=== PATIENT | male | born 1955 | race Caucasian/White ===

== ENCOUNTER → 2017-09-09 | Outpatient (CLI) | payer OTHER ==
[~2017-09-09] MED LIST: ALBUAER2 INH; AZIT250T PO; CMD5 PO; DLN100 PO; ENOX100I SQ; HYDR1SUS2 PO
[2017-09-09 12:39] LABS: ALT/SGPT 27 U/L (12-78); AST/SGOT 16 U/L (15-37); BLOOD UREA NITROGEN 17 mg/dl (7-18); BUN/CREATININE RATIO 14.9 (10-20); CARBON DIOXIDE 26 mmol/L (21-32); CHLORIDE 100 mmol/L (98-107); CREATININE 1.15 mg/dl (0.60-1.40); GLUCOSE 113 mg/dl (70-99); POTASSIUM 4.7 mmol/L (3.5-5.1); SODIUM 133 mmol/L (136-145)
[2017-09-09 12:44] LABS: ALKALINE PHOSPHATASE 151 U/L (45-117); CHOLESTEROL 231 mg/dl (0-200); CHOLESTEROL/HDL RATIO 4.5; HDL CHOLESTEROL 51 mg/dl; LDL CHOLESTEROL CALCULATED 143 mg/dl; PROSTATE SPECIFIC ANTIGEN 0.861 ng/ml (0.000-4.000); TRIGLYCERIDES 183 mg/dl (0-150); VERY LOW DENSITY LIPOPROT CALC 37 mg/dl
[2017-09-09 14:16] LABS: ESTIMATED AVERAGE GLUCOSE 108 mg/dl; HA1C FLAG Normal (Normal)
== END | disposition home or self-care (01) ==
LOC: C.LABBFT 11:09
PROVIDERS: ATTEND Nurse Practitioner
DX: I10 Essential (primary) hypertension (principal); R73.01 Impaired fasting glucose; G40.909 Epilepsy, unspecified, not intractable, without status epilepticus; E78.00 Pure hypercholesterolemia, unspecified; Z12.5 Encounter for screening for malignant neoplasm of prostate

== ENCOUNTER 2022-04-08 09:51 | Observation (INO) ==
[2022-04-08] MEDS ORDERED: methylPREDNISolone 125 MG/2 ML VIAL IV STA (10:18)
[2022-04-08] MEDS ORDERED: ALBUT/IPRATROP 3MG/0.5MG NEB 3 ML VIAL NEB STA (10:18)
[2022-04-08 10:37] LABS: Appearance Urine Clear (Clear); Bilirubin Urine Negative (Negative); Blood Urine Negative (Negative); Color Urine Yellow; Glucose Urine UA Negative (Negative); Ketones Urine Negative (Negative); Leukocyte Esterase Urine Negative (Negative); Nitrite Urine Negative (Negative); Protein Urine Negative (Negative); Specific Gravity Urine 1.014 (1.000-1.030); Urobilinogen Urine Negative (Negative); pH Urine 6.5 (4.5-7.5)
--- NOTE | 2022-04-08 10:39 | XRay Report ---
XR chest 1V portable CLINICAL HISTORY: Dyspnea TECHNIQUE: Single frontal radiograph of the chest was obtained. Comparison: Comparison is made to chest radiograph 03/07/2022 FINDINGS: No lines and tubes are seen. The cardiomediastinal silhouette is normal. The lungs are clear. No evid ence of pleural effusion or pneumothorax. IMPRESSION: No acute chest disease. ACT 112: Negative or not required by law. Electronically signed by: Andrey Campuzano M.D. 04/08/2022 10:38 AM
[2022-04-08 10:56] LABS: Alanine Aminotransferase 23 U/L (7-52); Albumin Globulin Ratio 1.4 (0.9-2); Albumin Level 4.2 gm/dl (3.4-5.0); Alkaline Phosphatase 110 U/L (34-104); Anion Gap 8 (3-11); Aspartate Aminotransferase 38 U/L (13-39); BUN Creatinine Ratio 9.3 (10-20); Bilirubin,Total 0.5 mg/dl (0.2-1.0); Blood Urea Nitrogen 8 mg/dl (6-23); Calcium 9.3 mg/dl (8.5-10.1); Carbon Dioxide 26 mmol/L (21-32); Chloride 95 mmol/L (98-107); Est GFR (African American) 103.3 ml/min; Est GFR (Non-African American) 89.1 ml/min; Globulin 3.1 gm/dl (2.5-4.0); Glucose 126 mg/dl (70-99(Fasting)); Potassium 3.7 mmol/L (3.5-5.1); Sodium 129 mmol/L (136-145); Total Protein 7.3 gm/dl (6.0-8.3)
[2022-04-08 11:02] LABS: Troponin I High Sensitivity 11.9 pg/ml (0-20)
[2022-04-08 11:11] LABS: D Dimer 640 ug/L FEU (0-500)
[2022-04-08 11:16] LABS: Hematocrit (blood only) 42.8 % (42-52); Hemoglobin 14.4 g/dL (14.0-18.0); Mean Corpuscular Hemoglobin 28.6 pg (25-34); Mean Corpuscular Hgb Conc 33.6 g/dL (32-36); Mean Corpuscular Volume 84.9 fL (80-100); Mean Platelet Volume 8.9 fL (7.4-10.4); Platelet Count 282 K/uL (130-400); RDW Coefficient of Variation 13.8 % (11.5-14.5); RDW Standard Deviation 42.4 fL (36.4-46.3); Red Blood Count 5.04 M/uL (4.7-6.1); White Blood Count 25.37 K/uL (4.8-10.8)
[2022-04-08] MEDS ORDERED: cefTRIAXone SODIUM 2,000 MG/70 ML BAG IV STA (11:24)
[2022-04-08 11:31] LABS: Basophils # (auto) 0.03 K/uL (0-0.2); Basophils % (auto) 0.1 %; Eosinophils # (auto) 0.04 K/uL (0-0.5); Eosinophils % (auto) 0.2 %; Immature Granulocytes # (auto) 0.09 K/uL (0.00-0.02); Immature Granulocytes % (auto) 0.4 %; Lymphocytes # (auto) 1.12 K/uL (1.2-3.4); Lymphocytes % (auto) 4.4 %; Monocytes # (auto) 1.68 K/uL (0.11-0.59); Monocytes % (auto) 6.6 %; Neutrophils # (auto) 22.41 K/uL (1.4-6.5); Neutrophils % (auto) 88.3 %
[2022-04-08 11:43] LABS: Influenza A virus by PCR Negative (Neg); Influenza B virus by PCR Negative (Neg); RSV by PCR Negative (Neg); SARS CoV2 RNA(COVID-19) InHosp NEGATIVE (Negative)
--- NOTE | 2022-04-08 11:53 | Emergency Department Note ---
Impression & Plan SOB (shortness of breath), Cough productive of yellow sputum, Tachypnea, Leukocytosis, Hyponatremia ED Provider Note INFORMANT: Patient ED PROVIDER(S): Anton Reilly MD CHIEF COMPLAINT: Shortness of breath PLAN: Disposition: Admitted Condition: Good Outpatient prescription management: none Referral: None MEDICAL DECISION MAKING: Patient presented with shortness of breath. He had a productive cough. Patient was very tachypneic. He had borderline low oxygen saturations but did not fall below 90%. He did feel better with supplemental oxygen. Patient was given nebulizer treatment and Solu-Medrol. Blood work is obtained. Chest x-ray was unremarkable. The patient was found to have a marked increase in his white blood cell count as well as a positive D-dimer. Troponin and BNP were negative. ECG did not reveal any acute ischemic change. Nonspecific changes present. T he patient underwent CT imaging of his chest. He was found to have groundglass opacities. No PE noted. Patient did have blood and sputum cultures done. He received IV Rocephin and doxycycline. Patient was still tachypneic and feeling short of breath. He was given an hour-long breathing treatment. Patient's blood pressure was significantly elevated and he received IV hydralazine. [facility]. Patient was evaluated in the emergency department by Dr. Gomez for further management. Also patient was found to have mild hyponatremia on his blood work. The patient has a history of mild hyponatremia. Triage Nursing notes reviewed and agree them. Vital Signs: reviewed and remarkable for tachypnea Differential diagnosis: Reactive airway disease, pneumonia, pneumothorax, COPD, CHF, infections, cardiac ischemia, pulmonary embolism, musculoskeletal, gastrointestinal, as well as other pathologies. Diagnostics interpreted by me: ECG: Twelve-lead ECG reveals a normal sinus rhythm at [address] abnormality. No ST elevation. No PACs or PVCs. Normal axis. Cardiac Monitoring: Cardiac monitoring ordered by me: The patient was placed on continuous cardiac monitoring and observed. It revealed a normal sinus rhythm at 81 beats per minute without ectopy or evidence of dysrhythmia. Imaging studies: Chest x-ray and CT scan as noted above. HPI: The patient is a 66 year old male with history of COPD who presents to the Emergency Room with complaints of shortness of breath . This started last 2 weeks and is worsening over the last several days. The patient also notes the following associated symptoms, chest pain with coughing, cough with blood-tinged sputum, generalized weakness, mild leg swelling bilaterally. The patient has tried his inhalers multiple times for relieving factors. Current pain is rated as 8/10. Pt denies LOC, headache, fevers, chills, diaphoresis, visual changes, neck pain, nausea, vomiting, abdominal pain, back pain, melena, hematochezia, urinary symptoms, numbness, weakness, lymphadenopathy, rash, or other complaints. ROS: See above HPI for pertinent positives & negatives. A total of 10 systems reviewed and were otherwise negative. PAST MEDICAL HISTORY:See Below , COPD PAST SURGICAL HISTORY:See Below, FAMILY HISTORY:See Below SOCIAL HISTORY:See Below, smoker HOME MEDICATIONS:See Below ALLERGIES:See Below VITALS:See Below PHYSICAL EXAMINATION: GENERAL: Awake, alert, uncomfortable and dyspneic appearing, in mild distress HENT: Normocephalic, atraumatic. Oropharynx unremarkable. EYES: Normal conjunctiva. Sclera non-icteric. NECK: Inspection normal. Non-tender. Supple. No nuchal rigidity. FROM. No masses. RESPIRATORY: Scattered rhonchi. Productive cough present. No wheezes. No rales. Increased respiratory effort. Tachypnea. CARDIAC: Normal rate. Normal rhythm. No murmurs. No rubs. Extremities warm and well perfused. Pulses equal. No JVD. GI: Soft, non-distended. No tenderness to palpation. No rebound or guarding. No masses. RECTAL: Deferred. MUSCULOSKELETAL: Atraumatic. Chest examination reveals no tenderness. The back is symmetrical on inspection without obvious abnormality. There is no CVA tenderness to palpation. No joint edema. LOWER EXTREMITIES: Calves are equal size bilaterally and non-tender. 1+ edema. No discoloration. NEURO: Normal sensorium. No sensory or motor deficits noted. SKIN: No rash or jaundice noted. Anton Reilly MD Past Med/Surg History Medical History (Updated 04/08/22 @ 14:10 by Archie Gomez MD) Fracture, carpal bone Surgical History Thrombophlebitis Tonsillectomy planned Family History Other Adopted Family history unknown Social History (Updated 02/12/22 @ 11:39 by Sofi Eli LPN) Smoking Status: Current every day smoker Tobacco Type: Cigarettes Age Started Using Tobacco: 18; packs per day: 0.25; Years Smoked: 44; Cigarettes Per Day: 20; Second Hand Exposure: Yes; Hx Alcohol Use: Yes Alcohol type: beer Hx Substance Use: No Preferred Language: Czech Communication Ability: Effective Visual Impairment: No Limitations Hearing Ability: Normal [employer] Consultant Required: No marital status: Single Current Living Situation: Other Current Living Situation Comment: roommate current occupational status: retired Feels Safe at Home: Yes Childhood Exposure to Second-Hand Smoke: Yes Diet Comment: Doesn't eat after 8 PM caffeine: Yes during the past year weight has: remained stable Dental Care, Regularly: No Physical Activity Frequency: 1-2 Times per Week Physical Activity Frequency Comment: weight lifting 60minutes Seatbelt Use: always Sunscreen Use: No Assistive Devices: None and Glasses Allergies Allergies Allergy/AdvReac Type Severity Reaction Status Date / Time phenobarbital Allergy Severe MIGRAINE/SEVERE Verified 02/12/22 11:32 PAIN Home Meds Home Medications Medication Instructions Recorded Confirmed aspirin 81 mg tablet,delayed 81 mg PO HS #30 tab 07/13/19 04/08/22 release tiotropium bromide 2.5 5 mcg INHALATION DAILY 02/04/22 04/08/22 mcg/actuation mist for inhalation (Spiriva Respimat) naproxen sodium 220 mg tablet 220 mg PO Q12H PRN 04/08/22 04/08/22 (Aleve) Previous Rx's Medication Instructions Recorded folic acid 1 mg tablet 1 mg PO DAILY #90 tab 12/01/21 phenytoin sodium extended 100 mg 300 mg PO BID #180 cap 01/01/22 capsule albuterol sulfate 90 mcg/actuation 2 puff INHALATION Q4H PRN #18 g 02/05/22 aerosol inhaler (Ventolin HFA) sildenafil 50 mg tablet 50 mg PO DAILY PRN #20 tab 02/12/22 budesonide-formoterol HFA 160 2 puff INH BID #10.2 gm 02/26/22 mcg-4.5 mcg/actuation aerosol inhaler (Symbicort) Results & Data (ED) Vital Signs Vital Signs - 24 hr 04/08/22 09:54 04/08/22 10:42 04/08/22 10:46 Temperature 36.8 C Temperature Source Temporal Artery Scan Pulse Rate 87 85 Pulse Rate [Apical] 85 Pulse Rhythm Regular Pulse Rhythm [Apical] Regular Pulse Strength [Apical] Normal Respiratory Rate 18 30 H 28 H Respiratory Effort / Characteristics Short of Breath Short of Breath Respiratory Depth Normal Respiratory Pattern Regular Blood Pressure 169/89 H Blood Pressure [Right Arm] 158/95 H Blood Pressure Mean 115 Blood Pressure Mean [Right Arm] 116 Blood Pressure Position [Right Arm] Sitting Pulse Oximetry 93 99 98 Oxygen Delivery Method Room Air Nasal Cannula Nasal Cannula Oxygen Flow Rate 4 4 Sepsis Recent Fever Within 48 Hours No Sepsis New/Unexplained Change in Mental Status No Sepsis Action Taken by Nursing No Action Required 04/08/22 10:54 04/08/22 12:26 04/08/22 12:55 Temperature Temperature Source Pulse Rate Pulse Rate [Apical] 75 76 Pulse Rhythm Pulse Rhythm [Apical] Pulse Strength [Apical] Respiratory Rate 24 19 Respiratory Effort / Characteristics Short of Breath Short of Breath Respiratory Depth Respiratory Pattern Blood Pressure Blood Pressure [Right Arm] 178/124 H Blood Pressure Mean Blood Pressure Mean [Right Arm] 142 Blood Pressure Position [Right Arm] Pulse Oximetry 99 99 99 Oxygen Delivery Method Nasal Cannula Nasal Cannula Oxygen Flow Rate 4 2 Sepsis Recent Fever Within 48 Hours Sepsis New/Unexplained Change in Mental Status Sepsis Action Taken by Nursing 04/08/22 14:05 Temperature Temperature Source Pulse Rate Pulse Rate [Apical] 81 Pulse Rhythm Pulse Rhythm [Apical] Pulse Strength [Apical] Respiratory Rate 22 Respiratory Effort / Characteristics Respiratory Depth Respiratory Pattern Blood Pressure Blood Pressure [Right Arm] 172/99 H Blood Pressure Mean Blood Pressure Mean [Right Arm] 123 Blood Pressure Position [Right Arm] Pulse Oximetry 100 Oxygen Delivery Method Nebulizer Oxygen Flow Rate Sepsis Recent Fever Within 48 Hours Sepsis New/Unexplained Change in Mental Status Sepsis Action Taken by Nursing Laboratory Data Result diagrams: 04/08/22 10:19 04/08/22 10:19 Lab Results 04/08/22 04/08/22 04/08/22 Range/Units 10:19 10:19 10:19 WBC 25.37 H (4.8-10.8) K/uL RBC 5.04 (4.7-6.1) M/uL Hgb 14.4 (14.0-18.0) g/dL Hct 42.8 (42-52) % MCV 84.9 (80-100) fL MCH 28.6 (25-34) pg MCHC 33.6 (32-36) g/dL RDW Std Deviation 42.4 (36.4-46.3) fL RDW Coeff of Tammi 13.8 (11.5-14.5) % Plt Count 282 (130-400) K/uL MPV 8.9 (7.4-10.4) fL Immature Gran % (Auto) 0.4 % Neut % (Auto) 88.3 % Lymph % (Auto) 4.4 % [place] % (Auto) 6.6 % Eos % (Auto) 0.2 % Baso % (Auto) 0.1 % Neut # (Auto) 22.41 H (1.4-6.5) K/uL Lymph # (Auto) 1.12 L (1.2-3.4) K/uL [place] # (Auto) 1.68 H (0.11-0.59) K/uL Eos # (Auto) 0.04 (0-0.5) K/uL Baso # (Auto) 0.03 (0-0.2) K/uL Immature Gran # (Auto) 0.09 H (0.00-0.02) K/uL D-Dimer 640 H* (0-500) ug/L FEU Sodium (136-145) mmol/L Potassium (3.5-5.1) mmol/L Chloride (98-107) mmol/L Carbon Dioxide (21-32) mmol/L Anion Gap (3-11) BUN (6-23) mg/dl Creatinine (0.6-1.4) mg/dl Est Cr Clr Drug Dosing Est GFR ( Amer) ml/min Est GFR (Non-Af Amer) ml/min BUN/Creatinine Ratio (10-20) Glucose (70-99(Fasting)) mg/dl Calcium (8.5-10.1) mg/dl Total Bilirubin (0.2-1.0) mg/dl AST (13-39) U/L ALT (7-52) U/L Alkaline Phosphatase (34-104) U/L Troponin I High Sens (0-20) pg/ml B-Natriuretic Peptide 68 (0-100) pg/ml Total Protein (6.0-8.3) gm/dl Albumin (3.4-5.0) gm/dl Globulin (2.5-4.0) gm/dl Albumin/Globulin Ratio (0.9-2) Urine Color Urine Appearance (Clear) Urine pH (4.5-7.5) Ur Specific [place] (1.000-1.030) Urine Protein (Negative) Urine Glucose (UA) (Negative) Urine Ketones (Negative) Urine Blood (Negative) Urine Nitrite (Negative) Urine Bilirubin (Negative) Urine Urobilinogen (Negative) Ur Leukocyte Esterase (Negative) SARS-CoV-2 (PCR) (Negative) Influenza Type A (PCR) (Neg) Influenza Type B (PCR) (Neg) RSV (RT-PCR) (Neg) 04/08/22 04/08/22 04/08/22 Range/Units 10:19 10:19 10:37 WBC (4.8-10.8) K/uL RBC (4.7-6.1) M/uL Hgb (14.0-18.0) g/dL Hct (42-52) % MCV (80-100) fL MCH (25-34) pg MCHC (32-36) g/dL RDW Std Deviation (36.4-46.3) fL RDW Coeff of Tammi (11.5-14.5) % Plt Count (130-400) K/uL MPV (7.4-10.4) fL Immature Gran % (Auto) % Neut % (Auto) % Lymph % (Auto) % [place] % (Auto) % Eos % (Auto) % Baso % (Auto) % Neut # (Auto) (1.4-6.5) K/uL Lymph # (Auto) (1.2-3.4) K/uL [place] # (Auto) (0.11-0.59) K/uL Eos # (Auto) (0-0.5) K/uL Baso # (Auto) (0-0.2) K/uL Immature Gran # (Auto) (0.00-0.02) K/uL D-Dimer (0-500) ug/L FEU Sodium 129 L (136-145) mmol/L Potassium 3.7 (3.5-5.1) mmol/L Chloride 95 L (98-107) mmol/L Carbon Dioxide 26 (21-32) mmol/L Anion Gap 8 (3-11) BUN 8 (6-23) mg/dl Creatinine 0.86 (0.6-1.4) mg/dl Est Cr Clr Drug Dosing Not Reportable Est GFR ( Amer) 103.3 ml/min Est GFR (Non-Af Amer) 89.1 ml/min BUN/Creatinine Ratio 9.3 L (10-20) Glucose 126 H (70-99(Fasting)) mg/dl Calcium 9.3 (8.5-10.1) mg/dl Total Bilirubin 0.5 (0.2-1.0) mg/dl AST 38 (13-39) U/L ALT 23 (7-52) U/L Alkaline Phosphatase 110 H (34-104) U/L Troponin I High Sens 11.9 (0-20) pg/ml B-Natriuretic Peptide (0-100) pg/ml Total Protein 7.3 (6.0-8.3) gm/dl Albumin 4.2 (3.4-5.0) gm/dl Globulin 3.1 (2.5-4.0) gm/dl Albumin/Globulin Ratio 1.4 (0.9-2) Urine Color Yellow Urine Appearance Clear (Clear) Urine pH 6.5 (4.5-7.5) Ur Specific [place] 1.014 (1.000-1.030) Urine Protein Negative (Negative) Urine Glucose (UA) Negative (Negative) Urine Ketones Negative (Negative) Urine Blood Negative (Negative) Urine Nitrite Negative (Negative) Urine Bilirubin Negative (Negative) Urine Urobilinogen Negative (Negative) Ur Leukocyte Esterase Negative (Negative) SARS-CoV-2 (PCR) NEGATIVE (Negative) Influenza Type A (PCR) Negative (Neg) Influenza Type B (PCR) Negative (Neg) RSV (RT-PCR) Negative (Neg) Administered Medications Doxycycline Hyclate 100 mg/ (Dextrose) 110 mls @ 50 mls/hr IV NOW STA Stop: 04/08/22 15:24 Last Admin: 04/08/22 14:04 Dose: 50 mls/hr Documented by: [id number] Discontinued Medications Albuterol (Albut/Ipratrop 3mg/0.5mg Neb 3 Ml Vial) 3 ml NEB NOW STA; Protocol Stop: 04/08/22 10:19 Last Admin: 04/08/22 10:33 Dose: 3 ml Documented by: [id number] Albuterol (Albut/Ipratrop 3mg/0.5mg Neb 3 Ml Vial) 12 ml NEB ONE ONE; Protocol Stop: 04/08/22 13:14 Last Admin: 04/08/22 13:49 Dose: 12 ml Documented by: [id number] Guaifenesin (Guaifenesin 600 Mg Tabcr) 1,200 mg PO ONE STA Stop: 04/08/22 13:56 Last Admin: 04/08/22 14:04 Dose: 1,200 mg Documented by: [id number] Hydralazine HCl (Hydralazine Hcl 20 Mg/Ml Vial) 5 mg IV NOW ONE Stop: 04/08/22 13:44 Last Admin: 04/08/22 14:04 Dose: Not Given Documented by: [id number] Ceftriaxone Sodium (Rocephin) 2,000 mg in 70 mls @ 140 mls/hr IV NOW STA Stop: 04/08/22 11:53 Last Infusion: 04/08/22 12:24 Dose: 0 mls/hr Documented by: [id number] Admin: 04/08/22 11:37 Dose: 140 mls/hr Documented by: [id number] Ioversol (Optiray 320 125ml) 119 ml IV ONCE ONE Stop: 04/08/22 12:03 Last Admin: 04/08/22 12:03 Dose: 119 ml Documented by: [id number] Methylprednisolone (Methylprednisolone 125 Mg/2 Ml Vial) 125 mg IV NOW STA Stop: 04/08/22 10:19 Last Admin: 04/08/22 10:33 Dose: 125 mg Documented by: [id number] Imaging Data Radiologist's Impression: Chest X-Ray 04/08/22 10:19 XR chest 1V portable CLINICAL HISTORY: Dyspnea TECHNIQUE: Single frontal radiograph of the chest was obtained. Comparison: Comparison is made to chest radiograph 03/07/2022 FINDINGS: No lines and tubes are seen. The cardiomediastinal silhouette is normal. The lungs are clear. No evidence of pleural effusion or pneumothorax. IMPRESSION: No acute chest disease. ACT 112: Negative or not required by law. Electronically signed by: Andrey Campuzano M.D. 04/08/2022 10:38 AM Chest CTA 06/26/22 11:24 CT angio chest PE protocol CLINICAL HISTORY: SOB, +dimer TECHNIQUE: Multidetector row helical CT of the chest was performed with angiographic protocol. Coronal and sagittal reformations were obtained. Coronal and sagittal MIPS were obtained from the axial data set and were submitted for review. Automated dose lowering techniques and/or adjustment according to patient size were utilized for this exam. CT DOSE: 481.53 mGycm Comparison: None available at the time of this dictation. FINDINGS: Lungs and pleura: Diffuse centrilobular emphysema is seen most prominent in the upper lobes. Groundglass foci are seen bilaterally, most prominent in the right middle lobe. Nodular densities are seen in the lingula measuring 13 mm in the left lower lobe measuring approximately 8 mm. Heart and pericardium: Heart size is normal. No pericardial effusion. Vessels: Moderate atherosclerotic changes in the aorta and coronary arteries. Mediastinum and miriam: Multiple enlarged right hilar nodes are seen measuring up to 16 short axis. No left hilar adenopathy is seen. A partially calcified lymph node is the subcarinal station. Chest wall and lower neck: Unremarkable. Abdomen: A hiatal hernia is seen. Bones: Degenerative changes in the thoracic spine. IMPRESSION: 1. No evidence of pulmonary embolism. 2. Enlarged right hilar nodes are seen. Clinical correlation is recommended as these may be reactive or secondary to malignancy. 3. Multifocal groundglass nodules may represent infectious/inflammatory process. Nodular densities are seen measuring up to 13 mm. Short-term follow-up is recommended to ensure resolution. ACT 112: Negative or not required by law. Electronically signed by: Andrey Campuzano M.D. 04/08/2022 12:27 PM Discharge Plan Visit Data Chief Complaint: Shortness of Breath/Dyspnea Stated Complaint: COUGHING/WEAK/NO APPETITIE/WEAK/SOB ED Provider: Anton Reilly Discharge Problem: SOB (shortness of breath), Cough productive of yellow sputum, Tachypnea, Leukocytosis, Hyponatremia Forms Stand Alone Forms: My [facility] [employer] Prescriptions Prescriptions: No Action folic acid 1 mg tablet 1 mg PO DAILY Qty: 90 RF: 3 phenytoin sodium extended 100 mg capsule 300 mg PO BID Qty: 180 RF: 5 albuterol sulfate [Ventolin HFA] 90 mcg/actuation HFA aerosol inhaler 2 puff inhalation Q4H PRN (Reason: shortness of breath or wheezing) Qty: 18 RF: 5 budesonide-formoterol [Symbicort] 160-4.5 mcg/actuation HFA aerosol inhaler 2 puff INH BID Qty: 10.2 RF: 5 sildenafil 50 mg tablet 50 mg PO DAILY PRN (Reason: sexual activity) Qty: 20 RF: 12 aspirin 81 mg tablet,delayed release (DR/EC) 81 mg PO HS Qty: 30 RF: 0 Spiriva Respimat 2.5 mcg/actuation mist 5 mcg INHALATION DAILY RF: 0 naproxen sodium [Aleve] 220 mg Tablet 220 mg PO Q12H PRN (Reason: Pain) RF: 0 Referrals Referrals: Noemy Arroyo CRNP [Primary Care Provider] -
[2022-04-08] MEDS ORDERED: OPTIRAY 320 125ml IV ONE (12:02)
--- NOTE | 2022-04-08 12:28 | CT Scan Report ---
CT angio chest PE protocol CLINICAL HISTORY: SOB, +dimer TECHNIQUE: Multidetector row helical CT of the chest was performed with angiographic protocol. Flanagan l and sagittal reformations were obtained. Coronal and sagittal MIPS were obtained from the axial elif a set and were submitted for review. Automated dose lowering techniques and/or adjustment according to patient size were utilized for this exam. CT DOSE: 481.53 mGycm Comparison: None available at the time of this dictation. FINDINGS: Lungs and pleura: Diffuse centrilobular emphysema is seen most prominent in the upper lobes. Groundgl ass foci are seen bilaterally, most prominent in the right middle lobe. Nodular densities are seen in the lingula measuring 13 mm in the left lower lobe measuring approximately 8 mm. Heart and pericardium: Heart size is normal. No pericardial effusion. Vessels: Moderate atherosclerotic changes in the aorta and coronary arteries. Mediastinum and miriam: Multiple enlarged right hilar nodes are seen measuring up to 16 short axis. No left hilar adenopathy is seen. A partially calcified lymph node is the subcarinal station. Chest wall and lower neck: Unremarkable. Abdomen: A hiatal hernia is seen. Bones: Degenerative changes in the thoracic spine. IMPRESSION: 1. No evidence of pulmonary embolism. 2. Enlarged right hilar nodes are seen. Clinical correlation is recommended as these may be reactive or secondary to malignancy. 3. Multifocal groundglass nodules may represent infectious/inflammatory process. Nodular densities a re seen measuring up to 13 mm. Short-term follow-up is recommended to ensure resolution. ACT 112: Negative or not required by law. Electronically signed by: Andrey Campuzano M.D. 04/08/2022 12:27 PM
[2022-04-08] MEDS ORDERED: DOXYCYCLINE HYCLATE 100 MG in DEXTROSE 5% 100 ML IV STA (13:13)
[2022-04-08] MEDS ORDERED: ALBUT/IPRATROP 3MG/0.5MG NEB 3 ML VIAL NEB ONE (13:13)
[2022-04-08] MEDS ORDERED: hydrALAZINE HCL 20 MG/ML VIAL IV ONE (13:43)
[2022-04-08] MEDS ORDERED: guaiFENesin 600 MG TABCR PO STA (13:55)
--- NOTE | 2022-04-08 14:12 | History & Physical Report ---
Date of Service April 08, 2022 Assessment & Plan (1) COPD exacerbation: Plan: Duonebs QID + q2h PRN Solu-medrol 125mg IV given in ER continue 40mg IV BID Continue doxycycline 100mg PO BID, given no definitive consolidation and negative procalcitonin will discontinue ceftriaxone Continue his routine Symbicort and Spiriva or hospital formulary equivalent Incentive spirometer, flutter valve [facility] COPD referral (2) Abnormal CT scan, chest: Plan: Recommend short term 4-[address] with IV contrast (3) Hyponatremia: Plan: This appears to be long standing, suspect related to poor nutritional intake. Will continue to monitor with BMP in AM (4) Nicotine dependence: Plan: Declining nicotine replacement products at this time (5) Hypertension: Plan: Monitor. Suspect acutely up from respiratory distress, hydralazine ordered by ER physician discontinued and not given. (6) Seizure disorder: Plan: Continue phenytoin 300mg PO BID Plan: VTE Prophylaxis - Lovenox 40 mg SQ daily Diet - heart healthy Disposition - observation status based on expected one midnight stay to med/surg Admission and Anticipated Discharge Date Admission Date: April 08, 2022 History of Present Illness Chief Complaint: Shortness of breath Primary Care Provider: CL Rosario Nelson Collado is a 66 year old male smoker with COPD who presents to the ER with shortness of breath and increasing cough and nasal congestion over the last week. He has been utilizing his albuterol inhaler regularly but not called up his physician for a prednisone/azithromycin rescue pack. He denies any chest pain except while coughing. No fever, chills or sinus pain. No loss of taste or smell. He continues to smoke during this exacerbation approximately a pack/day. Int he ER he was significantly tachypneic and requiring 2LPM O2 at rest to maintain O2 sats > 88%. He was wheezing and therefore diagnosed with COPD exacerbation. He was treated with 125mg IV Solu-medrol and 3ml Duoneb with only mild decrease in his symptoms and continued tachypnea therefore was referred to medicine for admission and ongoing management of COPD exacerbation. He was given ceftriaxone and doxycyline to cover for bacterial pneumonia given significant neutrophilia (although notably has some neutrophilia at baseline). Patient currently receiving hour long duoneb. Allergies Allergy/AdvReac Type Severity Reaction Status Date / Time phenobarbital Allergy Severe MIGRAINE/SEVERE Verified 02/12/22 11:32 PAIN Home Medications Medication Instructions Recorded Confirmed Type aspirin 81 mg tablet,delayed 81 mg PO HS #30 tab 07/13/19 04/08/22 History release folic acid 1 mg tablet 1 mg PO DAILY #90 tab 12/01/21 04/08/22 Rx phenytoin sodium extended 100 mg 300 mg PO BID #180 cap 01/01/22 04/08/22 Rx capsule tiotropium bromide 2.5 5 mcg INHALATION DAILY 02/04/22 04/08/22 History mcg/actuation mist for inhalation (Spiriva Respimat) albuterol sulfate 90 mcg/actuation 2 puff INHALATION Q4H PRN #18 g 02/05/22 04/08/22 Rx aerosol inhaler (Ventolin HFA) sildenafil 50 mg tablet 50 mg PO DAILY PRN #20 tab 02/12/22 04/08/22 Rx budesonide-formoterol HFA 160 2 puff INH BID #10.2 gm 02/26/22 04/08/22 Rx mcg-4.5 mcg/actuation aerosol inhaler (Symbicort) naproxen sodium 220 mg tablet 220 mg PO Q12H PRN 04/08/22 04/08/22 History (Aleve) Past Med/Surg History Medical History (Updated 04/09/22 @ 06:52 by Archie Gomez MD) Fracture, carpal bone Surgical History Thrombophlebitis Tonsillectomy planned Family History Other Adopted Family history unknown Social History (Updated 02/12/22 @ 11:39 by Sofi Eli LPN) Smoking Status: Current every day smoker Tobacco Type: Cigarettes Age Started Using Tobacco: 18; packs per day: 0.25; Years Smoked: 44; Cigarettes Per Day: 25; Second Hand Exposure: No; Do You Dip or Chew Tobacco: No; Tobacco Cessation Education Requested by Patient: Yes Hx Alcohol Use: Yes Alcohol type: beer Hx Substance Use: No Preferred Language: Chinese Communication Ability: Effective Visual Impairment: No Limitations Hearing Ability: Normal Automobile Body Worker Required: No Beliefs That Will Affect Care: None marital status: Single Current Living Situation: Alone and Other current occupational status: retired Other Information That Helps Us Care for You: No Feels Safe at Home: Yes Safety Concerns: Feels Safe At This Time Childhood Exposure to Second-Hand Smoke: Yes Diet Comment: Doesn't eat after 8 PM caffeine: Yes during the past year weight has: remained stable Dental Care, Regularly: No Physical Activity Frequency: 1-2 Times per Week Physical Activity Frequency Comment: weight lifting 60minutes Seatbelt Use: always Sunscreen Use: No Assistive Devices: None and Glasses Review of Systems Review of Systems: All systems reviewed & are unremarkable except as noted in HPI & below Physical Exam Constitutional: well developed and + acute distress (respiratory); + not well nourished Eyes: + anicteric sclerae; normal pupil size ENMT: external ear and nose normal, oropharynx normal Neck: trachea midline, no thyromegaly Respiratory: + respiratory distress, + labored breathing, + retractions, + uses accessory muscles, + tachypneic and + prolonged expiratory phase; + not able to speak in complete sentence and no stridor Auscultation: + diminished lung sounds (throughout) and + wheezes (expiratory throughout); no crackles, no rales and no rhonchi Cardiovascular: RRR, no murmur, no edema Extremities: normal capillary refill; no calf tenderness and no pedal edema Gastrointestinal (Abdomen): normal bowel sounds, soft, nontender, no hepatosplenomegaly Musculoskeletal: no cyanosis or clubbing, extremities motor strength 5/5 Skin: no rashes, warm and dry Neurologic: moves all extremities and awake; no focal motor deficits and not confused Psychiatric: A+Ox3, euthymic affect Genitourinary: no CVA tenderness Results & Data Results & Data ([facility]) Vital Signs (Past 12 Hours) Vital Signs Temp Pulse Pulse Resp BP BP Pulse Ox 04/08/22 14:05 81 22 172/99 H 100 04/08/22 12:55 76 19 178/124 H 99 04/08/22 12:26 75 24 99 04/08/22 10:54 99 04/08/22 10:46 85 28 H 158/95 H 98 04/08/22 10:42 85 30 H 99 04/08/22 09:54 36.8 C 87 18 169/89 H 93 Laboratory Results Abnormal lab results 04/08/22 04/08/22 04/08/22 Range/Units 10:19 10:19 10:19 WBC 25.37 H (4.8-10.8) K/uL Neut # (Auto) 22.41 H (1.4-6.5) K/uL Lymph # (Auto) 1.12 L (1.2-3.4) K/uL [place] # (Auto) 1.68 H (0.11-0.59) K/uL Immature Gran # (Auto) 0.09 H (0.00-0.02) K/uL D-Dimer 640 H* (0-500) ug/L FEU Sodium 129 L (136-145) mmol/L Chloride 95 L (98-107) mmol/L BUN/Creatinine Ratio 9.3 L (10-20) Glucose 126 H (70-99(Fasting)) mg/dl Alkaline Phosphatase 110 H (34-104) U/L Diagnostic Findings XR chest 1V portable CLINICAL HISTORY: Dyspnea TECHNIQUE: Single frontal radiograph of the chest was obtained. Comparison: Comparison is made to chest radiograph 03/07/2022 FINDINGS: No lines and tubes are seen. The cardiomediastinal silhouette is normal. The lungs are clear. No evidence of pleural effusion or pneumothorax. IMPRESSION: No acute chest disease. CT angio chest PE protocol CLINICAL HISTORY: SOB, +dimer TECHNIQUE: Multidetector row helical CT of the chest was performed with angiographic protocol. Coronal and sagittal reformations were obtained. Coronal and sagittal MIPS were obtained from the axial data set and were submitted for review. Automated dose lowering techniques and/or adjustment according to patient size were utilized for this exam. CT DOSE: 481.53 mGycm Comparison: None available at the time of this dictation. FINDINGS: Lungs and pleura: Diffuse centrilobular emphysema is seen most prominent in the upper lobes. Groundglass foci are seen bilaterally, most prominent in the right middle lobe. Nodular densities are seen in the lingula measuring 13 mm in the left lower lobe measuring approximately 8 mm. Heart and pericardium: Heart size is normal. No pericardial effusion. Vessels: Moderate atherosclerotic changes in the aorta and coronary arteries. Mediastinum and miriam: Multiple enlarged right hilar nodes are seen measuring up to 16 short axis. No left hilar adenopathy is seen. A partially calcified lymph node is the subcarinal station. Chest wall and lower neck: Unremarkable. Abdomen: A hiatal hernia is seen. Bones: Degenerative changes in the thoracic spine. IMPRESSION: 1. No evidence of pulmonary embolism. 2. Enlarged right hilar nodes are seen. Clinical correlation is recommended as these may be reactive or secondary to malignancy. 3. Multifocal groundglass nodules may represent infectious/inflammatory process. Nodular densities are seen measuring up to 13 mm. Short-term follow-up is recommended to ensure resolution. Medications Administered ER Medications Given: Solu-medrol 125mg IV Duoneb 3ml NEB Ceftriaxone 2g IV Duoneb 12ml NEB ECG Indication: SOB/dyspnea Rate (beats per minute): 86 Rhythm: normal sinus Findings: no acute ischemic change Comparison ECG Date: from (February 04, 2022) Change: no significant change Code Status & VTE Plan Code Status Full VTE Prophylaxis Plan VTE Prophylaxis will be ordered: Yes PG Care Time/CCT Total # of Minutes Spent Total Time Spent with Patient: Total time spent is greater than 50% in coordination of care (as documented) at patient's floor/unit and/or counseling patient: Coding Level of Care Code INT OBSERVATION CARE 50M LVL 2 Diagnoses COPD exacerbation J44.1 Nicotine dependence F17.[address] scan, chest R93.89 Seizure disorder G40.909 Hyponatremia E87.1
[2022-04-08] MEDS ORDERED: POLYETHYLENE (MIRALAX) 17 GM PACK PO PRN (15:39)
[2022-04-08] MEDS ORDERED: ACETAMINOPHEN 325 MG TAB PO PRN (15:39)
[2022-04-08] MEDS ORDERED: ONDANSETRON INJ 2 MG/ML 2 ML VIAL IV PRN (15:39)
[2022-04-08] MEDS ORDERED: ALBUT/IPRATROP 3MG/0.5MG NEB 3 ML VIAL NEB PRN (16:32)
[2022-04-08] MEDS: guaiFENesin 600 MG TABCR PO SCH (20:18)
[2022-04-08] MEDS: DOXYCYCLINE HYCLATE 100 MG CAP PO SCH (20:18)
[2022-04-08] MEDS: methylPREDNISolone 40 MG in SYRINGE 0 ML IV SCH (20:19)
[2022-04-08] MEDS: PHENYTOIN SODIUM ER 100 MG CAP PO SCH (20:19)
[2022-04-08] MEDS: ALBUT/IPRATROP 3MG/0.5MG NEB 3 ML VIAL INH SCH (20:30)
[2022-04-08] MEDS ORDERED: ENOXAPARIN INJ 40 MG/0.4 ML SYR SQ SCH (21:00)
[2022-04-08] MEDS ORDERED: ASPIRIN 81 MG ECTAB PO SCH (21:00)
--- NOTE | 2022-04-08 21:22 | Electrocardiogram Report ---
Test Reason : Blood Pressure : / mmHG Vent. Rate : 086 BPM Atrial Rate : 086 BPM P-R Int : 150 ms QRS Dur : 086 ms QT Int : 360 ms P-R-T Axes : 067 062 108 degrees QTc Int : 430 ms Poor data quality, interpretation may be adversely affected Normal sinus rhythm Normal ECG When compared with ECG of 04-FEB-2022 18:43, No significant change was found Confirmed by Ganga Linder ([id number]) on 04/08/2022 9:21:26 PM Referred By: REFERRED SELF Confirmed By:Ganga Linder
[2022-04-09] MEDS: ALBUT/IPRATROP 3MG/0.5MG NEB 3 ML VIAL INH SCH ×2 (06:09→10:29)
[2022-04-09 07:20] LABS: Basophils # (auto) 0.02 K/uL (0-0.2); Basophils % (auto) 0.1 %; Eosinophils # (auto) 0.14 K/uL (0-0.5); Eosinophils % (auto) 0.9 %; Hematocrit (blood only) 38.6 % (42-52); Hemoglobin 13.2 g/dL (14.0-18.0); Immature Granulocytes # (auto) 0.04 K/uL (0.00-0.02); Immature Granulocytes % (auto) 0.2 %; Lymphocytes # (auto) 1.87 K/uL (1.2-3.4); Lymphocytes % (auto) 11.7 %; Mean Corpuscular Hemoglobin 29.3 pg (25-34); Mean Corpuscular Hgb Conc 34.2 g/dL (32-36); Mean Corpuscular Volume 85.8 fL (80-100); Monocytes # (auto) 1.17 K/uL (0.11-0.59); Monocytes % (auto) 7.3 %; Neutrophils # (auto) 12.78 K/uL (1.4-6.5); Neutrophils % (auto) 79.8 %; Platelet Count 243 K/uL (130-400); RDW Coefficient of Variation 13.7 % (11.5-14.5); RDW Standard Deviation 43.4 fL (36.4-46.3); White Blood Count 16.02 K/uL (4.8-10.8)
[2022-04-09 07:29] LABS: BUN Creatinine Ratio 20.9 (10-20); Calcium 8.9 mg/dl (8.5-10.1); Creatinine Clr Calc Pharmacy 92.9 ml/min; Est GFR (African American) 103.3 ml/min; Est GFR (Non-African American) 89.1 ml/min; Potassium 3.9 mmol/L (3.5-5.1)
[2022-04-09] MEDS ORDERED: FOLIC ACID 1 MG TAB PO SCH (09:00)
[2022-04-09] MEDS ORDERED: UMECLIDINIUM BROMIDE 62.5MCG/BLISTER 7 PUFFS/INHALER INH SCH (09:00)
[2022-04-09] MEDS ORDERED: FLUTICASONE/VILANTEROL 200/25MCG 14 PUFFS/INHALER INH SCH (09:00)
[2022-04-09] MEDS: PHENYTOIN SODIUM ER 100 MG CAP PO SCH (09:13)
[2022-04-09] MEDS: DOXYCYCLINE HYCLATE 100 MG CAP PO SCH (09:13)
[2022-04-09] MEDS: guaiFENesin 600 MG TABCR PO SCH (09:13)
[2022-04-09] MEDS: methylPREDNISolone 40 MG in SYRINGE 0 ML IV SCH (09:14)
[2022-04-09] MEDS ORDERED: ALBUTEROL HFA 8 GM INHALER INH PRN (12:31)
--- NOTE | 2022-04-09 12:46 | Discharge Summary ---
Date of Service April 09, 2022 Admission HPI Per Admitting Provider Nelson Collado is a 66 year old male smoker with COPD who presents to the ER with shortness of breath and increasing cough and nasal congestion over the last week. He has been utilizing his albuterol inhaler regularly but not called up his physician for a prednisone/azithromycin rescue pack. He denies any chest pain except while coughing. No fever, chills or sinus pain. No loss of taste or smell. He continues to smoke during this exacerbation approximately a pack/day. Int he ER he was significantly tachypneic and requiring 2LPM O2 at rest to maintain O2 sats > 88%. He was wheezing and therefore diagnosed with COPD exacerbation. He was treated with 125mg IV Solu-medrol and 3ml Duoneb with only mild decrease in his symptoms and continued tachypnea therefore was referred to medicine for admission and ongoing management of COPD exacerbation. He was given ceftriaxone and doxycyline to cover for bacterial pneumonia given significant neutrophilia (although notably has some neutrophilia at baseline). Patient cur rently receiving hour long duoneb. Principal Diagnosis 1. AECOPD 2. Abnormal CT lung Discharge Exam GENERAL: 66 yo Well-developed, well-nourished WM. NAD. LUNGS: Nonlabored. Poor air exchange. Some end expiratory wheezes noted anteriorly. Decreased throughout posteriorly. CARDIOVASCULAR: Regular rate and rhythm. ABDOMEN: Soft, non-tender and non-distended. BS normoactive x 4 quad. EXTREMITIES: No edema. Non-tender. Peripheral pulses +2/4. NEUROLOGIC: A&O x3. Nonfocal PSYCHIATRIC: Cooperative. Appropriate mood and affect. SKIN: Warm, dry, intact. No rashes or lesions. Discharge Data Allergies Allergy/AdvReac Type Severity Reaction Status Date / Time phenobarbital Allergy Severe MIGRAINE/SEVERE Verified 02/12/22 11:32 PAIN Ordered Studies Chest X-Ray 04/08/22 10:19 XR chest 1V portable CLINICAL HISTORY: Dyspnea TECHNIQUE: Single frontal radiograph of the chest was obtained. Comparison: Comparison is made to chest radiograph 03/07/2022 FINDINGS: No lines and tubes are seen. The cardiomediastinal silhouette is normal. The lungs are clear. No evidence of pleural effusion or pneumothorax. IMPRESSION: No acute chest disease. ACT 112: Negative or not required by law. Electronically signed by: Andrey Campuzano M.D. 04/08/2022 10:38 AM Chest CTA 04/08/22 11:24 CT angio chest PE protocol CLINICAL HISTORY: SOB, +dimer TECHNIQUE: Multidetector row helical CT of the chest was performed with angiographic protocol. Coronal and sagittal reformations were obtained. Coronal and sagittal MIPS were obtained from the axial data set and were submitted for review. Automated dose lowering techniques and/or adjustment according to patient size were utilized for this exam. CT DOSE: 481.53 mGycm Comparison: None available at the time of this dictation. FINDINGS: Lungs and pleura: Diffuse centrilobular emphysema is seen most prominent in the upper lobes. Groundglass foci are seen bilaterally, most prominent in the right middle lobe. Nodular densities are seen in the lingula measuring 13 mm in the left lower lobe measuring approximately 8 mm. Heart and pericardium: Heart size is normal. No pericardial effusion. Vessels: Moderate atherosclerotic changes in the aorta and coronary arteries. Mediastinum and miriam: Multiple enlarged right hilar nodes are seen measuring up to 16 short axis. No left hilar adenopathy is seen. A partially calcified lymph node is the subcarinal station. Chest wall and lower neck: Unremarkable. Abdomen: A hiatal hernia is seen. Bones: Degenerative changes in the thoracic spine. IMPRESSION: 1. No evidence of pulmonary embolism. 2. Enlarged right hilar nodes are seen. Clinical correlation is recommended as these may be reactive or secondary to malignancy. 3. Multifocal groundglass nodules may represent infectious/inflammatory process. Nodular densities are seen measuring up to 13 mm. Short-term follow-up is recommended to ensure resolution. ACT 112: Negative or not required by law. Electronically signed by: Andrey Campuzano M.D. 04/08/2022 12:27 PM Hospital Course (1) COPD exacerbation: Duonebs QID + q2h PRN Solu-medrol 125mg IV given in ER continue 40mg IV BID Continued on doxycycline 100mg PO BID, given no definitive consolidation and negative procalcitonin will discontinue ceftriaxone Continue his routine Symbicort and Spiriva or hospital formulary equivalent Incentive spirometer, flutter valve Pt on room air with acceptable saturations Anxious and requesting discharge but is asking for a new Ventolin inhaler since he used up all of his and is not eligible for refill for another 2 weeks Will plan to dc on tapering course of Prednisone and Doxycycline 100mg BID x 5 more days Called pharmacy inhouse and they will send up a Ventolin HFA inhaler, instructed pt to use only as needed for SOB/Wheezing Tobacco use cessation STRONGLY encouraged Believe he would benefit from a f/u with pulmonology, referral placed, needs updated PFTs in order to maximize medical therapy and reduce exacerbations (2) Abnormal CT scan, chest: Recommend short term 4-[address] with IV contrast (3) Hyponatremia: This appears to be long standing, suspect related to poor nutritional intake. Stable at 134 this AM (4) Nicotine dependence: Declining nicotine replacement products at this time Again, reiterated importance of tobacco cessation (5) Hypertension: Monitor. Suspect acutely up from respiratory distress, hydralazine ordered by ER physician discontinued and not given. (6) Seizure disorder: Continue phenytoin 300mg PO BID At this time, given his poor air exchange, would not say he is medically optimized, but this may very well represent his baseline. Pt is adamant that he is going to stop smoking and is requesting to be discharged. He understands that the risks can include worsening respiratory status/increased shortness of breath and if not treated promptly could lead to respiratory failure and even . Strongly encouraged him to stop smoking to prevent further lung damage. Referral placed to pulmonology for him to follow up. Would advise f/u CT chest in 4-6 weeks to ensure that the multifocal nodules have resolved. Provided a Ventolin inhaler per his request. He would probably also benefit from nebulizer machine. Would discuss this with his primary care provider. Complete taper of steroids and antibiotics as written. F/u with pcp within 1 week of discharge. Plan of care has been d/w Dr. Arevalo who has also seen and evaluated this patient. Total Time Total Time Spent Total Time Spent (In Minutes): <30 minutes Discharge Plan Discharge Items Patient Disposition: Home - Self-Care Reason For Visit: COPD EXACERBATION Discharge Diagnosis: Exacerbation of lung disease due to smoking Activity: Resume your previous activity Non-emergency contact: Primary Care Provider Call non-emergency contact if: you have any medication questions Follow-up/Referrals: Noemy Arroyo CRNP [Primary Care Provider] - Jackson Richardson MD [Physician] - (COPD-new patient, needs PFTs) Diet: Regular Addtl Attending Provider Instructions: You were hospitalized due to exacerbation of your lung disease which has been brought on by years of smoking. You were treated with antibiotics, breathing treatments, oxygen, and inhalers. Ultimately, you will need to STOP SMOKING in order to prevent any further damage to your lungs. For now, we will send you home with the following new prescriptions: 1. Doxycycline 100mg BID x 6 days- start this evening (take around 8pm, at least 1 hour before laying down to sleep). DO NOT take with milk or calcium products. 2. Prednisone 40mg daily x3 days, 30mg daily x3 days, 20mg daily x3 days, 10mg daily x3 days then stop. START this tomorrow morning (04/10), take with food. 3. Protonix 40mg. Take this once a day, first thing in the morning, 30 minutes before eating/drinking. Please be sure to use your Symbicort and Spiriva EVERY DAY. The Ventolin (Albuterol) inhaler is only to be used if you are having increased shortness of breath or wheezing. If the Albuterol does not improve these symptoms, it is important that you seek care promptly with your family healthcare provider or go to the emergency room. You would benefit from lung function tests. These can be ordered by your primary care provider or I would recommend a referral to a mold forms builder who can assist in optimizing your medical therapy. You would also benefit from a nebulizer machine which would allow you to be able to do breathing treatments at home as needed. You can discuss this with your primary care provider at your follow up appointment. Lastly, you will need a follow up CT scan of your chest in 4-6 weeks to follow up with multifocal groundglass nodules to ensure resolution. We advise follow up with your family healthcare provider within 1 week of discharge. If you have any questions/concerns after you are discharged, you can call the nonemergency number listed on your discharge paperwork. In the event of a medical emergency, call 911. Pending Studies at Discharge: No Stand-Alone Forms: [facility] Intra-Cellular Therapies, Smoking Cessation Medications and DC Order Prescriptions: New doxycycline hyclate 100 mg Capsule 100 mg PO BID Qty: 11 RF: 0 prednisone 10 mg tablet 10 mg PO DAILY Qty: 30 RF: 0 pantoprazole [Protonix] 40 mg tablet,delayed release (DR/EC) 40 mg PO DAILY Qty: 30 RF: 0 Continued folic acid 1 mg tablet 1 mg PO DAILY Qty: 90 RF: 3 phenytoin sodium extended 100 mg capsule 300 mg PO BID Qty: 180 RF: 5 budesonide-formoterol [Symbicort] 160-4.5 mcg/actuation HFA aerosol inhaler 2 puff INH BID Qty: 10.2 RF: 5 sildenafil 50 mg tablet 50 mg PO DAILY PRN (Reason: sexual activity) Qty: 20 RF: 12 aspirin 81 mg tablet,delayed release (DR/EC) 81 mg PO HS Qty: 30 RF: 0 Spiriva Respimat 2.5 mcg/actuation mist 5 mcg INHALATION DAILY RF: 0 naproxen sodium [Aleve] 220 mg Tablet 220 mg PO Q12H PRN (Reason: Pain) RF: 0 albuterol sulfate [Ventolin HFA] 90 mcg/actuation HFA aerosol inhaler 2 puff inhalation Q4H PRN (Reason: shortness of breath or wheezing) Qty: 18 RF: 5 Discharge Orders: Discharge Order (Routine); Ordered 04/09/22 Ordered By: Mela Buck/Other Patient Handouts: Quit Smoking Aids Help Kick Habit, COPD Using Inhalers, COPD: Chronic Coughing, COPD: Wheezing and Chest Tightness, What Is COPD, COPD Quit Smoking, Smoking Get Help to Quit, Staying Smoke-Free, Pursed- Lip Breathing, Treatment for COPD Admission Data Admit Date/Time: 04/08/22 14:07 Attending Provider: Bao Arevalo Admit Provider: Archie Gomez Primary Care Provider: Noemy Arroyo Other Interventions: Discharge Summary Assessment (RN) Last Done: 04/09/22 14:39 Supervising Physician Co-Signing Physician Notes Patient seen and examined, chart reviewed, case discussed with Lesai Miller PA-C and I agree with the assessment and plan as above except as otherwise noted Patient is a 66-year-old male who presented for an acute on chronic COPD exacerbation. Clinically improved, stable for discharge. Patient was seen prior to discharge and tobacco cessation counseling provided. Patient does express concern over the cost of albuterol, notes all his other inhalers are covered. Was attempting to see if inhaler could be provided prior to discharge, however patient did walk out of the hospital of his own accord prior to this leonel ng provided to him and final medication review/counseling. At bedside assessment patient did have scattered trace wheezes in his lower lung bean. Heart rate was regular. No extremity swelling. Coding Level of Care Code 19396 OBS Care - Discharge Diagnoses COPD exacerbation J44.[address] scan, chest R93.89 Hyponatremia E87.1 Nicotine dependence F17.200 Hypertension I10 Seizure disorder G40.909
== END 2022-04-09 14:40 | disposition home or self-care (01) ==
LOC: ED 09:51 → 3N 09:51 → SUATTDRO 14:07 → 3N 15:03

== ENCOUNTER 2023-02-25 20:15 | Inpatient (IN) ==
[2023-02-25] MEDS ORDERED: ALBUT/IPRATROP 3MG/0.5MG NEB 3 ML VIAL INH STA (20:27)
[2023-02-25] MEDS ORDERED: methylPREDNISolone 125 MG/2 ML VIAL IV STA (20:27)
[2023-02-25 20:34] LABS: Basophils # (auto) 0.05 K/uL (0-0.2); Basophils % (auto) 0.3 %; Hematocrit (blood only) 43.9 % (42.0-52.0); Hemoglobin 15.2 g/dl (14.0-18.0); Immature Granulocytes # (auto) 0.06 K/uL (0.01-0.20); Immature Granulocytes % (auto) 0.3 %; Lymphocytes # (auto) 1.11 K/uL (1.2-3.4); Lymphocytes % (auto) 6.1 %; Mean Corpuscular Hgb Conc 34.6 g/dL (32.0-36.0); Mean Corpuscular Volume 89.4 fL (80.0-100.0); Mean Platelet Volume 9.8 fL (9.4-12.4); Monocytes # (auto) 0.91 K/uL (0.11-0.59); Neutrophils # (auto) 16.09 K/uL (1.40-6.50); Neutrophils % (auto) 88.3 %; Platelet Count 204 K/uL (130-400); RDW Coefficient of Variation 13.2 % (11.5-14.5); RDW Standard Deviation 43.3 fL (36.4-46.3); Red Blood Count 4.91 M/uL (4.70-6.10); White Blood Count 18.22 K/ul (4.8-10.8)
--- NOTE | 2023-02-25 20:40 | Emergency Department Note ---
Impression & Plan Acute exacerbation of chronic obstructive pulmonary disease (COPD) ADMIT ED Provider Note HPI: The patient is a 67-year-old gentleman with history of longstanding smoking, COPD, presents emergency department with a chief complaint of worsening shortness of breath over the past week. On arrival here to the ED the patient was noted to be in respiratory distress with tachypnea into the 50s, I was called to the room as respiratory therapy was placed on BiPAP on the patient. He is noted to have oxygen saturations at 100% on my initial assessment on BiPAP. States he does feel that his work of breathing is improving. Patient notes he was here in the ED on 02/22, placed on a course of prednisone and ultimately discharged home with COPD exacerbation. Patient states his symptoms have been worsening since then. On arrival here to the ED patient is stable with oxygen saturations at 100% now on BiPAP, blood pressure stable, patient is not tachycardic, patient does have a presenting temperature of 38 C. ROS: - Per HPI *Outpatient medications and allergy history reviewed. *Pertinent external medical records reviewed. PE: General: Alert HEENT: Normocephalic, trachea midline Eyes: Extraocular eye movement is intact, no scleral erythema Pulmonary: diminished bilateral breath sounds with tachypnea, mild expiratory wheezing bilaterally Cardio: Regular rate and rhythm GI: Abdomen is soft to palpation : No suprapubic tenderness MSK: No evidence of trauma or malformation of the extremities, no edema Skin: No evidence of rash Neuro: Alert, no focal deficits Psychiatric: Cooperative manager monitoring: (As interpreted by myself): - An order was placed for continuous cardiac monitoring - Patient was noted to be in sinus rhythm with rate of 80 EKG: (As interpreted by myself): Rate: 91 Rhythm: Normal sinus rhythm Intervals: Within normal limits ST changes: No ST elevation Time: 2028 Interventions provided in ED: -DuoNeb breathing treatment, IV Solu-Medrol, IV ceftriaxone, IV azithromycin Differential Diagnosis: Acute COPD exacerbation with hypoxia, CHF exacerbation, viral upper respiratory infection, bacterial pneumonia, hyperca rbic respiratory failure, amongst other potential pathologies. Medical Decision Making: Patient presented to the emergency department in respiratory distress, has longstanding history of smoking and COPD. Does not normally wear home oxygen. Per EMS report patient was hypoxic in the field and placed on nonrebreather mask with improvement in oxygen saturations however he remained with tachypnea and increased work of breathing on arrival. He was switched to BiPAP shortly after he arrived with good improvement in his work of breathing and oxygen saturations remained in the high 90s. IV was established and lab work obtained, patient was maintained on quality assurance monitor body, lab work shows a leukocytosis of 18.2, slight neutrophilic shift as well, patient is noted to be on steroid therapy as an outpatient, blood cultures were ordered, VBG shows mild acidosis with pH of 7.34, PCO2 mildly elevated at 54, CMP does not show any critical findings, troponin is negative, EKG does not show any acute ischemic changes. Procalcitonin slightly elevated at 1.98. Per my interpretation chest x-ray shows questionable infiltrate in the right lower lobe. Given the patient's lab work findings and respiratory symptoms he was covered prophylactically with ceftriaxone and azithromycin. His blood pressure remained stable and therefore he was not ordered IV fluids. On my reassessment following DuoNeb breathing treatment and IV Solu-Medrol as well as course of BiPAP therapy patient states breathing feels much improved. He was weaned to 5 L nasal cannula oxygen and remained stable on my reassessme nt. Given the patient's presenting symptoms and oxygen requirement, case was discussed with the on-call hospitalist, Dr. Nelson, patient was placed for admission in stable condition. Consultants: -Hospitalist, Dr. Nelson Disposition discussion held by myself with: -Patient * CRITICAL CARE TIME: ( 48 ) minutes -Stabilization of hypoxia with oxygen saturations less than 90% on room air in the field requiring nonrebreather mask and eventually positive pressure ventilation for increased work of breathing and hypoxia, initiation of nebulizer breathing treatments and IV steroids, time spent at the bedside, interpretation of EKG and diagnostic studies including chest x-ray, discussion with other physicians and arrangement of admission Diagnosis: 1. Hypoxia, acute 2. COPD exacerbation, acute 3. Pneumonia, right lower lobe, acute 4. Leukocytosis, acute 5. Hypercarbic respiratory failure, acute 6. Elevated procalcitonin level, acute Disposition: Admission Elvis Craig DO Emergency Medicine Past Med/Surg History Medical History (Updated 02/25/23 @ 23:02 by Elvis Craig DO) Fracture, carpal bone Surgical History Thrombophlebitis Tonsillectomy planned Family History Other Adopted Family history unknown Social History Smoking Status: Current some day smoker Tobacco Type: Cigarettes Age Started Using Tobacco: 18; packs per day: 0.25; Cigarettes Per Day: .25-2ppd; Second Hand Exposure: No; Do You Dip or Chew Tobacco: No; Hx Alcohol Use: Yes Alcohol type: beer Hx Substance Use: No Preferred Language: Estonian Communication Ability: Effective Visual Impairment: No Limitations Hearing Ability: Normal Livestock Inspector Required: No Beliefs That Will Affect Care: None marital status: Single Current Living Situation: Alone and Other current occupational status: retired Feels Safe at Home: Yes Childhood Exposure to Second-Hand Smoke: Yes Diet: regular Diet Comment: Doesn't eat after 8 PM caffeine: Yes during the past year weight has: remained stable Dental Care, Regularly: No Physical Activity Frequency: 1-2 Times per Week Physical Activity Frequency Comment: weight lifting 60minutes Seatbelt Use: always Sunscreen Use: No Assistive Devices: None and Glasses Allergies Allergies Allergy/AdvReac Type Severity Reaction Status Date / Time phenobarbital AdvReac Severe MIGRAINE/SEVERE Verified 02/25/23 21:38 PAIN Home Meds Home Medications Medication Instructions Recorded Confirmed aspirin 81 mg tablet,delayed 81 mg PO HS #30 tabs 07/13/19 02/25/23 release naproxen sodium 220 mg tablet 220 mg PO Q12H PRN Pain 04/08/22 02/25/23 (Aleve) Previous Rx's Medication Instructions Recorded sildenafil 50 mg tablet 50 mg PO DAILY PRN sexual activity 02/12/22 #20 tabs budesonide-formoterol HFA 160 2 puff inhalation BID #10.2 grams 02/26/22 mcg-4.5 mcg/actuation aerosol inhaler (Symbicort) ipratropium 0.5 mg-albuterol 3 mg 3 ml inhalation QID PRN wheezing 04/23/22 (2.5 mg base)/3 mL nebulization #180 mL soln tiotropium bromide 2.5 5 mcg inhalation DAILY #4 grams 04/23/22 mcg/actuation mist for inhalation (Spiriva Respimat) fluticasone fur. 200 mcg-umeclid 1 inh inhalation DAILY #60 ea 07/18/22 62.5 mcg-vilant 25 mcg inhalat.powder (Trelegy Ellipta) albuterol sulfate 90 mcg/actuation 2 puff inhalation Q4H PRN 11/02/22 aerosol inhaler (Ventolin HFA) shortness of breath or wheezing #18 grams folic acid 1 mg tablet 1 mg PO DAILY #90 tabs 12/14/22 phenytoin sodium extended 100 mg 300 mg PO BID #180 caps 01/07/23 capsule prednisone 50 mg tablet 50 mg PO DAILY 5 days #5 tabs 02/23/23 Results & Data (ED) Vital Signs Vital Signs - 24 hr 02/25/23 20:37 02/25/23 20:39 02/25/23 20:36 Temperature 38 C H Temperature Source Oral Pulse Rate 90 91 H Pulse Rate [Finger] 92 H Pulse Rate from SpO2 Sensor Respiratory Rate 32 H 36 H 38 H Respiratory Effort / Characteristics Spontaneous Grunting Labored Short of Breath Spontaneous Grunting Labored Moaning Short of Breath Labored Respiratory Depth Deep Retractive Respiratory Pattern Tachypnea Tachypnea Blood Pressure 178/111 H Blood Pressure Mean 133 Blood Pressure Position Sitting Pulse Oximetry 100 100 96 Oxygen Delivery Method BiPAP Non-rebreather Oxygen Flow Rate 15 Fraction of Inspired Oxygen 40 40 Sepsis Recent Fever Within 48 Hours No Sepsis New/Unexplained Change in Mental Status No Sepsis Action Taken by Nursing No Action Required 02/25/23 20:36 02/25/23 20:36 02/25/23 20:36 Temperature Temperature Source Pulse Rate 91 H 89 Pulse Rate [Finger] Pulse Rate from SpO2 Sensor Respiratory Rate 38 H Respiratory Effort / Characteristics Labored Moaning Short of Breath Respiratory Depth Shallow Respiratory Pattern Tachypnea Blood Pressure Blood Pressure Mean Blood Pressure Position Pulse Oximetry 96 Oxygen Delivery Method Non-rebreather Non-rebreather Oxygen Flow Rate 15 15 Fraction of Inspired Oxygen Sepsis Recent Fever Within 48 Hours Sepsis New/Unexplained Change in Mental Status Sepsis Action Taken by Nursing 02/25/23 20:36 02/25/23 21:00 02/25/23 21:30 Temperature Temperature Source Pulse Rate 89 85 80 Pulse Rate [Finger] Pulse Rate from SpO2 Sensor 89 85 82 Respiratory Rate 28 H 24 20 Respiratory Effort / Characteristics Respiratory Depth Respiratory Pattern Blood Pressure 127/74 Blood Pressure Mean 91 Blood Pressure Position Pulse Oximetry 100 100 100 Oxygen Delivery Method BiPAP Oxygen Flow Rate Fraction of Inspired Oxygen Sepsis Recent Fever Within 48 Hours Sepsis New/Unexplained Change in Mental Status Sepsis Action Taken by Nursing 02/25/23 21:43 02/25/23 23:20 Temperature Temperature Source Pulse Rate 70 Pulse Rate [Finger] Pulse Rate from SpO2 Sensor Respiratory Rate 22 Respiratory Effort / Characteristics Respiratory Depth Respiratory Pattern Blood Pressure Blood Pressure Mean Blood Pressure Position Pulse Oximetry 100 Oxygen Delivery Method BiPAP Oxygen Flow Rate Fraction of Inspired Oxygen 40 40 Sepsis Recent Fever Within 48 Hours Sepsis New/Unexplained Change in Mental Status Sepsis Action Taken by Nursing Laboratory Data 02/25/23 20:15 02/25/23 20:15 Lab Results 02/25/23 02/25/23 02/25/23 Range/Units 20:15 20:15 20:15 WBC 18.22 H (4.8-10.8) K/ul RBC 4.91 (4.70-6.10) M/uL Hgb 15.2 (14.0-18.0) g/dl Hct 43.9 (42.0-52.0) % MCV 89.4 (80.0-100.0) fL MCH 31.0 (25.0-34.0) pg MCHC 34.6 (32.0-36.0) g/dL RDW Std Deviation 43.3 (36.4-46.3) fL RDW Coeff of Tammi 13.2 (11.5-14.5) % Plt Count 204 (130-400) K/uL MPV 9.8 (9.4-12.4) fL Immature Gran % (Auto) 0.3 % Neut % (Auto) 88.3 % Lymph % (Auto) 6.1 % Jones % (Auto) 5.0 % Eos % (Auto) 0.0 % Baso % (Auto) 0.3 % Neut # (Auto) 16.09 H (1.40-6.50) K/uL Lymph # (Auto) 1.11 L (1.2-3.4) K/uL Jones # (Auto) 0.91 H (0.11-0.59) K/uL Eos # (Auto) 0.00 (0-0.50) K/uL Baso # (Auto) 0.05 (0-0.2) K/uL Immature Gran # (Auto) 0.06 (0.01-0.20) K/uL PT Cancelled INR Cancelled APTT Cancelled PTT Ratio Cancelled VBG pH (7.36-7.41) VBG pCO2 (38-50) mmHg VBG pO2 mmHg VBG HCO3 mmol/L VBG O2 Saturation % VBG Base Excess mEq/L Sodium 132 L (136-145) mmol/L Potassium 3.8 (3.5-5.1) mmol/L Chloride 96 L (98-107) mmol/L Carbon Dioxide 26 (21-32) mmol/L Anion Gap 10 (3-11) BUN 20 (6-23) mg/dl Creatinine 1.02 (0.6-1.4) mg/dl Est Cr Clr Drug Dosing 74.9 ml/min Est GFR ( Amer) 86.5 ml/min Est GFR (Non-Af Amer) 74.6 ml/min BUN/Creatinine Ratio 19.6 (10-20) Glucose 211 H (70-99(Fasting)) mg/dl Calcium 8.6 (8.6-10.3) mg/dl Total Bilirubin 0.5 (0.2-1.0) mg/dl AST 31 (13-39) U/L ALT 30 (7-52) U/L Alkaline Phosphatase 109 H (34-104) U/L Troponin I High Sens 7.3 (0-20) pg/ml B-Natriuretic Peptide (0-100) pg/ml Total Protein 7.5 (6.0-8.3) gm/dl Albumin 4.3 (3.4-5.0) gm/dl Globulin 3.2 (2.5-4.0) gm/dl Albumin/Globulin Ratio 1.3 (0.9-2) Procalcitonin (0-0.5) ng/ml Adenovirus (PCR) (NotDetected) B. pertussis DNA (PCR) (NotDetected) B.parapertussis DNA PCR (NotDetected) C. pneumoniae DNA (PCR) (NotDetected) Coronavirus OC43 (PCR) (NotDetected) Coronavirus HKU1 (PCR) (NotDetected) Coronavirus 229E (PCR) (NotDetected) SARS-CoV-2 (PCR) (NotDetected) Coronavirus NL63 (PCR) (NotDetected) Human Metapneumovir PCR (NotDetected) Influenza Type A (PCR) (NotDetected) Influenza Type B (PCR) (NotDetected) M. pneumoniae (PCR) (NotDetected) Parainfluenza 1 (PCR) (NotDetected) Parainfluenza 2 (PCR) (NotDetected) Parainfluenza 3 (PCR) (NotDetected) Parainfluenza 4 (PCR) (NotDetected) RSV (PCR) (NotDetected) Entero/Rhino (PCR) (NotDetected) 02/25/23 02/25/23 02/25/23 Range/Units 20:15 20:15 21:06 WBC (4.8-10.8) K/ul RBC (4.70-6.10) M/uL Hgb (14.0-18.0) g/dl Hct (42.0-52.0) % MCV (80.0-100.0) fL MCH (25.0-34.0) pg MCHC (32.0-36.0) g/dL RDW Std Deviation (36.4-46.3) fL RDW Coeff of Tammi (11.5-14.5) % Plt Count (130-400) K/uL MPV (9.4-12.4) fL Immature Gran % (Auto) % Neut % (Auto) % Lymph % (Auto) % Jones % (Auto) % Eos % (Auto) % Baso % (Auto) % Neut # (Auto) (1.40-6.50) K/uL Lymph # (Auto) (1.2-3.4) K/uL Jones # (Auto) (0.11-0.59) K/uL Eos # (Auto) (0-0.50) K/uL Baso # (Auto) (0-0.2) K/uL Immature Gran # (Auto) (0.01-0.20) K/uL PT INR APTT PTT Ratio VBG pH 7.34 L (7.36-7.41) VBG pCO2 54 H (38-50) mmHg VBG pO2 36 mmHg VBG HCO3 29 mmol/L VBG O2 Saturation < 60.0 % VBG Base Excess 2.2 mEq/L Sodium (136-145) mmol/L Potassium (3.5-5.1) mmol/L Chloride (98-107) mmol/L Carbon Dioxide (21-32) mmol/L Anion Gap (3-11) BUN (6-23) mg/dl Creatinine (0.6-1.4) mg/dl Est Cr Clr Drug Dosing ml/min Est GFR ( Amer) ml/min Est GFR (Non-Af Amer) ml/min BUN/Creatinine Ratio (10-20) Glucose (70-99(Fasting)) mg/dl Calcium (8.6-10.3) mg/dl Total Bilirubin (0.2-1.0) mg/dl AST (13-39) U/L ALT (7-52) U/L Alkaline Phosphatase (34-104) U/L Troponin I High Sens (0-20) pg/ml B-Natriuretic Peptide 127 H (0-100) pg/ml Total Protein (6.0-8.3) gm/dl Albumin (3.4-5.0) gm/dl Globulin (2.5-4.0) gm/dl Albumin/Globulin Ratio (0.9-2) Procalcitonin 1.98 H (0-0.5) ng/ml Adenovirus (PCR) (NotDetected) B. pertussis DNA (PCR) (NotDetected) B.parapertussis DNA PCR (NotDetected) C. pneumoniae DNA (PCR) (NotDetected) Coronavirus OC43 (PCR) (NotDetected) Coronavirus HKU1 (PCR) (NotDetected) Coronavirus 229E (PCR) (NotDetected) SARS-CoV-2 (PCR) (NotDetected) Coronavirus NL63 (PCR) (NotDetected) Human Metapneumovir PCR (NotDetected) Influenza Type A (PCR) (NotDetected) Influenza Type B (PCR) (NotDetected) M. pneumoniae (PCR) (NotDetected) Parainfluenza 1 (PCR) (NotDetected) Parainfluenza 2 (PCR) (NotDetected) Parainfluenza 3 (PCR) (NotDetected) Parainfluenza 4 (PCR) (NotDetected) RSV (PCR) (NotDetected) Entero/Rhino (PCR) (NotDetected) 02/25/23 02/25/23 Range/Units 21:06 21:25 WBC (4.8-10.8) K/ul RBC (4.70-6.10) M/uL Hgb (14.0-18.0) g/dl Hct (42.0-52.0) % MCV (80.0-100.0) fL MCH (25.0-34.0) pg MCHC (32.0-36.0) g/dL RDW Std Deviation (36.4-46.3) fL RDW Coeff of Tammi (11.5-14.5) % Plt Count (130-400) K/uL MPV (9.4-12.4) fL Immature Gran % (Auto) % Neut % (Auto) % Lymph % (Auto) % Jones % (Auto) % Eos % (Auto) % Baso % (Auto) % Neut # (Auto) (1.40-6.50) K/uL Lymph # (Auto) (1.2-3.4) K/uL Jones # (Auto) (0.11-0.59) K/uL Eos # (Auto) (0-0.50) K/uL Baso # (Auto) (0-0.2) K/uL Immature Gran # (Auto) (0.01-0.20) K/uL PT 12.2 H INR 1.1 APTT 37.8 H PTT Ratio 1.3 VBG pH (7.36-7.41) VBG pCO2 (38-50) mmHg VBG pO2 mmHg VBG HCO3 mmol/L VBG O2 Saturation % VBG Base Excess mEq/L Sodium (136-145) mmol/L Potassium (3.5-5.1) mmol/L Chloride (98-107) mmol/L Carbon Dioxide (21-32) mmol/L Anion Gap (3-11) BUN (6-23) mg/dl Creatinine (0.6-1.4) mg/dl Est Cr Clr Drug Dosing ml/min Est GFR ( Amer) ml/min Est GFR (Non-Af Amer) ml/min BUN/Creatinine Ratio (10-20) Glucose (70-99(Fasting)) mg/dl Calcium (8.6-10.3) mg/dl Total Bilirubin (0.2-1.0) mg/dl AST (13-39) U/L ALT (7-52) U/L Alkaline Phosphatase (34-104) U/L Troponin I High Sens (0-20) pg/ml B-Natriuretic Peptide (0-100) pg/ml Total Protein (6.0-8.3) gm/dl Albumin (3.4-5.0) gm/dl Globulin (2.5-4.0) gm/dl Albumin/Globulin Ratio (0.9-2) Procalcitonin (0-0.5) ng/ml Adenovirus (PCR) Not Detected (NotDetected) B. pertussis DNA (PCR) Not Detected (NotDetected) B.parapertussis DNA PCR Not Detected (NotDetected) C. pneumoniae DNA (PCR) Not Detected (NotDetected) Coronavirus OC43 (PCR) Not Detected (NotDetected) Coronavirus HKU1 (PCR) Not Detected (NotDetected) Coronavirus 229E (PCR) Not Detected (NotDetected) SARS-CoV-2 (PCR) Not Detected (NotDetected) Coronavirus NL63 (PCR) Not Detected (NotDetected) Human Metapneumovir PCR DETECTED A* (NotDetected) Influenza Type A (PCR) Not Detected (NotDetected) Influenza Type B (PCR) Not Detected (NotDetected) M. pneumoniae (PCR) Not Detected (NotDetected) Parainfluenza 1 (PCR) Not Detected (NotDetected) Parainfluenza 2 (PCR) Not Detected (NotDetected) Parainfluenza 3 (PCR) Not Detected (NotDetected) Parainfluenza 4 (PCR) Not Detected (NotDetected) RSV (PCR) Not Detected (NotDetected) Entero/Rhino (PCR) Not Detected (NotDetected) Administered Medications Azithromycin 500 mg/ Dextrose 255 mls @ 125 mls/hr IV ONE ONE Stop: 02/26/23 00:50 Last Admin: 02/25/23 23:38 Dose: 125 mls/hr Documented By: BAOW Discontinued Medications Albuterol (Albut/Ipratrop 3mg/0.5mg Neb 3 Ml Vial) 3 ml INH NOW STA Stop: 02/25/23 20:28 Last Admin: 02/25/23 20:35 Dose: 3 ml Documented By: ANNE Albuterol (Albut/Ipratrop 3mg/0.5mg Neb 3 Ml Vial) 3 ml NEB NOW STA; Protocol Stop: 02/25/23 23:18 Last Admin: 02/25/23 23:21 Dose: 3 ml Documented By: ROBEL Ceftriaxone Sodium 1,000 mg/ (Dextrose) 50 mls @ 100 mls/hr IV NOW STA Stop: 02/25/23 23:17 Last Infusion: 02/25/23 23:37 Dose: 0 mls/hr Documented By: Admin: 02/25/23 23:07 Dose: 100 mls/hr Documented By: ROBEL Methylprednisolone (Methylprednisolone 125 Mg/2 Ml Vial) 125 mg IV NOW STA Stop: 02/25/23 20:28 Last Admin: 02/25/23 20:40 Dose: 125 mg Documented By: JESÚS Discharge Plan Visit Data Chief Complaint: Shortness of Breath/Dyspnea Stated Complaint: SHORTNESS OF BREATH ED Provider: Elvis Craig Discharge Problem: Acute exacerbation of chronic obstructive pulmonary disease (COPD) Discharge Instructions Interventions: ED Discharge Assessment Last Done: 02/25/23 23:58
[2023-02-25 20:55] LABS: Albumin Globulin Ratio 1.3 (0.9-2); Albumin Level 4.3 gm/dl (3.4-5.0); BUN Creatinine Ratio 19.6 (10-20); Bilirubin,Total 0.5 mg/dl (0.2-1.0); Calcium 8.6 mg/dl (8.6-10.3); Creatinine Clr Calc Pharmacy 74.9 ml/min; Est GFR (African American) 86.5 ml/min; Est GFR (Non-African American) 74.6 ml/min; Globulin 3.2 gm/dl (2.5-4.0); Potassium 3.8 mmol/L (3.5-5.1); Total Protein 7.5 gm/dl (6.0-8.3)
[2023-02-25 21:01] LABS: Troponin I High Sensitivity 7.3 pg/ml (0-20)
[2023-02-25 21:18] LABS: Base Excess VBG 2.2 mEq/L; HCO3 VBG 29 mmol/L; Oxygen Saturation VBG < 60.0 %; PCO2 VBG 54 mmHg (38-50); PO2 VBG 36 mmHg; pH VBG 7.34 (7.36-7.41)
[2023-02-25 22:02] LABS: INR 1.1 (0.9-1.1); Partial Thromboplastin Ratio 1.3; Partial Thromboplastin Time 37.8 Seconds (21.0-31.0); Prothrombin Time 12.2 Seconds (9.0-12.0)
[2023-02-25 22:42] LABS: Adenovirus PCR Not Detected (NotDetected); Bordetella parapertussis PCR Not Detected (NotDetected); Bordetella pertussis PCR Not Detected (NotDetected); Chlamydia pneumoniae PCR Not Detected (NotDetected); Coronavirus 229E PCR Not Detected (NotDetected); Coronavirus CoV-2 (COVID19)PCR Not Detected (NotDetected); Coronavirus HKU1 PCR Not Detected (NotDetected); Coronavirus NL63 PCR Not Detected (NotDetected); Coronavirus OC43PCR Not Detected (NotDetected); Influenza A PCR Not Detected (NotDetected); Influenza B PCR Not Detected (NotDetected); Mycoplasma pneumoniae PCR Not Detected (NotDetected); Parainfluenza Virus 1 PCR Not Detected (NotDetected); Parainfluenza Virus 2 PCR Not Detected (NotDetected); Parainfluenza Virus 3 PCR Not Detected (NotDetected); Parainfluenza Virus 4 PCR Not Detected (NotDetected); Respiratory Syncytial VirusPCR Not Detected (NotDetected); Rhinovirus/Enterovirus PCR Not Detected (NotDetected)
[2023-02-25 22:45] LABS: Human Metapneumovirus PCR DETECTED (NotDetected)
[2023-02-25] MEDS ORDERED: cefTRIAXone SODIUM 1,000 MG in DEXTROSE 5% AD-VAN 50 ML IV STA (22:48)
[2023-02-25] MEDS ORDERED: AZITHROMYCIN 500 MG in DEXTROSE 5% 250 ML IV ONE (22:48)
[2023-02-25] MEDS ORDERED: ALBUT/IPRATROP 3MG/0.5MG NEB 3 ML VIAL NEB STA (23:17)
--- NOTE | 2023-02-25 23:40 | History & Physical Report ---
Date of Service February 25, 2023 Assessment & Plan (1) Pneumonia: Plan: Acute hypoxic respiratory failure secondary to PNA and acute exacerbation of COPD. 67yo male with history of COPD/Empysema presenting with one week of progressive dyspnea and cough productive for thick, yellow sputum. Labs are significant for marked leukocytosis with WBC=18.22 with neutrophil predominance and lymphopenia (recent steroid use), elevated procalcitonin=1.98 . Mild elevation of FMW=772 Respiratory Biofire panel POSITIVE for human metapneumovirus CXR suggestive of worsening airspace opacity RLL. -Admit to PCU -Follow cultures sent from ER -Continue antibiotic coverage given elevation of procalcitonin - Ceftriaxone and Azithromycin -Tylenol PRN -Maintain droplet isolation for human metapneumovirus -Supplemental O2 as needed to maintain saturation of 88-92% -BiPAP as needed for respiratory support (2) Acute exacerbation of chronic obstructive pulmonary disease (COPD): Plan: Suspect acute exacerbation of COPD secondary to pneumonia. Per chart review, patient is somewhat non-compliant with his medications. He last saw Pulmonary in May 2022. -Continue Trelegy or formulary equivalent -Flutter valve and IS -Smoking cessation counseling - strongly encourage to quit tobacco -DuoNebs q 4 hours -Albuterol q 2 hours PRN -Solumedrol 40mg IV TID -Consider Pulmonary consultation if patient fails to improve (3) Seizure disorder: Plan: Well controlled. Patient reports his last seizure was many years ago. He reports compliance with his Phenytoin - took his evening dose already. -Continue Phenytoin -Continue folic acid F/E/N - Heplock. Check Mg and PO4 x 1 and replete as needed, Heart healthy diet as tolerated Ppx - Lovenox Code - Full per discussion with patient Dispo - Admit to PCU for continue management of acute hypoxic respiratory failrue History of Present Illness Chief Complaint: Cough, SOB Primary Care Provider: CL Rosario Nelson Collado is a 67yo male with COPD, current active tobacco use, HTN, HLP and Seizure disorder presenting with several days of progressive SOB. Patient reports progressive SOB x 1 week as well as cough productive for thick, yellow sputum. No hemoptysis. Also with generalized weakness and pain in his legs and knees, abdominal pain, wheezing and nausea. Patient was seen in the ER on 02/22/23 with complaints of mild URI symptoms. No respiratory distress at that time. No wheeze noted on exam. He was treated with IV solumedrol and DuoNeb and discharged home with a prescription for PO Prednisone 50mg po daily x 5 days. Patient reported to me that he did take his oral prednisone and he has been using his inhalers at home as well with very brief improvement in his symptoms. He does not use supplemental O2 at home. Patient called EMS due to worsening respiratory symptoms. Patient found to be tripod position by EMS with audible wheezing and accessory muscle use. Tachypneic with RR in the 40's and hypoxic to 87% on RA in the field. He was placed on 15L NRB and transported to [facility] ER. Upon arrival patient febrile Tm=38, HR=91, RR=38, labored with use of accessory muscles. SpO2 96% on 15L NRB. Patient was placed on BiPAP due to persistent tachypnea and increased work of breathing - 14/6 40% FiO2. Patient with no additional complaints at this time. He denies chest pain, palpitations, nausea, vomiting, abdominal pain, diarrhea. ER Course: Albuterol 3mL neb x 2 Solumedrol 125mg IV Ceftriaxone 1gm Azithromycin 500mg IV Allergies Allergy/AdvReac Type Severity Reaction Status Date / Time phenobarbital AdvReac Severe MIGRAINE/SEVERE Verified 02/25/23 21:38 PAIN Home Medications Medication Instructions Recorded Confirmed Type aspirin 81 mg tablet,delayed 81 mg PO HS #30 tabs 07/13/19 02/25/23 History release sildenafil 50 mg tablet 50 mg PO DAILY PRN sexual activity 02/12/22 02/25/23 Rx #20 tabs budesonide-formoterol HFA 160 2 puff inhalation BID #10.2 grams 02/26/22 02/25/23 Rx mcg-4.5 mcg/actuation aerosol inhaler (Symbicort) naproxen sodium 220 mg tablet 220 mg PO Q12H PRN Pain 04/08/22 02/25/23 History (Aleve) ipratropium 0.5 mg-albuterol 3 mg 3 ml inhalation QID PRN wheezing 04/23/22 02/25/23 Rx (2.5 mg base)/3 mL nebulization #180 mL soln tiotropium bromide 2.5 5 mcg inhalation DAILY #4 grams 04/23/22 02/25/23 Rx mcg/actuation mist for inhalation (Spiriva Respimat) fluticasone fur. 200 mcg-umeclid 1 inh inhalation DAILY #60 ea 07/18/22 02/25/23 Rx 62.5 mcg-vilant 25 mcg inhalat.powder (Trelegy Ellipta) albuterol sulfate 90 mcg/actuation 2 puff inhalation Q4H PRN 11/02/22 02/25/23 Rx aerosol inhaler (Ventolin HFA) shortness of breath or wheezing #18 grams folic acid 1 mg tablet 1 mg PO DAILY #90 tabs 12/14/22 02/25/23 Rx phenytoin sodium extended 100 mg 300 mg PO BID #180 caps 01/07/23 02/25/23 Rx capsule prednisone 50 mg tablet 50 mg PO DAILY 5 days #5 tabs 02/23/23 02/25/23 Rx Past Med/Surg History Medical History COPD with emphysema Depression Hypercholesterolemia Hypertension Seizure disorder Surgical History Thrombophlebitis Tonsillectomy planned Family History Other Adopted Family history unknown Social History Smoking Status: Light tobacco smoker Tobacco Type: Cigarettes Age Started Using Tobacco: 18; packs per day: 0.25; Cigarettes Per Day: .25-2ppd; Second Hand Exposure: No; Do You Dip or Chew Tobacco: No; Hx Alcohol Use: Yes Alcohol type: beer Hx Substance Use: No Preferred Language: Belarusian Communication Ability: Effective Visual Impairment: No Limitations Hearing Ability: Normal Restaurant Hostess Required: No Beliefs That Will Affect Care: None marital status: Single Current Living Situation: Alone current occupational status: retired Feels Safe at Home: Yes Childhood Exposure to Second-Hand Smoke: Yes Diet: regular Diet Comment: Doesn't eat after 8 PM caffeine: Yes during the past year weight has: remained stable Dental Care, Regularly: No Physical Activity Frequency: 1-2 Times per Week Physical Activity Frequency Comment: weight lifting 60minutes Seatbelt Use: always Sunscreen Use: No Assistive Devices: Denture - Upper and Glasses Review of Systems Review of Systems: All systems reviewed & are unremarkable except as noted in HPI & below Physical Exam Physical Exam: General: patient tachypneic, 5L NC in place, adequate saturations Skin: warm, dry, intact, no rashes or lesions, no cyanosis HEENT: NC/AT, PERRL, EOMI, anicteric sclera, conjunctiva without injection, external ear normal to inspection and nontender, nares patent, moist mucus membranes, dentition intact, no oropharyngeal lesions, neck supple, trachea midline, no LAD, no thyromegaly, no JVD Heart: +S1/S2, regular, no m/r/g Lungs: speaking in short sentences, pursed lip breathing, tachypneic, diminished breath sounds bilaterally, moist sounding cough, bag full of thick/yellow sputum in room Abd: +BS, soft, NT/ND, no masses/organomegaly/ascites Ext: warm, 2+ pulses in UE/LE bilaterally, no clubbing/cyanosis or trace bilateral LE edema Neuro: nonfocal, patient AA&O x 4, speech intact, no facial droop, moving all extremities on command with equal strength 5/5 Results & Data Results & Data Vital Signs (Past 12 Hours) Vital Signs Temp Pulse Pulse Resp BP Pulse Ox O2 Del Method 02/25/23 23:20 70 22 100 02/25/23 21:43 BiPAP 02/25/23 21:30 80 20 127/74 100 BiPAP 02/25/23 21:00 85 24 100 02/25/23 20:36 89 28 H 100 02/25/23 20:36 89 02/25/23 20:36 Non-rebreather 02/25/23 20:36 91 H 38 H 96 Non-rebreather 02/25/23 20:36 38 C H 91 H 38 H 178/111 H 96 Non-rebreather 02/25/23 20:39 92 H 36 H 100 BiPAP 02/25/23 20:37 90 32 H 100 O2 Flow Rate FiO2 02/25/23 23:20 40 02/25/23 21:43 40 02/25/23 21:30 02/25/23 21:00 02/25/23 20:36 02/25/23 20:36 02/25/23 20:36 15 02/25/23 20:36 15 02/25/23 20:36 15 02/25/23 20:39 40 02/25/23 20:37 40 Laboratory Results Laboratory Results WBC 18.22 K/ul (4.8-10.8) H 02/25/23 20:15 RBC 4.91 M/uL (4.70-6.10) 02/25/23 20:15 Hgb 15.2 g/dl (14.0-18.0) 02/25/23 20:15 Hct 43.9 % (42.0-52.0) 02/25/23 20:15 MCV 89.4 fL (80.0-100.0) 02/25/23 20:15 MCH 31.0 pg (25.0-34.0) 02/25/23 20:15 MCHC 34.6 g/dL (32.0-36.0) 02/25/23 20:15 RDW Std Deviation 43.3 fL (36.4-46.3) 02/25/23 20:15 RDW Coeff of Tammi 13.2 % (11.5-14.5) 02/25/23 20:15 Plt Count 204 K/uL (130-400) 02/25/23 20:15 MPV 9.8 fL (9.4-12.4) 02/25/23 20:15 Immature Gran % (Auto) 0.3 % 02/25/23 20:15 Neut % (Auto) 88.3 % 02/25/23 20:15 Lymph % (Auto) 6.1 % 02/25/23 20:15 Stephens % (Auto) 5.0 % 02/25/23 20:15 Eos % (Auto) 0.0 % 02/25/23 20:15 Baso % (Auto) 0.3 % 02/25/23 20:15 Neut # (Auto) 16.09 K/uL (1.40-6.50) H 02/25/23 20:15 Lymph # (Auto) 1.11 K/uL (1.2-3.4) L 02/25/23 20:15 Stephens # (Auto) 0.91 K/uL (0.11-0.59) H 02/25/23 20:15 Eos # (Auto) 0.00 K/uL (0-0.50) 02/25/23 20:15 Baso # (Auto) 0.05 K/uL (0-0.2) 02/25/23 20:15 Immature Gran # (Auto) 0.06 K/uL (0.01-0.20) 02/25/23 20:15 PT 12.2 Seconds (9.0-12.0) H 02/25/23 21:06 INR 1.1 (0.9-1.1) 02/25/23 21:06 APTT 37.8 Seconds (21.0-31.0) H 02/25/23 21:06 PTT Ratio 1.3 02/25/23 21:06 VBG pH 7.34 (7.36-7.41) L 02/25/23 21:06 VBG pCO2 54 mmHg (38-50) H 02/25/23 21:06 VBG pO2 36 mmHg 02/25/23 21:06 VBG HCO3 29 mmol/L 02/25/23 21:06 VBG O2 Saturation < 60.0 % 02/25/23 21:06 VBG Base Excess 2.2 mEq/L 02/25/23 21:06 Sodium 132 mmol/L (136-145) L 02/25/23 20:15 Potassium 3.8 mmol/L (3.5-5.1) 02/25/23 20:15 Chloride 96 mmol/L (98-107) L 02/25/23 20:15 Carbon Dioxide 26 mmol/L (21-32) 02/25/23 20:15 Anion Gap 10 (3-11) 02/25/23 20:15 BUN 20 mg/dl (6-23) 02/25/23 20:15 Creatinine 1.02 mg/dl (0.6-1.4) 02/25/23 20:15 Est Cr Clr Drug Dosing 74.9 ml/min 02/25/23 20:15 Est GFR ( Amer) 86.5 ml/min 02/25/23 20:15 Est GFR (Non-Af Amer) 74.6 ml/min 02/25/23 20:15 BUN/Creatinine Ratio 19.6 (10-20) 02/25/23 20:15 Glucose 211 mg/dl (70-99(Fasting)) H 02/25/23 20:15 Calcium 8.6 mg/dl (8.6-10.3) 02/25/23 20:15 Phosphorus 3.0 mg/dl (2.5-4.9) 02/25/23 20:15 Magnesium 1.9 mg/dl (1.7-2.4) 02/25/23 20:15 Total Bilirubin 0.5 mg/dl (0.2-1.0) 02/25/23 20:15 AST 31 U/L (13-39) 02/25/23 20:15 ALT 30 U/L (7-52) 02/25/23 20:15 Alkaline Phosphatase 109 U/L (34-104) H 02/25/23 20:15 Troponin I High Sens 7.3 pg/ml (0-20) 02/25/23 20:15 B-Natriuretic Peptide 127 pg/ml (0-100) H 02/25/23 20:15 Total Protein 7.5 gm/dl (6.0-8.3) 02/25/23 20:15 Albumin 4.3 gm/dl (3.4-5.0) 02/25/23 20:15 Globulin 3.2 gm/dl (2.5-4.0) 02/25/23 20:15 Albumin/Globulin Ratio 1.3 (0.9-2) 02/25/23 20:15 Procalcitonin 1.98 ng/ml (0-0.5) H 02/25/23 20:15 Adenovirus (PCR) Not Detected (NotDetected) 02/25/23 21:25 B. pertussis DNA (PCR) Not Detected (NotDetected) 02/25/23 21:25 B.parapertussis DNA PCR Not Detected (NotDetected) 02/25/23 21:25 C. pneumoniae DNA (PCR) Not Detected (NotDetected) 02/25/23 21:25 Coronavirus OC43 (PCR) Not Detected (NotDetected) 02/25/23 21:25 Coronavirus HKU1 (PCR) Not Detected (NotDetected) 02/25/23 21:25 Coronavirus 229E (PCR) Not Detected (NotDetected) 02/25/23 21:25 SARS-CoV-2 (PCR) Not Detected (NotDetected) 02/25/23 21:25 Coronavirus NL63 (PCR) Not Detected (NotDetected) 02/25/23 21:25 Human Metapneumovir PCR DETECTED (NotDetected) A* 02/25/23 21:25 Influenza Type A (PCR) Not Detected (NotDetected) 02/25/23 21:25 Influenza Type B (PCR) Not Detected (NotDetected) 02/25/23 21:25 M. pneumoniae (PCR) Not Detected (NotDetected) 02/25/23 21:25 Parainfluenza 1 (PCR) Not Detected (NotDetected) 02/25/23 21:25 Parainfluenza 2 (PCR) Not Detected (NotDetected) 02/25/23 21:25 Parainfluenza 3 (PCR) Not Detected (NotDetected) 02/25/23 21:25 Parainfluenza 4 (PCR) Not Detected (NotDetected) 02/25/23 21:25 RSV (PCR) Not Detected (NotDetected) 02/25/23 21:25 Entero/Rhino (PCR) Not Detected (NotDetected) 02/25/23 21:25 Diagnostic Findings CXR - per my interpretation - appears to have increase in bilateral airspace o pacity R > L when compared to prior CXR from 02/22/23. No PTX PG Care Time/CCT Total # of Minutes Spent Total Time Spent with Patient: Total time spent is greater than 50% in coordination of care (as documented) at patient's floor/unit and/or counseling patient: Coding Level of Care Code 91402 INT INP/OBS CARE 2/55MIN Diagnoses Pneumonia J18.9 Acute exacerbation of chronic obstructive pulmonary disease (COPD) J44.1 Seizure disorder G40.909
[2023-02-26] MEDS ORDERED: ALBUTEROL 0.083% NEBU SOLN 3 ML VIAL NEB PRN (00:39)
[2023-02-26] MEDS ORDERED: ACETAMINOPHEN 325 MG TAB PO PRN (00:39)
[2023-02-26 00:58] LABS: Magnesium 1.9 mg/dl (1.7-2.4)
[2023-02-26] MEDS: ALBUT/IPRATROP 3MG/0.5MG NEB 3 ML VIAL NEB SCH ×6 (02:14→22:22)
[2023-02-26 05:20] LABS: Hematocrit (blood only) 39.4 % (42.0-52.0); Hemoglobin 13.7 g/dl (14.0-18.0); Mean Corpuscular Hemoglobin 30.9 pg (25.0-34.0); Mean Corpuscular Hgb Conc 34.8 g/dL (32.0-36.0); Mean Corpuscular Volume 88.7 fL (80.0-100.0); Mean Platelet Volume 9.8 fL (9.4-12.4); Platelet Count 149 K/uL (130-400); RDW Coefficient of Variation 13.2 % (11.5-14.5); RDW Standard Deviation 42.8 fL (36.4-46.3); Red Blood Count 4.44 M/uL (4.70-6.10); White Blood Count 17.25 K/ul (4.8-10.8)
[2023-02-26 05:23] LABS: BUN Creatinine Ratio 21.8 (10-20); Calcium 8.7 mg/dl (8.6-10.3); Creatinine Clr Calc Pharmacy 82.4 ml/min; Est GFR (African American) 102.1 ml/min; Est GFR (Non-African American) 88.1 ml/min; Potassium 4.3 mmol/L (3.5-5.1)
--- NOTE | 2023-02-26 07:34 | Hospitalist Progress Note ---
Date of Service February 26, 2023 Assessment & Plan (1) Pneumonia: Plan: Acute hypoxic respiratory failure secondary to Human Metapneumovirus PNA and acute exacerbation of COPD. history of COPD/Empysema one week of progressive dyspnea and cough productive for thick, yellow sputum. -Continue antibiotic coverage given elevation of procalcitonin - Ceftriaxone and Azithromycin -Tylenol PRN -Maintain droplet isolation for human metapneumovirus -Supplemental O2 as needed to maintain saturation of 88-92% -BiPAP as needed for respiratory support (2) Acute exacerbation of chronic obstructive pulmonary disease (COPD): Plan: -Solumedrol 40mg IV TID -Continue Trelegy or formulary equivalent -DuoNebs q 4 hours -Albuterol q 2 hours PRN -Flutter valve and IS -Smoking cessation counseling - strongly encourage to quit tobacco (3) Seizure disorder: Plan: Well controlled. Patient reports his last seizure was many years ago. He reports compliance with his Phenytoin - took his evening dose already. -Continue Phenytoin -Continue folic acid Ppx - Lovenox Code - Full per discussion with patient Admission and Anticipated Discharge Date Admission Date: February 25, 2023 Subjective Patient is persistently short of breath requiring noninvasive positive pressure ventilation. He has end expiratory wheezes and some auto PEEP type breathing italo Physical Exam Physical Exam: While wearing BiPAP patient is reasonable air movement but off BiPAP he is got some end expiratory wheezes and accessory muscle use no focal air loss Results & Data Results & Data Vital Signs (Past 12 Hours) Vital Signs Temp Pulse Pulse Resp BP BP Pulse Ox 02/26/23 05:01 78 26 H 98 02/26/23 05:01 114/71 02/26/23 05:00 75 25 H 99 02/26/23 04:00 75 26 H 98 02/26/23 04:00 113/90 02/26/23 03:00 75 25 H 100 02/26/23 03:00 131/79 02/26/23 02:00 77 28 H 96 02/26/23 02:00 92/48 L 02/26/23 01:00 75 21 97 02/26/23 01:00 116/72 02/26/23 00:25 78 26 H 97 02/26/23 00:25 134/99 02/26/23 00:00 75 23 96 02/26/23 00:00 131/77 02/25/23 23:30 137/82 02/25/23 23:30 73 17 99 02/25/23 23:00 75 23 99 02/25/23 23:00 144/84 H 02/25/23 22:30 126/81 02/25/23 22:30 72 22 100 02/25/23 22:00 74 26 H 100 02/25/23 22:00 132/80 02/26/23 02:19 76 24 99 02/26/23 02:17 78 24 97 02/26/23 01:00 98.4 F 73 32 H 116/72 91 02/26/23 00:39 02/26/23 00:39 02/26/23 00:39 02/26/23 00:47 99.1 F 77 26 H 134/99 98 02/26/23 00:00 76 21 131/77 96 02/25/23 23:20 70 22 100 02/25/23 21:43 02/25/23 21:30 80 20 127/74 100 02/25/23 21:00 85 24 100 02/25/23 20:36 89 28 H 100 02/25/23 20:36 89 02/25/23 20:36 02/25/23 20:36 91 H 38 H 96 02/25/23 20:36 100.4 F H 91 H 38 H 178/111 H 96 02/25/23 20:39 92 H 36 H 100 02/25/23 20:37 90 32 H 100 Pulse Ox O2 Del Method O2 Del Method O2 Flow Rate FiO2 02/26/23 05:01 02/26/23 05:01 02/26/23 05:00 02/26/23 04:00 02/26/23 04:00 02/26/23 03:00 02/26/23 03:00 02/26/23 02:00 02/26/23 02:00 02/26/23 01:00 02/26/23 01:00 02/26/23 00:25 02/26/23 00:25 02/26/23 00:00 02/26/23 00:00 02/25/23 23:30 02/25/23 23:30 02/25/23 23:00 02/25/23 23:00 02/25/23 22:30 02/25/23 22:30 02/25/23 22:00 02/25/23 22:00 02/26/23 02:19 35 02/26/23 02:17 Nasal Cannula 5 02/26/23 01:00 Nasal Cannula 5 02/26/23 00:39 Nasal Cannula 5 02/26/23 00:39 91 Nasal Cannula 02/26/23 00:39 Nasal Cannula 5 02/26/23 00:47 Nasal Cannula 8 02/26/23 00:00 Nasal Cannula 5 02/25/23 23:20 40 02/25/23 21:43 BiPAP 40 02/25/23 21:30 BiPAP 02/25/23 21:00 02/25/23 20:36 02/25/23 20:36 02/25/23 20:36 Non-rebreather 15 02/25/23 20:36 Non-rebreather 15 02/25/23 20:36 Non-rebreather 15 02/25/23 20:39 BiPAP 40 02/25/23 20:37 40 Laboratory Results Reviewed CBC Reviewed PRP Personally discussed this case with pulmonary makeup sales consultant PG Care Time/CCT Total # of Minutes Spent Total Time Spent with Patient: Total time spent is greater than 50% in coordination of care (as documented) at patient's floor/unit and/or counseling patient: Coding Level of Care Code 24431 SUB INP/OBS CARE 3/50MIN Diagnoses Pneumonia J18.9 Acute exacerbation of chronic obstructive pulmonary disease (COPD) J44.1 Seizure disorder G40.909
[2023-02-26] MEDS: ENOXAPARIN INJ 40 MG/0.4 ML SYR SQ SCH (07:54)
[2023-02-26] MEDS: FOLIC ACID 1 MG TAB PO SCH (07:54)
[2023-02-26] MEDS: PHENYTOIN SODIUM ER 100 MG CAP PO SCH ×2 (07:55→21:07)
--- NOTE | 2023-02-26 08:41 | XRay Report ---
XR chest 1V portable CLINICAL HISTORY: Dyspnea TECHNIQUE: Single frontal radiograph of the chest was obtained. Comparison: Comparison is made to chest radiograph 02/23/2023 FINDINGS: No lines and tubes are seen. Calcified aortic knob is seen. Bilateral lower lung predominant airspace opacities are seen. No evidence of pleural effusion or pneumothorax. IMPRESSION: Bilateral lower lung predominant airspace opacities which may represent atelectasis, pneumonia, and/o r aspiration. ACT 112: Negative or not required by law. Electronically signed by: Andrey Campuzano M.D. 02/26/2023 8:40 AM
[2023-02-26] MEDS ORDERED: UMECLIDINIUM/VILANTEROL 62.5/25MCG 7 PUFFS/INHALER INH SCH (09:00)
[2023-02-26] MEDS ORDERED: NON-FORMULARY MEDICATION (Fluticasone-Umeclidin-Vilanter [Trelegy Ellipta] 200-62.5-25 mcg INH SCH (09:00)
[2023-02-26] MEDS ORDERED: methylPREDNISolone 40 MG in SYRINGE 0 ML IV SCH (09:00)
[2023-02-26] MEDS ORDERED: FLUTICASONE FUROATE 200MCG 14 PUFFS/INHALER INH SCH (09:00)
--- NOTE | 2023-02-26 10:34 | Electrocardiogram Report ---
Test Reason : Blood Pressure : / mmHG Vent. Rate : 091 BPM Atrial Rate : 091 BPM P-R Int : 144 ms QRS Dur : 092 ms QT Int : 342 ms P-R-T Axes : 077 059 068 degrees QTc Int : 420 ms Normal sinus rhythm Nonspecific ST abnormality When compared with ECG of 23-FEB-2023 00:50, Nonspecific T wave abnormality now evident in Anterior leads Confirmed by Von Perez ([id number] on 02/26/2023 10:34:44 AM Referred By: REFERRED SELF Confirmed By:Jose De Jesus Perez
--- NOTE | 2023-02-26 11:52 | Pulmonary Consultation ---
Date of Consultation February 26, 2023 Assessment & Plan (1) Bronchopneumonia due to human metapneumovirus (hMPV): Agree with empiric steroids at this time. We will decrease from 40 mg 3 times daily Solu-Medrol to 40 mg daily. Viral illness is typically self-limiting. Continue supportive measures. Difficult to rule out bacterial infection. Agree with azithromycin and Rocephin for the time being especially in light of the elevated procalcitonin and productive sputum. Sputum culture ordered. Hypertonic saline twice daily along with percussive vest therapy ordered to promote mucociliary clearance. CT chest ordered with contrast to evaluate for thromboembolic phenomenon, underlying masses, lobar pneumonia, mucous plugging, effusion, and/or other. (2) Acute exacerbation of chronic obstructive pulmonary disease (COPD): Continue with methylprednisone as noted above. Transition to oral corticosteroids in the next 1 to 2 days. Exacerbation triggered by viral infection. Given the acute nature of his disease, I have discontinued Anoro Ellipta and Arnuity. I have placed an order for nebulized budesonide and nebulized formoterol for ease of use and increased efficacy. (3) Acute hypoxemic respiratory failure: Hypoxemia is mild at this time and appears to be improving. Suspect he has an element of significant exertional hypoxemia. We will need walk test prior to home discharge to evaluate for supplemental oxygen at home. (4) Acute dyspnea: Secondary to acute bronchial pneumonia and respiratory bronchiolitis from metapneumovirus. (5) Tobacco abuse counseling: Strongly encourage complete smoking cessation. Patient understands. Plan Thank you for the consult. We will continue to follow with you. History of Present Illness Reason for Consultation: COPD exacerbation Attending Physician: David Barney MD History of Present Illness 67-year-old male with history of seizure disorder, insomnia, impaired fasting glucose, hypertension and a greater than [id number] smoking history who presented to the hospital due to increasing shortness of breath and productive cough. Respiratory viral panel on the was positive for human metapneumovirus. The patient is currently on Solu-Medrol 40 mg 3 times daily and azithromycin. He notes minimal relief in symptoms. He has severe dyspnea with minimal exertion. He is coughing incessantly. He notes that he is producing yellow and green phlegm. He denies hemoptysis. He has some mild chest pain when coughing. Denies any recent fevers, chills or night sweats. He notes that he recently cut back on his smoking to 3 to 4 cigarettes, but this is only for 1 to 2 days prior to his hospitalization. He notes that he lives alone at home independently. 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 He denies any pets. He denies any exposure to sandblasting or heavy metal fumes. Chest x-ray from the was personally reviewed which revealed bilateral lower lobe predominant airspace opacities and upper lobe predominant emphysema. Lungs appeared hyperexpanded. CT chest 05/21/2022 with evidence of severe centrilobular emphysema and small tree-in-bud opacities. Allergies Allergy/AdvReac Type Severity Reaction Status Date / Time phenobarbital AdvReac Severe MIGRAINE/SEVERE Verified 02/25/23 21:38 PAIN Home Medications Medication Instructions Recorded Confirmed Type aspirin 81 mg tablet,delayed 81 mg PO HS #30 tabs 07/13/19 02/25/23 History release sildenafil 50 mg tablet 50 mg PO DAILY PRN sexual activity 02/12/22 02/25/23 Rx #20 tabs budesonide-formoterol HFA 160 2 puff inhalation BID #10.2 grams 02/26/22 02/25/23 Rx mcg-4.5 mcg/actuation aerosol inhaler (Symbicort) naproxen sodium 220 mg tablet 220 mg PO Q12H PRN Pain 04/08/22 02/25/23 History (Aleve) ipratropium 0.5 mg-albuterol 3 mg 3 ml inhalation QID PRN wheezing 04/23/22 02/25/23 Rx (2.5 mg base)/3 mL nebulization #180 mL soln tiotropium bromide 2.5 5 mcg inhalation DAILY #4 grams 04/23/22 02/25/23 Rx mcg/actuation mist for inhalation (Spiriva Respimat) fluticasone fur. 200 mcg-umeclid 1 inh inhalation DAILY #60 ea 07/18/22 02/25/23 Rx 62.5 mcg-vilant 25 mcg inhalat.powder (Trelegy Ellipta) albuterol sulfate 90 mcg/actuation 2 puff inhalation Q4H PRN 11/02/22 02/25/23 Rx aerosol inhaler (Ventolin HFA) shortness of breath or wheezing #18 grams folic acid 1 mg tablet 1 mg PO DAILY #90 tabs 12/14/22 02/25/23 Rx phenytoin sodium extended 100 mg 300 mg PO BID #180 caps 01/07/23 02/25/23 Rx capsule prednisone 50 mg tablet 50 mg PO DAILY 5 days #5 tabs 02/23/23 02/25/23 Rx Patient History Medical History (Updated 02/26/23 @ 11:48 by Jackson Richardson MD) Acute dyspnea Acute hypoxemic respiratory failure Bronchopneumonia due to human metapneumovirus (hMPV) COPD with emphysema Depression Hypercholesterolemia Hypertension Seizure disorder Tobacco abuse counseling Surgical History Thrombophlebitis Tonsillectomy planned Family History Other Adopted Family history unknown Social History Smoking Status: Light tobacco smoker Tobacco Type: Cigarettes Age Started Using Tobacco: 18; packs per day: 0.25; Cigarettes Per Day: .25-2ppd; Second Hand Exposure: No; Do You Dip or Chew Tobacco: No; Tobacco Cessation Education Requested by Patient: Yes Hx Alcohol Use: Yes Alcohol type: beer Hx Substance Use: No Preferred Language: Singaporean Communication Ability: Effective Visual Impairment: No Limitations Hearing Ability: Normal Diversity Specialist Required: No Beliefs That Will Affect Care: None marital status: Single Current Living Situation: Alone current occupational status: retired Other Information That Helps Us Care for You: No Feels Safe at Home: Yes Safety Concerns: Feels Safe At This Time Childhood Exposure to Second-Hand Smoke: Yes Diet: regular Diet Comment: Doesn't eat after 8 PM caffeine: Yes during the past year weight has: remained stable Dental Care, Regularly: No Physical Activity Frequency: 1-2 Times per Week Physical Activity Frequency Comment: weight lifting 60minutes Seatbelt Use: always Sunscreen Use: No Assistive Devices: Denture - Upper and Glasses Review of Systems Review of Systems: All systems reviewed & are unremarkable except as noted in HPI & below Physical Exam Physical Exam: Constitutional: Thin appearing male in moderate distress coughing throughout the exam. Eyes: Pupils are equal round and reactive to light. Conjunctivae are normal. Anicteric sclera. Ears nose, mouth and throat: Mallampati class 2. Normal posterior oropharynx. Uvula is midline. Neck: Trachea is midline. Visual inspection is normal. Respiratory: Coarse rhonchi bilaterally. Prolonged phase of exhalation. Mild tachypnea. Cardiovascular: Regular rate and rhythm. No murmurs. No edema. Gastrointestinal: Normal bowel sounds, soft, nontender and nondistended. No hepatosplenomegaly noted. Musculoskeletal: No cyanosis. Patient is able to move all extremities. Strength is 5 out of 5 in the upper and lower extremities. Skin: No rashes, warm dry and intact. Neurologic: No obvious focal neurological deficits seen. Psychiatric: Anxious appearing. Alert and oriented x3. Results & Data Results & Data Vital Signs (Past 12 Hours) Vital Signs Temp Pulse Pulse Resp BP BP Pulse Ox 02/26/23 11:00 70 22 105/67 97 02/26/23 08:00 36.5 C 02/26/23 11:27 36.7 C 02/26/23 11:26 68 20 94 02/26/23 08:07 81 26 H 99 02/26/23 07:49 02/26/23 07:24 72 27 H 112/77 100 02/26/23 07:30 80 24 100 02/26/23 05:01 78 26 H 98 02/26/23 05:01 114/71 02/26/23 05:00 75 25 H 99 02/26/23 04:00 75 26 H 98 02/26/23 04:00 113/90 02/26/23 03:00 75 25 H 100 02/26/23 03:00 131/79 02/26/23 02:00 77 28 H 96 02/26/23 02:00 92/48 L 02/26/23 01:00 75 21 97 02/26/23 01:00 116/72 02/26/23 00:25 78 26 H 97 02/26/23 00:25 134/99 02/26/23 00:00 75 23 96 02/26/23 00:00 131/77 02/26/23 02:19 76 24 99 02/26/23 02:17 78 24 97 02/26/23 01:00 36.9 C 73 32 H 116/72 91 02/26/23 00:39 02/26/23 00:39 02/26/23 00:39 02/26/23 00:47 37.3 C 77 26 H 134/99 98 02/26/23 00:00 76 21 131/77 96 Pulse Ox O2 Del Method O2 Del Method O2 Flow Rate FiO2 02/26/23 11:00 Nasal Cannula 2 02/26/23 08:00 02/26/23 11:27 02/26/23 11:26 Nasal Cannula 2 02/26/23 08:07 35 02/26/23 07:49 Oxymask 6 02/26/23 07:24 Oxymask 6 02/26/23 07:30 Oxymask 7 02/26/23 05:01 02/26/23 05:01 02/26/23 05:00 02/26/23 04:00 02/26/23 04:00 02/26/23 03:00 02/26/23 03:00 02/26/23 02:00 02/26/23 02:00 02/26/23 01:00 02/26/23 01:00 02/26/23 00:25 02/26/23 00:25 02/26/23 00:00 02/26/23 00:00 02/26/23 02:19 35 02/26/23 02:17 Nasal Cannula 5 02/26/23 01:00 Nasal Cannula 5 02/26/23 00:39 Nasal Cannula 5 02/26/23 00:39 91 Nasal Cannula 02/26/23 00:39 Nasal Cannula 5 02/26/23 00:47 Nasal Cannula 8 02/26/23 00:00 Nasal Cannula 5 PG Care Time/CCT Total # of Minutes Spent Total Time Spent with Patient: Total time spent is greater than 50% in coordination of care (as documented) at patient's floor/unit and/or counseling patient: Coding Level of Care Code 23223 INT INP/OBS CARE 3/75MIN Diagnoses Bronchopneumonia due to human metapneumovirus (hMPV) J12.3 Acute exacerbation of chronic obstructive pulmonary disease (COPD) J44.1 Acute hypoxemic respiratory failure J96.01 Acute dyspnea R06.00 Tobacco abuse counseling Z71.6
[2023-02-26] MEDS: SODIUM CHLOR 7% 4 ML NEB NEB SCH ×2 (13:25→19:17)
[2023-02-26] MEDS ORDERED: OPTIRAY 320 500ml IV ONE (14:09)
--- NOTE | 2023-02-26 14:31 | CT Scan Report ---
CT angio chest PE protocol CLINICAL HISTORY: PE, bronchiolitis, pna TECHNIQUE: Multidetector row helical CT of the chest was performed with angiographic protocol. Flanagan l and sagittal reformations were obtained. Coronal and sagittal MIPS were obtained from the axial elif a set and were submitted for review. Automated dose lowering techniques and/or adjustment according to patient size were utilized for this exam. CT DOSE: 335.68 mGy.cm Comparison: Comparison is made to CT chest 05/21/2022 FINDINGS: Lungs and pleura: Multifocal airspace and groundglass opacities are seen. Bronchiectasis and bronchia l wall thickening are noted. Diffuse emphysema is noted. There is a noted tiny pulmonary nodules are difficult to assess against this background. Heart and pericardium: Heart size is normal. No pericardial effusion. Vessels: No evidence of pulmonary embolism. Mediastinum and miriam: Lymphadenopathy is seen most prominently in the right hilum with nodes measurin g up to 19 mm in short axis. Calcification is seen in the subcarinal region which may represent calci fied lymph node. Chest wall and lower neck: Unremarkable. Abdomen: Unremarkable. Bones: Degenerative changes in the thoracic spine. IMPRESSION: 1. No pulmonary embolus is seen. 2. Multifocal airspace opacities compatible with pneumonia with reactive lymphadenopathy. 3. Emphysema. 4. Redemonstration of calcified subcarinal node. ACT 112: Negative or not required by law. Electronically signed by: Andrey Campuzano M.D. 02/26/2023 2:30 PM
[2023-02-26] MEDS: FORMOTEROL 20 MCG/2 ML VIAL INH SCH (19:17)
[2023-02-26] MEDS: BUDESONIDE 0.5 MG/2 ML VIAL (PULMICORT) NEB SCH (19:17)
[2023-02-26] MEDS: AZITHROMYCIN 250 MG in DEXTROSE 5% 250 ML IV SCH (21:07)
[2023-02-26] MEDS: ASPIRIN 81 MG ECTAB PO SCH (21:07)
[2023-02-26] MEDS ORDERED: cefTRIAXone SODIUM 1,000 MG in DEXTROSE 5% AD-VAN 50 ML IV SCH (22:00)
[2023-02-27] MEDS: ALBUT/IPRATROP 3MG/0.5MG NEB 3 ML VIAL NEB SCH ×6 (02:45→23:09)
[2023-02-27] MEDS: SODIUM CHLOR 7% 4 ML NEB NEB SCH ×2 (06:56→19:19)
[2023-02-27] MEDS: FORMOTEROL 20 MCG/2 ML VIAL INH SCH ×2 (06:56→19:19)
[2023-02-27] MEDS: BUDESONIDE 0.5 MG/2 ML VIAL (PULMICORT) NEB SCH ×2 (06:56→19:19)
--- NOTE | 2023-02-27 07:56 | Pulmonology Progress Note ---
Date of Service February 27, 2023 Assessment & Plan (1) Bronchopneumonia due to human metapneumovirus (hMPV): Plan: Agree with empiric steroids at this time. Continue methylprednisolone at a dose of 40 mg daily. Viral illness is typically self-limiting. Continue supportive measures. Difficult to rule out bacterial infection. Procalcitonin trending up. Broaden antibiotics from ceftriaxone to cefepime 02/27. Hypertonic saline twice daily along with percussive vest therapy ordered to promote mucociliary clearance. Sputum culture results pending. CT chest with contrast did not reveal evidence of a pulmonary embolism. Nodular opacities noted in the lower lobes. Bilateral hilar adenopathy likely reactive. Will need a follow-up CT in 8 weeks. (2) Acute exacerbation of chronic obstructive pulmonary disease (COPD): Plan: Continue with methylprednisone as noted above. Transition to oral corticosteroids in the next 1 to 2 days. Exacerbation triggered by viral infection. Continue nebulized budesonide twice daily and nebulized formoterol twice daily. Would benefit from outpatient PFTs and possible pulmonary rehab. (3) Acute hypoxemic respiratory failure: Plan: Continue to wean sats to maintain oxygen levels of 88 to 92%. (4) Acute dyspnea: Plan: Secondary to acute bronchial pneumonia and respiratory bronchiolitis from metapneumovirus. (5) Tobacco abuse counseling: Plan: Strongly encourage complete smoking cessation. Patient understands. Plan Thank you for the consult. We will continue to follow with you. Admission and Anticipated Discharge Date Admission Date: February 25, 2023 Subjective Patient seen and examined. Still having a very productive cough. Denies hemoptysis. No chest pain. Shortness of breath with minimal exertion. Mostly in bed. He is only using his BiPAP a couple hours a night. He notes that he is claustrophobic. Review of Systems Review of Systems: All systems reviewed & are unremarkable except as noted in HPI & below Physical Exam Physical Exam: Constitutional: Thin appearing male in moderate distress coughing throughout the exam. Eyes: Pupils are equal round and reactive to light. Conjunctivae are normal. Anicteric sclera. Ears nose, mouth and throat: Mallampati class 2. Normal posterior oropharynx. Uvula is midline. Neck: Trachea is midline. Visual inspection is normal. Respiratory: Coarse rhonchi bilaterally. Prolonged phase of exhalation. Mild tachypnea. Cardiovascular: Regular rate and rhythm. No murmurs. No edema. Gastrointestinal: Normal bowel sounds, soft, nontender and nondistended. No hepatosplenomegaly noted. Musculoskeletal: No cyanosis. Patient is able to move all extremities. Strength is 5 out of 5 in the upper and lower extremities. Skin: No rashes, warm dry and intact. Neurologic: No obvious focal neurological deficits seen. Psychiatric: Anxious appearing. Alert and oriented x3. Results & Data Results & Data Vital Signs (Past 12 Hours) Vital Signs Temp Pulse Pulse Resp BP Pulse Ox Pulse Ox 02/27/23 07:35 37.4 C 73 25 H 118/70 96 02/27/23 06:57 69 18 98 02/27/23 02:48 68 22 92 02/27/23 01:17 68 21 98 02/27/23 00:39 95 02/26/23 22:23 74 18 99 02/26/23 20:00 O2 Del Method O2 Del Method O2 Flow Rate O2 Flow Rate FiO2 02/27/23 07:35 Oxymask 9 02/27/23 06:57 Oxymask 2 02/27/23 02:48 Room Air 02/27/23 01:17 30 02/27/23 00:39 Oxymask 5 02/26/23 22:23 Oxymask 3 02/26/23 20:00 Nasal Cannula 5 PG Care Time/CCT Total # of Minutes Spent Total Time Spent with Patient: Total time spent is greater than 50% in coordination of care (as documented) at patient's floor/unit and/or counseling patient: Coding Level of Care Code 44546 SUB INP/OBS CARE 2/35MIN Diagnoses Bronchopneumonia due to human metapneumovirus (hMPV) J12.3 Acute exacerbation of chronic obstructive pulmonary disease (COPD) J44.1 Acute hypoxemic respiratory failure J96.01 Acute dyspnea R06.00 Tobacco abuse counseling Z71.6
[2023-02-27] MEDS: CEFEPIME 2,000 MG in SYRINGE 0 ML IV SCH ×3 (08:14→22:22)
[2023-02-27] MEDS: methylPREDNISolone 40 MG in SYRINGE 0 ML IV SCH (08:14)
[2023-02-27] MEDS: FOLIC ACID 1 MG TAB PO SCH (09:31)
[2023-02-27] MEDS: ENOXAPARIN INJ 40 MG/0.4 ML SYR SQ SCH (09:31)
[2023-02-27] MEDS: PHENYTOIN SODIUM ER 100 MG CAP PO SCH ×2 (09:32→20:45)
[2023-02-27] MEDS: NICOTINE 21 MG/24 HR TDSY TD SCH (13:19)
[2023-02-27] MEDS ORDERED: LORazepam 2 MG/1 ML VIAL IV PRN (16:28)
--- NOTE | 2023-02-27 16:42 | Hospitalist Progress Note ---
Date of Service February 27, 2023 Assessment & Plan (1) Pneumonia: Plan: Acute hypoxic respiratory failure secondary to Human Metapneumovirus PNA and acute exacerbation of COPD. history of COPD/Empysema one week of progressive dyspnea and cough productive for thick, yellow sputum. -Continue antibiotic coverage given elevation of procalcitonin -change to cefepime to cover gram-negative's as procalcitonin went up and continue azithromycin' sputum culture light normal eugenio -Tylenol PRN -Maintain droplet isolation for human metapneumovirus -Supplemental O2 as needed to maintain saturation of 88-92% -BiPAP as needed for respiratory support (2) Acute exacerbation of chronic obstructive pulmonary disease (COPD): Plan: -Solumedrol 40mg IV tapered to daily dosing -Continue Trelegy or formulary equivalent -DuoNebs q 4 hours -Albuterol q 2 hours PRN -Flutter valve and IS -Smoking cessation counseling - strongly encourage to quit tobacco (3) Seizure disorder: Plan: Well controlled. Patient reports his last seizure was many years ago. He reports compliance with his Phenytoin - took his evening dose already. -Continue Phenytoin -Continue folic acid With regard to insomnia we will try Seroquel and melatonin Ppx - Lovenox Code - Full per discussion with patient Admission and Anticipated Discharge Date Admission Date: February 25, 2023 Subjective Patient seen and examined. Patient still very short of breath using accessory muscles of respiration and having a nonproductive cough Patient did try to smoke in his room today nursing stopped him Patient claims to not be thinking clearly because he is so sleep deprived we will attempt to get him some sleep this evening Physical Exam Physical Exam: Patient has been titrated to room air he still has coarse expiratory wheezes and using accessory muscle use with prolonged expiratory phase consistent with fairly significant COPD Results & Data Results & Data Vital Signs (Past 12 Hours) Vital Signs Temp Pulse Pulse Resp BP Pulse Ox O2 Del Method 02/27/23 15:54 70 02/27/23 15:32 98.8 F 73 20 108/66 92 Room Air 02/27/23 14:15 71 18 93 Room Air 02/27/23 11:21 98.4 F 70 21 140/81 93 Room Air 02/27/23 08:00 69 02/27/23 08:00 Nasal Cannula 02/27/23 07:35 99.3 F 73 25 H 118/70 96 Oxymask 02/27/23 06:57 69 18 98 Oxymask O2 Flow Rate 02/27/23 15:54 02/27/23 15:32 02/27/23 14:15 02/27/23 11:21 02/27/23 08:00 02/27/23 08:00 2 02/27/23 07:35 9 02/27/23 06:57 2 PG Care Time/CCT Total # of Minutes Spent Total Time Spent with Patient: Total time spent is greater than 50% in coordination of care (as documented) at patient's floor/unit and/or counseling patient: Coding Level of Care Code 63364 SUB INP/OBS CARE 2/35MIN Diagnoses Pneumonia J18.9 Acute exacerbation of chronic obstructive pulmonary disease (COPD) J44.1 Seizure disorder G40.909
[2023-02-27] MEDS: ASPIRIN 81 MG ECTAB PO SCH (20:45)
[2023-02-27] MEDS: MELATONIN 3 MG TAB PO SCH (20:45)
[2023-02-27] MEDS ORDERED: QUEtiapine FUMARATE 25 MG TABLET PO ONE (21:00)
[2023-02-27] MEDS: AZITHROMYCIN 250 MG in DEXTROSE 5% 250 ML IV SCH (22:22)
[2023-02-28] MEDS: ALBUT/IPRATROP 3MG/0.5MG NEB 3 ML VIAL NEB SCH ×6 (02:27→22:43)
[2023-02-28 05:09] LABS: Hematocrit (blood only) 36.2 % (42.0-52.0); Hemoglobin 12.3 g/dl (14.0-18.0); Mean Corpuscular Hemoglobin 30.5 pg (25.0-34.0); Mean Corpuscular Volume 89.8 fL (80.0-100.0); Platelet Count 187 K/uL (130-400); RDW Coefficient of Variation 13.2 % (11.5-14.5); RDW Standard Deviation 43.3 fL (36.4-46.3); Red Blood Count 4.03 M/uL (4.70-6.10); White Blood Count 11.59 K/ul (4.8-10.8)
[2023-02-28 05:20] LABS: BUN Creatinine Ratio 24.3 (10-20); Calcium 8.8 mg/dl (8.6-10.3); Creatinine Clr Calc Pharmacy 102.4 ml/min; Est GFR (African American) 111.6 ml/min; Est GFR (Non-African American) 96.3 ml/min; Potassium 3.8 mmol/L (3.5-5.1)
[2023-02-28] MEDS: FORMOTEROL 20 MCG/2 ML VIAL INH SCH ×2 (07:15→19:19)
[2023-02-28] MEDS: BUDESONIDE 0.5 MG/2 ML VIAL (PULMICORT) NEB SCH ×2 (07:15→19:19)
[2023-02-28] MEDS: SODIUM CHLOR 7% 4 ML NEB NEB SCH ×2 (07:16→19:19)
[2023-02-28] MEDS: ENOXAPARIN INJ 40 MG/0.4 ML SYR SQ SCH (07:24)
[2023-02-28] MEDS: FOLIC ACID 1 MG TAB PO SCH (07:24)
[2023-02-28] MEDS: CEFEPIME 2,000 MG in SYRINGE 0 ML IV SCH ×3 (07:24→23:50)
[2023-02-28] MEDS: PHENYTOIN SODIUM ER 100 MG CAP PO SCH ×2 (07:25→20:38)
[2023-02-28] MEDS: NICOTINE 21 MG/24 HR TDSY TD SCH (07:25)
[2023-02-28] MEDS: methylPREDNISolone 40 MG in SYRINGE 0 ML IV SCH (07:26)
--- NOTE | 2023-02-28 07:38 | Hospitalist Progress Note ---
Date of Service February 28, 2023 Assessment & Plan (1) Pneumonia: Plan: Acute hypoxic respiratory failure secondary to Human Metapneumovirus PNA and acute exacerbation of COPD. history of COPD/Empysema one week of progressive dyspnea and cough productive for thick, yellow sputum. - antibiotics, elevation of procalcitonin - cefepime to cover gram-negative's as procalcitonin went up and continue azithromycin' sputum culture light normal eugenio Pulmonary medicine trending procalcitonin to see if improvement to stop or de-escalate antimicrobial agents Supportive care for human metapneumovirus pneumonia -Tylenol PRN -Maintain droplet isolation for human metapneumovirus -Supplemental O2 as needed to maintain saturation of 88-92% -BiPAP as needed for respiratory support (2) Acute exacerbation of chronic obstructive pulmonary disease (COPD): Plan: -Solumedrol 40mg IV tapered to daily dosing -Continue Trelegy or formulary equivalent -DuoNebs q 4 hours -Albuterol q 2 hours PRN -Flutter valve and IS, hypertonic saline nebs, chest vest -Smoking cessation counseling - strongly encourage to quit tobacco (3) Seizure disorder: Plan: Well controlled. Patient reports his last seizure was many years ago. He reports compliance with his Phenytoin - took his evening dose already. -Continue Phenytoin -Continue folic acid With regard to insomnia we will try Seroquel and melatonin mixed results will try an additional dose on the evening of 02/28/2023 Ppx - Lovenox Code - Full per discussion with patient Admission and Anticipated Discharge Date Admission Date: February 25, 2023 Subjective Patient is tachypneic pursed lipped breathing he is oriented but occasionally says [id number] comments. He says he is got a "[id number] personality" Seen by pulmonary medicine today continuing methylprednisolone following trending procalcitonin to determine if cefepime and azithromycin should be continued chest vest and saline hypertonic nebs Continue budesonide/formoterol Tobacco cessation counseling patient was smoking in his room on 27 February Physical Exam Physical Exam: Patient continues with moderate respiratory distress accessory muscle use pursed lipped breathing unable to speak in full sentences Lungs are coarse with end expiratory wheezes and prolonged expiratory phase Patient refusing BiPAP due to claustrophobia Results & Data Results & Data Vital Signs (Past 12 Hours) Vital Signs Temp Pulse Pulse Resp BP Pulse Ox O2 Del Method 05/18/23 07:18 70 20 97 Nasal Cannula 02/28/23 03:28 98.6 F 68 18 107/53 L 96 Room Air 02/28/23 00:00 02/28/23 00:00 65 02/27/23 23:49 97.7 F 67 18 140/80 94 BiPAP 02/27/23 23:13 68 22 94 02/27/23 23:13 68 22 94 BiPAP 02/27/23 21:31 98.6 F 70 24 131/81 92 Nasal Cannula 02/27/23 21:22 Nasal Cannula O2 Del Method O2 Flow Rate O2 Flow Rate FiO2 02/28/23 07:18 2 02/28/23 03:28 2 02/28/23 00:00 Nasal Cannula 2 02/28/23 00:00 02/27/23 23:49 25 02/27/23 23:13 25 02/27/23 23:13 25 02/27/23 21:31 1 02/27/23 21:22 1 Laboratory Results Reviewed CBC reviewed PRP PG Care Time/CCT Total # of Minutes Spent Total Time Spent with Patient: Total time spent is greater than 50% in coordination of care (as documented) at patient's floor/unit and/or counseling patient: Coding Level of Care Code 58003 SUB INP/OBS CARE 3/50MIN Diagnoses Pneumonia J18.9 Acute exacerbation of chronic obstructive pulmonary disease (COPD) J44.1 Seizure disorder G40.909
--- NOTE | 2023-02-28 08:40 | Pulmonology Progress Note ---
Date of Service February 28, 2023 Assessment & Plan (1) Bronchopneumonia due to human metapneumovirus (hMPV): Plan: Agree with empiric steroids at this time. Continue methylprednisolone at a dose of 40 mg daily. Viral illness is typically self-limiting. Continue supportive measures. Difficult to rule out bacterial infection. Procalcitonin trending up. Repeat procalcitonin tomorrow. Continue cefepime 02/27. Hypertonic saline twice daily along with percussive vest therapy ordered to promote mucociliary clearance. Sputum culture results with light normal eugenio, although this was on antibiotics for several days. CT chest with contrast did not reveal evidence of a pulmonary embolism. Nodular opacities noted in the lower lobes. Bilateral hilar adenopathy likely reactive. Will need a follow-up CT in 8 weeks. (2) Acute exacerbation of chronic obstructive pulmonary disease (COPD): Plan: Continue with methylprednisone as noted above. Transition to oral corticosteroids in the next 1 to 2 days. Exacerbation triggered by viral infection. Continue nebulized budesonide twice daily and nebulized formoterol twice daily. Would benefit from outpatient PFTs and possible pulmonary rehab. (3) Acute hypoxemic respiratory failure: Plan: Continue to wean sats to maintain oxygen levels of 88 to 92%. He does appear clinically worse today and there is a low threshold now for invasive mechanical ventilation. (4) Acute dyspnea: Plan: Secondary to acute bronchial pneumonia and respiratory bronchiolitis from metapneumovirus. (5) Tobacco abuse counseling: Plan: Strongly encouraged complete smoking cessation. 02/27/2023 the patient actually lit up his own cigarettes in the ICU room with oxygen running. He was told to put his cigarette out and he flushed it down the toilet. He seems to have very poor insight into his disease process. (6) Noncompliance: Plan: Patient is noncompliant with the use of BiPAP. He is also trying to smoke cigarettes while in the ICU and critically ill. He has poor insight into his health issues as noted above. He does have increasing agitation. May need to utilize Precedex if this worsens. Plan Thank you for the consult. We will continue to follow with you. Admission and Anticipated Discharge Date Admission Date: February 25, 2023 Subjective Patient seen and examined. He remains tachypneic today and is agitated. He is unwilling to wear his BiPAP mask. He has a nebulizer mask in place. He says that he is hungry and wanting to eat. He is frustrated with the staff for limiting his mobility while in the hospital. I reiterated to him that he is quite sick and hypoxic and that he needs to wear his supplemental oxygen and also has BiPAP. Review of Systems Review of Systems: All systems reviewed & are unremarkable except as noted in HPI & below Physical Exam Physical Exam: Constitutional: Thin appearing male in moderate distress coughing throughout the exam. Eyes: Pupils are equal round and reactive to light. Conjunctivae are normal. Anicteric sclera. Ears nose, mouth and throat: Mallampati class 2. Normal posterior oropharynx. Uvula is midline. Neck: Trachea is midline. Visual inspection is normal. Respiratory: Coarse rhonchi bilaterally. Prolonged phase of exhalation. Mild tachypnea. Cardiovascular: Regular rate and rhythm. No murmurs. No edema. Gastrointestinal: Normal bowel sounds, soft, nontender and nondistended. No hepatosplenomegaly noted. Musculoskeletal: No cyanosis. Patient is able to move all extremities. Strength is 5 out of 5 in the upper and lower extremities. Skin: No rashes, warm dry and intact. Neurologic: No obvious focal neurological deficits seen. Psychiatric: Anxious appearing. Alert and oriented x3. Results & Data Results & Data Vital Signs (Past 12 Hours) Vital Signs Temp Pulse Pulse Resp BP Pulse Ox O2 Del Method 02/28/23 07:18 70 20 97 Nasal Cannula 02/28/23 03:28 37.0 C 68 18 107/53 L 96 Room Air 02/28/23 00:00 02/28/23 00:00 65 02/27/23 23:49 36.5 C 67 18 140/80 94 BiPAP 02/27/23 23:13 68 22 94 02/27/23 23:13 68 22 94 BiPAP 02/27/23 21:31 37.0 C 70 24 131/81 92 Nasal Cannula 02/27/23 21:22 Nasal Cannula O2 Del Method O2 Flow Rate O2 Flow Rate FiO2 02/28/23 07:18 2 02/28/23 03:28 2 02/28/23 00:00 Nasal Cannula 2 02/28/23 00:00 02/27/23 23:49 25 02/27/23 23:13 25 02/27/23 23:13 25 02/27/23 21:31 1 02/27/23 21:22 1 PG Care Time/CCT Total # of Minutes Spent Total Time Spent with Patient: Total time spent is greater than 50% in coordination of care (as documented) at patient's floor/unit and/or counseling patient: Coding Level of Care Code 87922 SUB INP/OBS CARE 3/50MIN Diagnoses Bronchopneumonia due to human metapneumovirus (hMPV) J12.3 Acute exacerbation of chronic obstructive pulmonary disease (COPD) J44.1 Acute hypoxemic respiratory failure J96.01 Acute dyspnea R06.00 Tobacco abuse counseling Z71.6 Noncompliance Z91.199
[2023-02-28] MEDS: MELATONIN 3 MG TAB PO SCH (20:38)
[2023-02-28] MEDS: ASPIRIN 81 MG ECTAB PO SCH (20:39)
[2023-02-28] MEDS ORDERED: QUEtiapine FUMARATE 25 MG TABLET PO ONE (21:00)
[2023-02-28] MEDS: AZITHROMYCIN 250 MG in DEXTROSE 5% 250 ML IV SCH (23:20)
[2023-03-01] MEDS: ALBUT/IPRATROP 3MG/0.5MG NEB 3 ML VIAL NEB SCH ×6 (02:22→23:04)
[2023-03-01 06:09] LABS: Creatinine Clr Calc Pharmacy 91.1 ml/min; Est GFR (African American) 106.2 ml/min; Est GFR (Non-African American) 91.6 ml/min
[2023-03-01] MEDS: FORMOTEROL 20 MCG/2 ML VIAL INH SCH ×2 (07:13→19:45)
[2023-03-01] MEDS: SODIUM CHLOR 7% 4 ML NEB NEB SCH ×2 (07:13→19:45)
[2023-03-01] MEDS: BUDESONIDE 0.5 MG/2 ML VIAL (PULMICORT) NEB SCH ×2 (07:13→19:45)
[2023-03-01] MEDS: FOLIC ACID 1 MG TAB PO SCH (08:17)
[2023-03-01] MEDS: ENOXAPARIN INJ 40 MG/0.4 ML SYR SQ SCH (08:17)
[2023-03-01] MEDS: CEFEPIME 2,000 MG in SYRINGE 0 ML IV SCH ×3 (08:17→22:54)
[2023-03-01] MEDS: NICOTINE 21 MG/24 HR TDSY TD SCH (08:18)
[2023-03-01] MEDS: methylPREDNISolone 40 MG in SYRINGE 0 ML IV SCH (08:18)
[2023-03-01] MEDS: PHENYTOIN SODIUM ER 100 MG CAP PO SCH ×2 (08:19→20:28)
--- NOTE | 2023-03-01 08:25 | Pulmonology Progress Note ---
Date of Service March 01, 2023 Assessment & Plan (1) Bronchopneumonia due to human metapneumovirus (hMPV): Plan: Agree with empiric steroids at this time. Continue methylprednisolone at a dose of 40 mg daily. Viral illness is typically self-limiting. Continue supportive measures. Difficult to rule out bacterial infection. Procalcitonin trending up. Continue cefepime 02/27. Hypertonic saline twice daily along with percussive vest therapy ordered to promote mucociliary clearance. Sputum culture results with light normal eugenio, although this was on antibiotics for several days. CT chest with contrast did not reveal evidence of a pulmonary embolism. Nodular opacities noted in the lower lobes. Bilateral hilar adenopathy likely reactive. Will need a follow-up CT in 8 weeks. (2) Acute exacerbation of chronic obstructive pulmonary disease (COPD): Plan: Continue with methylprednisone as noted above. Transition to oral corticosteroids in the next 1 to 2 days. Exacerbation triggered by viral infection. Continue nebulized budesonide twice daily and nebulized formoterol twice daily. Would benefit from outpatient PFTs and possible pulmonary rehab. (3) Acute hypoxemic respiratory failure: Plan: Continue to wean sats to maintain oxygen levels of 88 to 92%. (4) Acute dyspnea: Plan: Secondary to acute bronchial pneumonia and respiratory bronchiolitis from metapneumovirus. Hypoxemia has improved today. (5) Tobacco abuse counseling: Plan: Strongly encouraged complete smoking cessation. 02/27/2023 the patient actually lit up his own cigarettes in the ICU room with oxygen running. He was told to put his cigarette out and he flushed it down the toilet. He seems to have very poor insight into his disease process. (6) Noncompliance: Plan: Patient is noncompliant with the use of BiPAP. He is also trying to smoke cigarettes while in the ICU and critically ill. He has poor insight into his health issues as noted above. Agitation a little better today. Plan Thank you for the consult. We will continue to follow with you. Admission and Anticipated Discharge Date Admission Date: February 25, 2023 Subjective Patient continues with pursed lip breathing. He becomes short of breath getting out of bed to urinate. He has noticed a very mild improvement in his respiratory symptoms. He notes that he is very reluctant to wear his BiPAP and is not interested in utilizing that despite our recommendations. He denies chest pain, fevers or chills. Review of Systems Review of Systems: All systems reviewed & are unremarkable except as noted in HPI & below Physical Exam Physical Exam: Constitutional: Thin appearing male in in mild distress occasionally coughing. Eyes: Pupils are equal round and reactive to light. Conjunctivae are normal. Anicteric sclera. Ears nose, mouth and throat: Mallampati class 2. Normal posterior oropharynx. Uvula is midline. Neck: Trachea is midline. Visual inspection is normal. Respiratory: Coarse rhonchi bilaterally. Prolonged phase of exhalation. Mild tachypnea. Cardiovascular: Regular rate and rhythm. No murmurs. No edema. Gastrointestinal: Normal bowel sounds, soft, nontender and nondistended. No hepatosplenomegaly noted. Musculoskeletal: No cyanosis. Patient is able to move all extremities. Strength is 5 out of 5 in the upper and lower extremities. Skin: No rashes, warm dry and intact. Neurologic: No obvious focal neurological deficits seen. Psychiatric: Anxious appearing. Alert and oriented x3. Results & Data Results & Data Vital Signs (Past 12 Hours) Vital Signs Temp Pulse Pulse Resp BP BP Pulse Ox 03/01/23 07:15 72 18 94 03/01/23 04:09 62 18 93 03/01/23 04:09 121/72 03/01/23 04:00 61 19 90 03/01/23 02:00 71 28 H 93 03/01/23 00:00 65 20 96 03/01/23 02:24 16 95 03/01/23 00:00 03/01/23 00:00 65 02/28/23 22:43 62 20 97 02/28/23 22:02 36.9 C 62 16 150/83 H 97 02/28/23 21:30 Pulse Ox O2 Del Method O2 Del Method O2 Flow Rate O2 Flow Rate 03/01/23 07:15 Nasal Cannula 03/01/23 04:09 03/01/23 04:09 03/01/23 04:00 03/01/23 02:00 03/01/23 00:00 03/01/23 02:24 Nasal Cannula 2 03/01/23 00:00 93 Nasal Cannula 2 03/01/23 00:00 02/28/23 22:43 Nasal Cannula 2 02/28/23 22:02 Nasal Cannula 2 02/28/23 21:30 Nasal Cannula 2 PG Care Time/CCT Total # of Minutes Spent Total Time Spent with Patient: Total time spent is greater than 50% in coordination of care (as documented) at patient's floor/unit and/or counseling patient: Coding Level of Care Code 42231 SUB INP/OBS CARE 2/35MIN Diagnoses Bronchopneumonia due to human metapneumovirus (hMPV) J12.3 Acute exacerbation of chronic obstructive pulmonary disease (COPD) J44.1 Acute hypoxemic respiratory failure J96.01 Acute dyspnea R06.00 Tobacco abuse counseling Z71.6 Noncompliance Z91.199
[2023-03-01] MEDS: MELATONIN 3 MG TAB PO SCH (20:28)
[2023-03-01] MEDS: ASPIRIN 81 MG ECTAB PO SCH (20:29)
[2023-03-01] MEDS: ACETAMINOPHEN 325 MG TAB PO SCH (20:29)
--- NOTE | 2023-03-01 22:46 | Hospitalist Progress Note ---
Date of Service March 01, 2023 Assessment & Plan (1) Pneumonia: Plan: Acute hypoxic respiratory failure secondary to Human Metapneumovirus PNA and acute exacerbation of COPD. history of COPD/Empysema one week of progressive dyspnea and cough productive for thick, yellow sputum. - antibiotics, elevation of procalcitonin - cefepime to cover gram-negative's as procalcitonin went up and continue azithromycin' sputum culture light normal eugenio Pulmonary medicine trending procalcitonin to see if improvement to stop or de-escalate antimicrobial agents Supportive care for human metapneumovirus pneumonia -Tylenol PRN -Maintain droplet isolation for human metapneumovirus -Supplemental O2 as needed to maintain saturation of 88-92% -BiPAP as needed for respiratory support OXYGEN LEVELS APPEAR TO BE IMPROVING on 03/02 Will continue to monitor (2) Acute exacerbation of chronic obstructive pulmonary disease (COPD): Plan: -Solumedrol 40mg IV tapered to daily dosing -Continue Trelegy or formulary equivalent -DuoNebs q 4 hours -Albuterol q 2 hours PRN -Flutter valve and IS, hypertonic saline nebs, chest vest -Smoking cessation counseling - strongly encourage to quit tobacco (3) Seizure disorder: Plan: Well controlled. Patient reports his last seizure was many years ago. He reports compliance with his Phenytoin - took his evening dose already. -Continue Phenytoin -Continue folic acid With regard to insomnia we will try Seroquel and melatonin mixed results will try an additional dose on the evening of 02/28/2023 Ppx - Lovenox Code - Full per discussion with patient Admission and Anticipated Discharge Date Admission Date: February 25, 2023 Subjective Patient reports no signifcant improvement today. Still feels weak. Has pain. Review of Systems Review of Systems: All systems reviewed & are unremarkable except as noted in HPI & below Physical Exam Physical Exam: Patient continues with pursed lipped breathing Lungs remain coarse Results & Data Results & Data Vital Signs (Past 12 Hours) Vital Signs Temp Pulse Pulse Resp BP Pulse Ox O2 Del Method 03/01/23 20:00 Nasal Cannula 03/01/23 20:14 76 18 94 Nasal Cannula 03/01/23 16:00 36.8 C 69 22 94 03/01/23 15:58 139/81 03/01/23 15:58 66 21 94 03/01/23 14:00 66 21 96 03/01/23 14:07 65 20 95 Nasal Cannula 03/01/23 13:43 93 03/01/23 12:00 69 18 92 03/01/23 12:00 138/83 03/01/23 12:33 36.8 C O2 Flow Rate 03/01/23 20:00 2 03/01/23 20:14 2 03/01/23 16:00 03/01/23 15:58 03/01/23 15:58 03/01/23 14:00 03/01/23 14:07 2 03/01/23 13:43 03/01/23 12:00 03/01/23 12:00 03/01/23 12:33 PG Care Time/CCT Total # of Minutes Spent Total Time Spent with Patient: Total time spent is greater than 50% in coordination of care (as documented) at patient's floor/unit and/or counseling patient: Coding Level of Care Code 35549 SUB INP/OBS CARE 2/35MIN Diagnoses Pneumonia J18.9 Acute exacerbation of chronic obstructive pulmonary disease (COPD) J44.1 Seizure disorder G40.909
[2023-03-01] MEDS: AZITHROMYCIN 250 MG in DEXTROSE 5% 250 ML IV SCH (22:55)
[2023-03-02] MEDS: ALBUT/IPRATROP 3MG/0.5MG NEB 3 ML VIAL NEB SCH ×6 (02:39→22:35)
[2023-03-02 06:00] LABS: Hematocrit (blood only) 38.1 % (42.0-52.0); Hemoglobin 13.1 g/dl (14.0-18.0); Mean Corpuscular Hemoglobin 30.4 pg (25.0-34.0); Mean Corpuscular Hgb Conc 34.4 g/dL (32.0-36.0); Mean Corpuscular Volume 88.4 fL (80.0-100.0); Mean Platelet Volume 9.6 fL (9.4-12.4); Platelet Count 273 K/uL (130-400); RDW Coefficient of Variation 12.9 % (11.5-14.5); RDW Standard Deviation 41.8 fL (36.4-46.3); Red Blood Count 4.31 M/uL (4.70-6.10); White Blood Count 10.17 K/ul (4.8-10.8)
[2023-03-02 06:10] LABS: BUN Creatinine Ratio 31.3 (10-20); C Reactive Protein 13.78 mg/dl (0-0.5); Calcium 8.6 mg/dl (8.6-10.3); Creatinine Clr Calc Pharmacy 115.4 ml/min; Est GFR (African American) 115.8 ml/min; Est GFR (Non-African American) 99.9 ml/min; Potassium 3.8 mmol/L (3.5-5.1)
[2023-03-02] MEDS: BUDESONIDE 0.5 MG/2 ML VIAL (PULMICORT) NEB SCH ×2 (07:18→19:25)
[2023-03-02] MEDS: FORMOTEROL 20 MCG/2 ML VIAL INH SCH ×2 (07:18→19:25)
[2023-03-02] MEDS: SODIUM CHLOR 7% 4 ML NEB NEB SCH ×2 (07:20→19:25)
[2023-03-02] MEDS: NICOTINE 21 MG/24 HR TDSY TD SCH (07:52)
[2023-03-02] MEDS: CEFEPIME 2,000 MG in SYRINGE 0 ML IV SCH ×2 (07:53→15:26)
[2023-03-02] MEDS: ACETAMINOPHEN 325 MG TAB PO SCH ×4 (07:53→21:02)
[2023-03-02] MEDS: methylPREDNISolone 40 MG in SYRINGE 0 ML IV SCH (07:53)
[2023-03-02] MEDS: FOLIC ACID 1 MG TAB PO SCH (07:53)
[2023-03-02] MEDS: PHENYTOIN SODIUM ER 100 MG CAP PO SCH ×2 (07:53→21:01)
--- NOTE | 2023-03-02 09:28 | Pulmonology Progress Note ---
Date of Service March 02, 2023 Assessment & Plan (1) Bronchopneumonia due to human metapneumovirus (hMPV): Plan: Decreased IV Solu-Medrol to 40 mg prednisone daily. We will complete an additional 5-day course. Viral illness is typically self-limiting. Continue supportive measures. Difficult to rule out bacterial infection. Continue coverage with an antipseudomonal antibiotic for total of 10 days. Complete 5- day course of azithromycin. Hypertonic saline twice daily along with percussive vest therapy ordered to promote mucociliary clearance. Sputum culture results with light normal eugenio, although this was on antibiotics for several days. White count trending down. CT chest with contrast did not reveal evidence of a pulmonary embolism. Nodular opacities noted in the lower lobes. Bilateral hilar adenopathy likely reactive. Will need a follow-up CT in 8 weeks. (2) Acute exacerbation of chronic obstructive pulmonary disease (COPD): Plan: Continue prednisone for additional 5-day course. COPD exacerbation triggered by viral illness. Continue nebulized budesonide twice daily and nebulized formoterol twice daily. We will need an ICS/LABA/LAMA inhaler as an outpatient. Would benefit from outpatient PFTs and possible pulmonary rehab. (3) Acute hypoxemic respiratory failure: Plan: Continue to wean sats to maintain oxygen levels of 88 to 92%. (4) Acute dyspnea: Plan: Secondary to acute bronchial pneumonia and respiratory bronchiolitis from metapneumovirus. Hypoxemia continues to improve. We will need to step prior to discharge. (5) Tobacco abuse counseling: Plan: Strongly encouraged complete smoking cessation. 02/27/2023 the patient actually lit up his own cigarettes in the ICU room with oxygen running. (6) Noncompliance: Plan: Patient is noncompliant with the use of BiPAP and smoking cessation. Plan No further recommendation at this time from pulmonary perspective. Please call with questions. Thank you for allowing us to participate in the care of this patient. Admission and Anticipated Discharge Date Admission Date: February 25, 2023 Subjective Patient sitting up in a chair today. He notes that that he does not feel that he is near his baseline. He is reluctant to answer questions. He endorses shortness of breath with minimal exertion. Denies chest pain or fevers. Currently saturating 95% on 2 L nasal cannula. Review of Systems Review of Systems: All systems reviewed & are unremarkable except as noted in HPI & below Physical Exam Physical Exam: Constitutional: Thin appearing male sitting in a chair in no significant distress. Eyes: Pupils are equal round and reactive to light. Conjunctivae are normal. Anicteric sclera. Ears nose, mouth and throat: Mallampati class 2. Normal posterior oropharynx. Uvula is midline. Neck: Trachea is midline. Visual inspection is normal. Respiratory: Prolonged phase of exhalation. Faint wheezing on the expiratory phase. Cardiovascular: Regular rate and rhythm. No murmurs. No edema. Gastrointestinal: Normal bowel sounds, soft, nontender and nondistended. No hepatosplenomegaly noted. Musculoskeletal: No cyanosis. Patient is able to move all extremities. Strength is 5 out of 5 in the upper and lower extremities. Skin: No rashes, warm dry and intact. Neurologic: No obvious focal neurological deficits seen. Psychiatric: Anxious appearing. Alert and oriented x3. Results & Data Results & Data Vital Signs (Past 12 Hours) Vital Signs Temp Pulse Pulse Resp BP Pulse Ox Pulse Ox 03/02/23 08:00 66 21 03/02/23 07:59 67 26 H 95 03/02/23 07:59 130/76 03/02/23 06:45 58 L 19 93 03/02/23 08:00 66 03/02/23 07:20 62 18 94 03/02/23 04:43 62 18 95 03/02/23 04:00 60 16 96 03/02/23 04:00 36.6 C 105/51 L 03/02/23 02:00 61 18 94 03/02/23 00:00 64 19 94 03/02/23 00:00 123/70 03/01/23 22:00 64 19 97 03/02/23 00:00 95 03/02/23 00:00 59 L O2 Del Method O2 Del Method O2 Flow Rate O2 Flow Rate 03/02/23 08:00 03/02/23 07:59 03/02/23 07:59 03/02/23 06:45 03/02/23 08:00 03/02/23 07:20 Nasal Cannula 2 03/02/23 04:43 Nasal Cannula 2 03/02/23 04:00 03/02/23 04:00 03/02/23 02:00 03/02/23 00:00 03/02/23 00:00 03/01/23 22:00 03/02/23 00:00 Nasal Cannula 1 03/02/23 00:00 PG Care Time/CCT Total # of Minutes Spent Total Time Spent with Patient: Total time spent is greater than 50% in coordination of care (as documented) at patient's floor/unit and/or counseling patient: Coding Level of Care Code 35867 SUB INP/OBS CARE 2/35MIN Diagnoses Bronchopneumonia due to human metapneumovirus (hMPV) J12.3 Acute exacerbation of chronic obstructive pulmonary disease (COPD) J44.1 Acute hypoxemic respiratory failure J96.01 Acute dyspnea R06.00 Tobacco abuse counseling Z71.6 Noncompliance Z91.199
[2023-03-02] MEDS: ENOXAPARIN INJ 40 MG/0.4 ML SYR SQ SCH (10:39)
[2023-03-02] MEDS: ASPIRIN 81 MG ECTAB PO SCH (21:01)
[2023-03-02] MEDS: MELATONIN 3 MG TAB PO SCH (21:02)
--- NOTE | 2023-03-02 22:56 | Hospitalist Progress Note ---
Date of Service March 02, 2023 Assessment & Plan (1) Pneumonia: Plan: Acute hypoxic respiratory failure secondary to Human Metapneumovirus PNA and acute exacerbation of COPD. history of COPD/Empysema one week of progressive dyspnea and cough productive for thick, yellow sputum. - antibiotics, elevation of procalcitonin - cefepime to cover gram-negative's as procalcitonin went up and continue azithromycin' sputum culture light normal eugenio Pulmonary medicine trending procalcitonin to see if improvement to stop or de-escalate antimicrobial agents Supportive care for human metapneumovirus pneumonia -Tylenol PRN -Maintain droplet isolation for human metapneumovirus -Supplemental O2 as needed to maintain saturation of 88-92% -BiPAP as needed for respiratory support OXYGEN LEVELS APPEAR TO BE IMPROVING, now on room air. Will continue to monitor (2) Acute exacerbation of chronic obstructive pulmonary disease (COPD): Plan: -Solumedrol 40mg IV tapered to daily dosing -Continue Trelegy or formulary equivalent -DuoNebs q 4 hours -Albuterol q 2 hours PRN -Flutter valve and IS, hypertonic saline nebs, chest vest -Smoking cessation counseling - strongly encourage to quit tobacco (3) Seizure disorder: Plan: Well controlled. Patient reports his last seizure was many years ago. He reports compliance with his Phenytoin - took his evening dose already. -Continue Phenytoin -Continue folic acid With regard to insomnia we will try Seroquel and melatonin mixed results will try an additional dose on the evening of 02/28/2023 Ppx - Lovenox Code - Full per discussion with patient Admission and Anticipated Discharge Date Admission Date: February 25, 2023 Subjective 67 yo male is resting comfortably. Review of Systems Review of Systems: All systems reviewed & are unremarkable except as noted in HPI & below Physical Exam Physical Exam: Patient continues with pursed lipped breathing Lungs are clearer Results & Data Results & Data Vital Signs (Past 12 Hours) Vital Signs Temp Pulse Pulse Resp BP Pulse Ox O2 Del Method 03/02/23 22:37 62 18 94 Nasal Cannula 03/02/23 19:26 59 L 18 95 Nasal Cannula 03/02/23 19:06 36.6 C 61 18 134/81 94 Nasal Cannula 03/02/23 15:34 36.5 C 68 16 124/78 93 Nasal Cannula 03/02/23 15:27 66 03/02/23 15:00 63 22 98 Nasal Cannula 03/02/23 11:30 66 03/02/23 11:29 64 16 126/79 93 Room Air 03/02/23 11:04 68 20 94 Nasal Cannula O2 Flow Rate 03/02/23 22:37 2 03/02/23 19:26 2 03/02/23 19:06 1 03/02/23 15:34 1 03/02/23 15:27 03/02/23 15:00 1 03/02/23 11:30 03/02/23 11:29 03/02/23 11:04 0.5 PG Care Time/CCT Total # of Minutes Spent Total Time Spent with Patient: Total time spent is greater than 50% in coordination of care (as documented) at patient's floor/unit and/or counseling patient: Coding Level of Care Code 64183 SUB INP/OBS CARE 2/35MIN Diagnoses Pneumonia J18.9 Acute exacerbation of chronic obstructive pulmonary disease (COPD) J44.1 Seizure disorder G40.909
[2023-03-03] MEDS: AZITHROMYCIN 250 MG in DEXTROSE 5% 250 ML IV SCH ×2 (00:12→23:22)
[2023-03-03] MEDS: CEFEPIME 2,000 MG in SYRINGE 0 ML IV SCH ×4 (00:16→23:22)
[2023-03-03] MEDS: BUDESONIDE 0.5 MG/2 ML VIAL (PULMICORT) NEB SCH ×2 (06:59→19:41)
[2023-03-03] MEDS: FORMOTEROL 20 MCG/2 ML VIAL INH SCH ×2 (06:59→19:42)
[2023-03-03] MEDS: SODIUM CHLOR 7% 4 ML NEB NEB SCH (06:59)
[2023-03-03] MEDS: ALBUT/IPRATROP 3MG/0.5MG NEB 3 ML VIAL NEB SCH ×2 (07:00→10:48)
[2023-03-03] MEDS: FOLIC ACID 1 MG TAB PO SCH (08:22)
[2023-03-03] MEDS: ACETAMINOPHEN 325 MG TAB PO SCH (08:22)
[2023-03-03] MEDS: ENOXAPARIN INJ 40 MG/0.4 ML SYR SQ SCH (08:22)
[2023-03-03] MEDS: PHENYTOIN SODIUM ER 100 MG CAP PO SCH ×2 (08:23→20:25)
[2023-03-03] MEDS: NICOTINE 21 MG/24 HR TDSY TD SCH (08:23)
[2023-03-03] MEDS: predniSONE 20 MG TAB PO SCH (08:24)
[2023-03-03] MEDS ORDERED: NAPROXEN 250 MG TAB PO PRN (11:22)
[2023-03-03] MEDS ORDERED: ACETAMINOPHEN 325 MG TAB PO PRN (11:23)
--- NOTE | 2023-03-03 11:25 | Hospitalist Progress Note ---
Date of Service March 03, 2023 Assessment & Plan (1) Pneumonia: Plan: Acute hypoxic respiratory failure secondary to Human Metapneumovirus PNA and acute exacerbation of COPD. history of COPD/Empysema one week of progressive dyspnea and cough productive for thick, yellow sputum. - antibiotics, elevation of procalcitonin - cefepime to cover gram-negative's as procalcitonin went up and continue azithromycin' sputum culture light normal eugenio Pulmonary medicine trending procalcitonin to see if improvement to stop or de-escalate antimicrobial agents -will cut back on his breathing treatments. Supportive care for human metapneumovirus pneumonia -Tylenol was scheduled on 03/02, will make it PRN again. -naprosyn PRN -Maintain droplet isolation for human metapneumovirus -Supplemental O2 as needed to maintain saturation of 88-92% -BiPAP as needed for respiratory support OXYGEN LEVELS APPEAR TO BE IMPROVING, now on room air. Will continue to monitor (2) Acute exacerbation of chronic obstructive pulmonary disease (COPD): Plan: -Solumedrol 40mg IV tapered to daily dosing -Continue Trelegy or formulary equivalent -DuoNebs q 4 hours -Albuterol q 2 hours PRN -Flutter valve and IS, hypertonic saline nebs, chest vest -Smoking cessation counseling - strongly encourage to quit tobacco (3) Seizure disorder: Plan: Well controlled. Patient reports his last seizure was many years ago. He reports compliance with his Phenytoin - took his evening dose already. -Continue Phenytoin -Continue folic acid With regard to insomnia we will try Seroquel and melatonin mixed results will try an additional dose on the evening of 02/28/2023 Ppx - Lovenox Code - Full per discussion with patient Admission and Anticipated Discharge Date Admission Date: February 25, 2023 Subjective 67 yo male reports no new symptoms. He still feels short of breath, but he is much better today. He would like to be off his breathing treatment for a day before discharge. Review of Systems Review of Systems: All systems reviewed & are unremarkable except as noted in HPI & below Physical Exam Physical Exam: Patient continues with pursed lipped breathing Lungs are clearer Results & Data Results & Data Vital Signs (Past 12 Hours) Vital Signs Temp Pulse Pulse Resp BP Pulse Ox Pulse Ox 03/03/23 10:48 63 18 94 03/03/23 08:00 03/03/23 08:30 36.7 C 58 L 18 129/78 92 03/03/23 07:00 68 18 92 03/03/23 02:45 36.7 C 64 18 122/66 91 03/03/23 00:00 62 03/03/23 00:00 94 O2 Del Method O2 Del Method 03/03/23 10:48 Room Air 03/03/23 08:00 Room Air 03/03/23 08:30 Room Air 03/03/23 07:00 Room Air 03/03/23 02:45 Room Air 03/03/23 00:00 03/03/23 00:00 Room Air PG Care Time/CCT Total # of Minutes Spent Total Time Spent with Patient: Total time spent is greater than 50% in coordination of care (as documented) at patient's floor/unit and/or counseling patient: Coding Level of Care Code 68131 SUB INP/OBS CARE 2/35MIN Diagnoses Pneumonia J18.9 Acute exacerbation of chronic obstructive pulmonary disease (COPD) J44.1 Seizure disorder G40.909
[2023-03-03] MEDS: MELATONIN 3 MG TAB PO SCH (20:25)
[2023-03-03] MEDS: ASPIRIN 81 MG ECTAB PO SCH (20:25)
[2023-03-03 20:56] LABS: Appearance Urine Clear (Clear); Bacteria Urine Automated Negative (Negative); Bilirubin Urine Negative (Negative); Blood Urine Negative (Negative); Color Urine Yellow; Glucose Urine UA Negative (Negative); Ketones Urine Trace (Negative); Leukocyte Esterase Urine Negative (Negative); Nitrite Urine Negative (Negative); Protein Urine Trace (Negative); RBC Urine Automated 0-4 /hpf (0-4); Specific Gravity Urine 1.029 (1.000-1.030); Urobilinogen Urine Negative (Negative); pH Urine 6.5 (4.5-7.5)
[2023-03-04 05:23] LABS: Est GFR (African American) 110.3 ml/min; Est GFR (Non-African American) 95.2 ml/min
[2023-03-04] MEDS: BUDESONIDE 0.5 MG/2 ML VIAL (PULMICORT) NEB SCH ×2 (08:00→19:17)
[2023-03-04] MEDS: FORMOTEROL 20 MCG/2 ML VIAL INH SCH ×2 (08:00→19:17)
[2023-03-04] MEDS ORDERED: UMECLIDINIUM BROMIDE 62.5MCG/BLISTER 7 PUFFS/INHALER INH SCH (09:00)
[2023-03-04] MEDS: ENOXAPARIN INJ 40 MG/0.4 ML SYR SQ SCH (09:26)
[2023-03-04] MEDS: PHENYTOIN SODIUM ER 100 MG CAP PO SCH (09:27)
[2023-03-04] MEDS: FOLIC ACID 1 MG TAB PO SCH (09:27)
[2023-03-04] MEDS: predniSONE 20 MG TAB PO SCH (09:27)
[2023-03-04] MEDS: CEFEPIME 2,000 MG in SYRINGE 0 ML IV SCH (09:35)
[2023-03-04] MEDS ORDERED: levoFLOXacin 750 MG TAB PO SCH (13:00)
--- NOTE | 2023-03-11 14:36 | Discharge Summary ---
Date of Service March 04, 2023 Admission HPI Per Admitting Provider Nelson Collado is a 67yo male with COPD, current active tobacco use, HTN, HLP and Seizure disorder presenting with several days of progressive SOB. Patient reports progressive SOB x 1 week as well as cough productive for thick, yellow sputum. No hemoptysis. Also with generalized weakness and pain in his legs and knees, abdominal pain, wheezing and nausea. Patient was seen in the ER on 02/22/23 with complaints of mild URI symptoms. No respiratory distress at that time. No wheeze noted on exam. He was treated with IV solumedrol and DuoNeb and discharged home with a prescription for PO Prednisone 50mg po daily x 5 days. Patient reported to me that he did take his oral prednisone and he has been using his inhalers at home as well with very brief improvement in his symptoms. He does not use supplemental O2 at home. Patient called EMS due to worsening respiratory symptoms. Patient found to be tripod position by EMS with audible wheezing and accessory muscle use. Tachypneic with RR in the 40's and hypoxic to 87% on RA in the field. He was placed on 15L NRB and transported to [facility] ER. Upon arrival patient febrile Tm=38, HR=91, RR=38, labored with use of accessory muscles. SpO2 96% on 15L NRB . Patient was placed on BiPAP due to persistent tachypnea and increased work of breathing - 14/6 40% FiO2. Patient with no additional complaints at this time. He denies chest pain, palpitations, nausea, vomiting, abdominal pain, diarrhea. ER Course: Albuterol 3mL neb x 2 Solumedrol 125mg IV Ceftriaxone 1gm Azithromycin 500mg IV Principal Diagnosis pneumonia Discharge Exam Patient continues with pursed lipped breathing Lungs are clearer Discharge Data Allergies Allergy/AdvReac Type Severity Reaction Status Date / Time phenobarbital AdvReac Severe MIGRAINE/SEVERE Verified 02/25/23 21:38 PAIN Consultations 02/25/23 23:03 ED Decision to Admit Stat 02/26/23 13:02 Consult Pulmonology Routine Ordered Studies 02/26/23 11:42 CT angio chest PE protocol Urgent Hospital Course (1) Pneumonia: Acute hypoxic respiratory failure secondary to Human Metapneumovirus PNA and acute exacerbation of COPD. history of COPD/Empysema one week of progressive dyspnea and cough productive for thick, yellow sputum. - antibiotics, elevation of procalcitonin - cefepime to cover gram-negative's as procalcitonin went up and continue azithromycin' sputum culture light normal eugenio Pulmonary medicine trending procalcitonin to see if improvement to stop or de-escalate antimicrobial agents -will cut back on his breathing treatments. Supportive care for human metapneumovirus pneumonia -Tylenol was scheduled on 03/02, will make it PRN again. -naprosyn PRN -Maintain droplet isolation for human metapneumovirus -Supplemental O2 as needed to maintain saturation of 88-92% -BiPAP as needed for respiratory support OXYGEN LEVELS APPEAR TO BE IMPROVING, now on room air. Patient will be discharged on trelegy inhaler daily and will be discharged on levofloxacin for pseudomonas coverage. (2) Acute exacerbation of chronic obstructive pulmonary disease (COPD): -Solumedrol 40mg IV tapered to daily dosing -Continue Trelegy or formulary equivalent -DuoNebs q 4 hours -Albuterol q 2 hours PRN -Flutter valve and IS, hypertonic saline nebs, chest vest -Smoking cessation counseling - strongly encourage to quit tobacco (3) Seizure disorder: Well controlled. Patient reports his last seizure was many years ago. He reports compliance with his Phenytoin - took his evening dose already. -Continue Phenytoin -Continue folic acid Total Time Total Time Spent Total Time Spent (In Minutes): 32 Discharge Plan Discharge Items Patient Disposition: Transfer Inpatient Rehab Fac Reason For Visit: SOB, COPD, VIRAL PNA Discharge Diagnosis: SOB Activity: Resume your previous activity Non-emergency contact: Primary Care Provider Call non-emergency contact if: you have any medication questions Follow-up/Referrals: Noemy Arroyo CRNP [Primary Care Provider] - Diet: Heart Healthy Addtl Attending Provider Instructions: Recommend to continue to use the trelegy inhaler daily. this is a miantenance medicine. Even if you feel well you will need to use this. Also recommend to continue to abstain from smoking. Recommend followup with PCP in 1-2 weeks. Recommend followup with Pulmonary within 1 month Pending Studies at Discharge: No Stand-Alone Forms: [facility] Patient informed of condition?: Yes DNR: No Discharge Level of Care: Acute rehab Communicable Disease: No Discharge Prognosis: Stable Lines: None Urinary Catheter: No Medications and DC Order Prescriptions: New levofloxacin 750 mg Tablet 750 mg PO 1200 Qty: 4 0RF Rx Instructions: once daily at noon prednisone 10 mg tablet 10 mg PO DAILY Qty: 24 0RF Rx Instructions: take 4 tabs for 3 more days then 3 tabs for 2 days 2 tabs for 2 days 1 tab for 2 days Continued albuterol sulfate [Ventolin HFA] 90 mcg/actuation HFA aerosol inhaler 2 puff inhalation Q4H PRN (Reason: shortness of breath or wheezing) Qty: 18 5RF folic acid 1 mg tablet 1 mg PO DAILY Qty: 90 3RF phenytoin sodium extended 100 mg capsule 300 mg PO BID Qty: 180 5RF sildenafil 50 mg tablet 50 mg PO DAILY PRN (Reason: sexual activity) Qty: 20 12RF Rx Instructions: Take 1-2 tablets 30 minutes to 4 hours before activity aspirin 81 mg tablet,delayed release (DR/EC) 81 mg PO HS Qty: 30 Trelegy Ellipta 200-62.5-25 mcg blister with device 1 inh inhalation DAILY Qty: 60 5RF naproxen sodium [Aleve] 220 mg Tablet 220 mg PO Q12H PRN (Reason: Pain) Discontinued budesonide-formoterol [Symbicort] 160-4.5 mcg/actuation HFA aerosol inhaler 2 puff INH BID Qty: 10.2 5RF ipratropium-albuterol 0.5 mg-3 mg(2.5 mg base)/3 mL solution for nebulization 3 ml inhalation QID PRN (Reason: wheezing) Qty: 180 5RF Spiriva Respimat 2.5 mcg/actuation mist 5 mcg INHALATION DAILY Qty: 4 11RF prednisone 50 mg tablet 50 mg PO DAILY 5 Days Qty: 5 0RF Rx Instructions: ORDERED 02/23/23 FOR 5 DAYS Discharge Orders: Discharge Order (Routine); Ordered 03/04/23 Ordered By: John Alford Admission Data Admit Date/Time: 02/25/23 23:39 Attending Provider: John Alford Admit Provider: Shahla Nelson Primary Care Provider: Noemy Arroyo Other Providers: Shahla Nelson ; Jackson Richardson ; [facility] Other Interventions: Discharge Summary Assessment (RN) Last Done: 03/04/23 18:08 Coding Level of Care Code 56415 INP/OBS DISCH >30 MIN Diagnoses Pneumonia J18.9 Acute exacerbation of chronic obstructive pulmonary disease (COPD) J44.1 Seizure disorder G40.909
== END 2023-03-04 19:33 | DRG 193 ==
LOC: ED 20:15 → 1E 23:39 → SUATTDRO 23:39 → 1E 23:58 → 4W 03-02 22:29

== ENCOUNTER 2023-12-05 15:45 | Inpatient (IN) ==
[2023-12-05 16:58] LABS: Basophils # (auto) 0.05 K/uL (0.00-0.20); Basophils % (auto) 0.5 %; Eosinophils # (auto) 0.15 K/uL (0.00-0.50); Eosinophils % (auto) 1.5 %; Hematocrit (blood only) 44.3 % (42.0-52.0); Hemoglobin 15.1 g/dl (14.0-18.0); Immature Granulocytes # (auto) 0.05 K/uL (0.01-0.20); Immature Granulocytes % (auto) 0.5 %; Lymphocytes # (auto) 2.26 K/uL (1.20-3.40); Lymphocytes % (auto) 23.3 %; Mean Corpuscular Hemoglobin 30.9 pg (25.0-34.0); Mean Corpuscular Hgb Conc 34.1 g/dL (32.0-36.0); Mean Corpuscular Volume 90.8 fL (80.0-100.0); Mean Platelet Volume 9.8 fL (9.4-12.4); Monocytes # (auto) 0.63 K/uL (0.11-0.59); Monocytes % (auto) 6.5 %; Neutrophils # (auto) 6.56 K/uL (1.40-6.50); Neutrophils % (auto) 67.7 %; Platelet Count 229 K/uL (130-400); RDW Standard Deviation 43.4 fL (36.4-46.3); Red Blood Count 4.88 M/uL (4.70-6.10)
[2023-12-05 17:21] LABS: Acetaminophen < 3 ug/ml (10-30); Salicylate < 3.0 mg/dl (3.0-30)
[2023-12-05 17:27] LABS: Albumin Globulin Ratio 1.5 (0.9-2); Albumin Level 4.4 gm/dl (3.4-5.0); BUN Creatinine Ratio 20.4 (10-20); Bilirubin,Total 0.5 mg/dl (0.2-1.0); Calcium 9.2 mg/dl (8.6-10.3); Creatinine Clr Calc Pharmacy 76.5 ml/min; Est GFR (African American) 84.9 ml/min; Est GFR (Non-African American) 73.3 ml/min; Globulin 2.9 gm/dl (2.5-4.0); Potassium 3.8 mmol/L (3.5-5.1); Total Protein 7.3 gm/dl (6.0-8.3)
--- NOTE | 2023-12-05 17:34 | CT Scan Report ---
HEAD CT NONCONTRAST CT DOSE: 703.85 mGy.cm HISTORY: Altered mental status. TECHNIQUE: Multiaxial CT images of the head were performed without the use of intravenous contrast. A utomated exposure control was utilized for this study. A dose lowering technique was utilized adheri ng to the principles of ALARA. Comparison: None. Findings: The paranasal sinuses and mastoid air cells are clear. The calvarium and skull base are int act. The ventricles and sulci demonstrate mild age-related involutional changes. There is no hematoma , midline shift, or acute infarct. There is a 3.2 cm slightly hyperdense extra-axial lesion within th e midline of the anterior cranial fossa. This favors a planum sphenoidale meningioma. Impression: 1. No acute infarct or intracranial hemorrhage. 2. 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 This can be confirmed with follow-up nonemergent MRI. ACT 112: Negative or not required by law. Electronically signed by: Tony Dasilva M.D. 12/05/2023 5:33 PM
[2023-12-05 17:37] LABS: Thyroid Stimulating Hormone 2.083 uIu/ml (0.300-4.500)
[2023-12-05 19:25] LABS: Appearance Urine Clear (Clear); Bilirubin Urine Negative (Negative); Blood Urine Negative (Negative); Color Urine Yellow; Glucose Urine UA Negative (Negative); Ketones Urine Negative (Negative); Leukocyte Esterase Urine Negative (Negative); Nitrite Urine Negative (Negative); Protein Urine Negative (Negative); Specific Gravity Urine 1.021 (1.000-1.030); Urobilinogen Urine Negative (Negative)
[2023-12-05 20:04] LABS: Amphetamines+Metham, Urine Neg (Neg); Barbiturates, Urine Neg (Neg); Benzodiazepine, Urine Neg (Neg); Cocaine, Urine Neg (Neg); MDMA (Ecstacy), Urine Neg (Neg); Marijuana, Urine Neg (Neg); Methadone, Urine Neg (Neg); Opiate, Urine Neg (Neg); Phencyclidine, Urine Neg (Neg)
[2023-12-05] MEDS ORDERED: MAGNESIUM HYDROXIDE SUSP 30 ML UDC PO PRN (22:11)
[2023-12-05] MEDS ORDERED: hydrOXYzine HCl 25 MG TAB PO PRN (22:11)
[2023-12-05] MEDS ORDERED: ALUMINUM/MAGNESIUM SUSP 30 ML UDC PO PRN (22:11)
[2023-12-05] MEDS ORDERED: SODIUM CHLORIDE 0.65% NA SOLN 45 ML (OCEAN) PRN (22:11)
[2023-12-05] MEDS ORDERED: BISMUTH SUBSALICYLATE LIQD 236 ML PO PRN (22:11)
[2023-12-05] MEDS ORDERED: ALBUTEROL HFA 8 GM INHALER INH PRN (22:24)
[2023-12-05] MEDS ORDERED: PHENYTOIN SODIUM ER 100 MG CAP PO SCH (22:30)
--- NOTE | 2023-12-05 23:02 | Emergency Department Note ---
History of Present Illness General Chief complaint: Mental Health Evaluation Stated complaint: MENTAL Time Seen by Provider: 12/05/23 16:00 History of Present Illness Provider complaint: Mental health evaluation 68-year-old male presents emergency department for mental health evaluation. Patient states he is "financial and lung problems". He states he has had them for multiple years. He states he is depressed about this. Patient reports he told his therapist today that he wanted to kill himself. He has brought in as a 302 by his sister. Home Medications Medication Instructions Recorded Confirmed Type Dilantin 300 mg BID 12/05/23 12/05/23 History Low-Dose Aspirin 71 mg DAILY 12/05/23 12/05/23 History Trelegy Ellipta DAILY 12/05/23 History Vitamin D3 1,000 mg DAILY 12/05/23 12/05/23 History Allergies Allergy/AdvReac Type Severity Reaction Status Date / Time phenobarbital Allergy Headache Verified 12/05/23 17:17 poison jose extract Allergy Hives Verified 12/05/23 17:17 Past Med/Surg History Medical History No pertinent family history Seizure Closed head injury Depression Surgical History No pertinent past surgical history Social History Smoking Status: Former smoker Preferred Language: Luxembourgish Feels Safe at Home: Hesitant to Answer Gender Identity: Male Physical Exam Vital Signs Vital Signs - 24 hr 12/05/23 15:55 Temperature 36.7 C Temperature Source Temporal Artery Scan Pulse Rate 54 L Respiratory Rate 18 Blood Pressure 160/94 H Blood Pressure Mean 116 Pulse Oximetry 97 Oxygen Delivery Method Room Air Sepsis New/Unexplained Change in Mental Status No Sepsis Action Taken by Nursing No Action Required Physical Exam GENERAL: oriented to person, place, and time. appears well-developed and well- nourished. HENT: Exam performed. - Head: Normocephalic and atraumatic. EYES: Conjunctivae and EOM are normal. Right eye exhibits no discharge. Left eye exhibits no discharge. No scleral icterus. NECK: Normal range of motion. Neck supple. No JVD present. CV: Normal rate, regular rhythm, normal heart sounds and intact distal pulses. There is no peripheral edema. Palpable radial pulses bue. PULM/CHEST: Effort normal and breath sounds normal. No respiratory distress. No stridor. no wheezes. no rales. ABD: The abdomen is soft. There is no tenderness. NEURO: Motor and sensation grossly intact. SKIN: Skin is warm and dry. He is not diaphoretic. PSYCH: Patient appears very angry Course Course 1600: The patient was evaluated in room A7. A complete history and physical exam was performed 2300: Vital signs stable. Labs and imaging within normal limits with the exception of a possible meningioma on CT scan. Patient medically cleared. Patient admitted to 3 S. Medical Decision Making Laboratory Data Attestation: I reviewed the patient's lab results. 12/05/23 16:30 12/05/23 16:30 Lab Results 12/05/23 12/05/23 12/05/23 Range/Units 16:30 16:54 19:03 WBC 9.70 (4.8-10.8) K/ul RBC 4.88 (4.70-6.10) M/uL Hgb 15.1 (14.0-18.0) g/dl Hct 44.3 (42.0-52.0) % MCV 90.8 (80.0-100.0) fL MCH 30.9 (25.0-34.0) pg MCHC 34.1 (32.0-36.0) g/dL RDW Std Deviation 43.4 (36.4-46.3) fL RDW Coeff of Tammi 13.0 (11.5-14.5) % Plt Count 229 (130-400) K/uL MPV 9.8 (9.4-12.4) fL Immature Gran % (Auto) 0.5 % Neut % (Auto) 67.7 % Lymph % (Auto) 23.3 % [place] % (Auto) 6.5 % Eos % (Auto) 1.5 % Baso % (Auto) 0.5 % Neut # (Auto) 6.56 H (1.40-6.50) K/uL Lymph # (Auto) 2.26 (1.20-3.40) K/uL [place] # (Auto) 0.63 H (0.11-0.59) K/uL Eos # (Auto) 0.15 (0.00-0.50) K/uL Baso # (Auto) 0.05 (0.00-0.20) K/uL Immature Gran # (Auto) 0.05 (0.01-0.20) K/uL Sodium 134 L (136-145) mmol/L Potassium 3.8 (3.5-5.1) mmol/L Chloride 99 (98-107) mmol/L Carbon Dioxide 29 (21-32) mmol/L Anion Gap 6 (3-11) BUN 21 (6-23) mg/dl Creatinine 1.03 (0.6-1.4) mg/dl Est Cr Clr Drug Dosing 76.5 ml/min Est GFR ( Amer) 84.9 ml/min Est GFR (Non-Af Amer) 73.3 ml/min BUN/Creatinine Ratio 20.4 H (10-20) Glucose 218 H (70-99(Fasting)) mg/dl Calcium 9.2 (8.6-10.3) mg/dl Total Bilirubin 0.5 (0.2-1.0) mg/dl AST 17 (13-39) U/L ALT 14 (7-52) U/L Alkaline Phosphatase 114 H (34-104) U/L Total Protein 7.3 (6.0-8.3) gm/dl Albumin 4.4 (3.4-5.0) gm/dl Globulin 2.9 (2.5-4.0) gm/dl Albumin/Globulin Ratio 1.5 (0.9-2) TSH 2.083 (0.300-4.500) uIu/ml Urine Color Yellow Urine Appearance Clear (Clear) Urine pH 6.0 (4.5-7.5) Ur Specific [place] 1.021 (1.000-1.030) Urine Protein Negative (Negative) Urine Glucose (UA) Negative (Negative) Urine Ketones Negative (Negative) Urine Blood Negative (Negative) Urine Nitrite Negative (Negative) Urine Bilirubin Negative (Negative) Urine Urobilinogen Negative (Negative) Ur Leukocyte Esterase Negative (Negative) Salicylates < 3.0 L (3.0-30) mg/dl Urine Opiates Screen Neg (Neg) Ur Methadone, Qual Neg (Neg) Acetaminophen < 3 L (10-30) ug/ml Urine Barbiturates Neg (Neg) Ur Phencyclidine (PCP) Neg (Neg) U Amphetamin/Meth Scrn Neg (Neg) MDMA (Ecstasy) Screen Neg (Neg) U Benzodiazepines Scrn Neg (Neg) Ur Cocaine Metabolite Neg (Neg) U Marijuana (THC) Screen Neg (Neg) Ethyl Alcohol mg/dL < 10.0 (<10.0) mg/dl SARS-CoV-2, RNA, NAAT NEGATIVE (NEGATIVE) Imaging Data Radiologist's Impression: Head CT 12/05/23 16:[address] DOSE: 703.85 mGy.cm HISTORY: Altered mental status. TECHNIQUE: Multiaxial CT images of the head were performed without the use of intravenous contrast. Automated exposure control was utilized for this study. A dose lowering technique was utilized adhering to the principles of ALARA. Comparison: None. Findings: The paranasal sinuses and mastoid air cells are clear. The calvarium and skull base are intact. The ventricles and sulci demonstrate mild age-related involutional changes. There is no hematoma, midline shift, or acute infarct. There is a 3.2 cm slightly hyperdense extra-axial lesion within the midline of the anterior cranial fossa. This favors a planum sphenoidale meningioma. Impression: 1. No acute infarct or intracranial hemorrhage. 2. 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 This can be confirmed with follow-up nonemergent MRI. ACT 112: Negative or not required by law. Electronically signed by: Tony Dasilva M.D. 12/05/2023 5:33 PM MDM Narrative 1600: The patient was evaluated in room A7. A complete history and physical exam was performed 2300: Vital signs stable. Labs and imaging within normal limits with the exception of a possible meningioma on CT scan. Patient medically cleared. Patient admitted to 3 S. Impression & Plan Depression with suicidal ideation, Meningioma Discharge Plan Visit Data Chief Complaint: Mental Health Evaluation Stated Complaint: MENTAL ED Provider: Garo Vazquez Discharge Problem: Depression with suicidal ideation, Meningioma Patient Disposition: Admitted As Inpatient Forms Stand Alone Forms: [facility], Suicide Prevention Resources Prescriptions Prescriptions: No Action Dilantin 300 mg BID Vitamin D3 1,000 mg DAILY Low-Dose Aspirin 71 mg DAILY Trelegy Ellipta DAILY Referrals Referrals: Noemy Arroyo CRNP [Primary Care Provider] -
[2023-12-05] MEDS: hydrOXYzine HCl 25 MG TAB PO PRN (23:26)
[2023-12-05] MEDS: ACETAMINOPHEN 325 MG TAB PO PRN (23:26)
[2023-12-06] MEDS: PHENYTOIN SODIUM ER 100 MG CAP PO SCH (00:29)
[2023-12-06] MEDS ORDERED: FLUTICASONE/VILANTEROL 100/25MCG 14 PUFFS/INHALER INH SCH (09:00)
[2023-12-06] MEDS: CHOLECALCIFEROL 25 MCG (1000 UNITS) TAB PO SCH (09:04)
[2023-12-06] MEDS: ASPIRIN 81 MG ECTAB PO SCH ×2 (09:09→21:09)
[2023-12-06] MEDS ORDERED: NON-FORMULARY MEDICATION (Fluticasone-Umeclidin-Vilanter [Trelegy Ellipta] 200-62.5-25 mcg INH SCH (09:15)
[2023-12-06] MEDS: FOLIC ACID 1 MG TAB PO SCH (11:23)
[2023-12-06] MEDS ORDERED: UMECLIDINIUM BROMIDE 62.5MCG/BLISTER 7 PUFFS/INHALER INH SCH (12:00)
[2023-12-06] MEDS ORDERED: FLUTICASONE FUROATE 200MCG 14 PUFFS/INHALER INH SCH (12:30)
[2023-12-06] MEDS ORDERED: UMECLIDINIUM/VILANTEROL 62.5/25MCG 7 PUFFS/INHALER INH SCH (12:30)
--- NOTE | 2023-12-06 13:40 | History & Physical ---
Date of Service December 06, 2023 Impression / Recommendations Impression 68 male with no formal psychiatric history, presents with rigid and socially withdrawn personality, chronic depressive mentality with intermittent intrusive suicidal thoughts since teens without treatment. He reports several reality based stressors including finances and health with some ?age or depression related decline in his executive functioning that make it harder to carry out tasks which results in self-criticism. He is resistant to continuing inpatient hospitalization but declined a 72 hr. notice. Patient's sister was contacted and expressed concerns about his safety if he were to return home today given his recent statements and [place] health [place] was reviewed by chaparrita. (1) Persistent depressive disorder: (2) COPD (chronic obstructive pulmonary disease): (3) Seizure: (4) Meningioma: Plan The patient was admitted to the [facility] ([facility] inpatient mental health unit) on q15 min checks (behavioral with suicide precautions) for safety. The patient will participate in group, recreational, and milieu therapies and will be offered additional individual and family sessions as clinically appropriate. Risks/benefits/alternatives reviewed re: antidepressants for the treatment of depression and/or anxiety. The patient agreed to a trial of an SSRI from the $[employer] formulary so although initially discussed escitalopram, citalopram 10 mg was sent. Rx will need to be cancelled if patient is discharged. The patient is in need of outpatient therapy but is not currently agreeable and availability and cost with Medicare is a concern. He signed an ANTON for a case management referral. The patient has multiple risk factors for suicide that are not modifiable such as age, sex, medical status, etc. He lives alone and must have access to his anti-seizure medication and is by choice rather socially isolated. Acute inpatient care on an involuntary basis may offer little to alter his course. Dr. Guthrie to assume clinical care of patient after 1700 hrs. and will reassess ability to discharge in am. Overall, I spent a total of 77 minutes with this case, including review of chart, direct evaluation of the patient, counseling the patient, communication with family, ordering medication, coordination with nursing, interdisciplinary team meeting, risk assessment, and documentation. Inventory Assets Strengths: med compliant, consistent attendance at pulmonary rehab Needs: increase social supports, case management Suicide Risk Level Suicide Risk Level: Moderate (q15 min suicide checks) Risk Factors Assessment Male: Yes : Yes Do You Have Access To A Gun?: No Health Problems: Yes Substance Use Disorders: No Previous Attempt: No Previous Psychiatric Hospitalization: No Protective Factors Assessment Employed: No Supportive Family: Yes (sister in [place]) Psychiatric History Identifying Data NELSON LANDRY is a 68-year-old M from [place], has no prior psych history, and was admitted on 12/05/23 22:12 on a 201 voluntary commitment for suicidal statements at pulmonary rehab. Chief Complaint "I've had thoughts for years, if I wanted to be I would have done it already". History of Present Illness Reviewed and confirmed history as per ED CM: Met with Neslon to complete psychiatric assessment. Nelson receives respiratory therapy every Saturday and for his COPD. While at therapy today, he made several suicidal statements and statements that he wanted to (see previous note with petition statement). Upon arrival to the ED, Nelson states, Just send me home, doc. No one can help my financial woes or love life. Theres nothing anyone can do for me. All I said, I made the stupid mistake of saying Id wanted to do that [kill self] since I was a child. Nelson left respiratory therapy and then spoke to Magdalena at Crisis and states that he told her he had no intention of killing himself. He was not recommended to come to the ED by Crisis, but his sister brought him here out of concern for his mental health. Nelson opened up that he feels inadequate without a woman in his life because they are smarter with finances and he feels unable to manage his own finances, leading to poor financial decisions. He states, I want things that I cannot have. Im no spring chicken. Even if I went to the right bar, I probably wouldnt be able to take anything home. He relays that he read a verse in the Bible recently that talked about long-term suffering. This has caused him to wonder if his fate is to suffer for the rest of his life. He says that he has wondered why certain things have happened to him and states, But thats life. Sometimes life can get heavy on your shoulders though. As I think back through my life and realize what I need now, its too late. This rumination of his life has admittedly led to him blaming himself for a lot of what has gone wrong in his life. He states, Im probably coming off as too depressed. He admits that he is embarrassed and ashamed to be here after saying the things he has said. He states that he feels very overwhelmed and emotionally strung out due to his love life and financial woes. Though Nelson states he has had a rough life and struggled with suicidal ideation since he was a child, he does not have any formal mental health diagnoses or inpatient psychiatric history. During our conversation, he kept r epeating that no one can fix the issues I have, you cant fix it right? It was explained to Nelson that while the fixed stressors in his life may not be able to be fixed at the hospital, inpatient treatment can benefit in different ways. Nelson admits that he is increasingly depressed and has suicidal thoughts frequently. He states that the reason he hasnt completed suicide is because he is a coward. Denies HI, AVH, SIB. Current every day smoker. Nelson states that he feels more comfortable opening up to female providers. Nelson has no outpatient psychiatric providers and is not on any mental health medication. He is dx with COPD and does not require oxygen, a seizure disorder (last seizure 2015), and hypertension which, according to his most recent PCP note, he has declined to treat. He is ambulatory and can complete his ADLs. He is agreeable to a referral to [address] [place] [address] for inpatient treatment. Today Nelson is very focussed on dose times for his medications being different from home and lack of control of his personal items while hospitalized. He implied that he has had difficulty discussing his feelings and reaching out to others by phone since his teens. He's mainly opposed to continuing with inpatient care as he does not see how "this can fix me" as his problems, particularly financial are "too big." He said that although he does not intend to harm himself in the near future, he gets overwhelmed with problem solving. 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 He has difficulty organizing his thoughts and was preoccupied and backed in to house breaking his taillight and he does not have means to get it fixed. When social work and MD attempted to problem solve with patient for both his treatment and safety planning he was help rejecting and described a long history of ways he was slighted by others on the phone, not liking how the ED offered him food when he asked, etc. He had difficulty conceptualizing his negative feelings of guilt and shame as a depressive disorder. Past Psychiatric History Previous Psych History: none Outpatient Services: none Previous Psych Admissions: none Do You Have Access To A Gun?: No History of Previous Suicide Attempt: No Past Medication Trials: none Past Head Trauma/Neuro History History of Concussion/Seizure: Yes (on dilantin) Allergies Allergy/AdvReac Type Severity Reaction Status Date / Time poison jose extract Allergy Hives Unverified 12/05/23 17:17 phenobarbital AdvReac Severe MIGRAINE/SEVERE Verified 07/30/23 13:04 PAIN Home Medications Medication Instructions Recorded Confirmed Type folic acid 1 mg tablet 1 mg PO DAILY #90 tabs 10/15/23 12/06/23 Rx albuterol sulfate 90 mcg/actuation 2 puff inhalation Q4 PRN shortness 12/06/23 12/06/23 History aerosol inhaler of breath aspirin 81 mg capsule 81 mg PO HS 12/06/23 12/06/23 History citalopram 10 mg tablet (Celexa) 10 mg PO DAILY #14 tabs 12/06/23 Rx fluticasone fur. 200 mcg-umeclid 1 inh inhalation DAILY 12/06/23 12/06/23 History 62.5 mcg-vilant 25 mcg inhalat.powder (Trelegy Ellipta) phenytoin sodium extended 100 mg 300 mg PO BID 12/06/23 12/06/23 History capsule Family History Family History of: Doesn't Know Alcohol History Hx of Alcohol Use Over the Past 12 Months: No AUDIT Total Score: 0 Smoking Use Have You Smoked or Used Tobacco Products in the Last 30 Days: Yes tobacco type: cigarettes Smoking Status: Current some day smoker Smoking packs per day: 0.5 Substance History Hx of Prescription Med Misuse Over the Past 12 Months: No Hx of Over the Counter Med Misuse Over the Past 12 Months: No Hx of Inhalent Misuse Over the Past 12 Months: No Hx of Organic Substance Use Over the Past 12 Months: No Hx of Illegal Substances/Street Drug Use Over Past 12 Months: No Problems as a Result of Past Substance Use: None Identified Personal History Living Arrangements: Home Highest Grade Completed Comment: unsure Employment Status: Retired Marital Status: Single Beliefs That Will Affect Care: None Current Legal Problems: No Patient History Medical History No pertinent family history Seizure Closed head injury Depression Noncompliance Tobacco abuse counseling Acute dyspnea Acute hypoxemic respiratory failure Bronchopneumonia due to human metapneumovirus (hMPV) COPD with emphysema Hypertension Hypercholesterolemia Depression Seizure disorder Surgical History No pertinent past surgical history Tonsillectomy planned Thrombophlebitis Family History Other Adopted Family history unknown Social History Smoking Status: Current some day smoker Tobacco Type: Cigarettes Age Started Using Tobacco: 18; packs per day: 0.25; Cigarettes Per Day: .25-2ppd; Second Hand Exposure: No; Do You Dip or Chew Tobacco: No; Hx Alcohol Use: Yes Alcohol type: beer Hx Substance Use: No Preferred Language: Dutch Communication Ability: Effective Visual Impairment: No Limitations Hearing Ability: Normal In Home Baby Sitter Required: No Beliefs That Will Affect Care: None marital status: Single Current Living Situation: Alone current occupational status: retired Feels Safe at Home: Yes Childhood Exposure to Second-Hand Smoke: Yes Diet: regular Diet Comment: Doesn't eat after 8 PM caffeine: Yes during the past year weight has: remained stable Dental Care, Regularly: No Physical Activity Frequency: 1-2 Times per Week Physical Activity Frequency Comment: weight lifting 60minutes Seatbelt Use: always Sunscreen Use: No Gender Identity: Male Assistive Devices: Glasses Review of Systems Review of Systems: All systems reviewed & are unremarkable except as noted in HPI & below Physical Exam Psychiatric: Orientation: alert and oriented x 3 Apperance: appropriately dressed and appropriately groomed Eye Contact: + fair eye contact Motor Behavior: no abnormal motor movements Speech: normal rate/rhythm/volume of speech Affect: + depressed affect Mood: + depressed mood Thought Process: + circumstantial thought process Thought Content: reality based without delusions Suicidal Thoughts: denies suicidal plan (but mentioned med OD in clinic yesterday) and denies suicidal intent; + reports suicidal thoughts (chronic, passive) Homicidal Thoughts: denies homicidal thoughts Hallucinations: no auditory hallucinations and no visual hallucinations Cognition: attention grossly intact and language grossly intact Estimated Intelligence: consistent with education level Insight: + limited insight Judgment: + limited judgement Vital Signs (Past 24 Hours): Last Vital Signs Temp 36.7 C 12/06/23 06:40 Pulse 54 L 12/06/23 06:40 Resp 16 12/06/23 06:40 BP 132/72 12/06/23 06:40 Pulse Ox 98 12/05/23 23:44 O2 Del Method Room Air 12/05/23 23:44 Exam Statement: A physical exam was performed in the ED by Dr. Vazquez for the purposes of medical clearance. I accept that physical as correct and adequate for the purposes of the inpatient physical exam. Results & Data [facility] Laboratory Results Laboratory Results - last 24 hr 12/05/23 12/05/23 12/05/23 16:30 16:54 19:03 WBC 9.70 RBC 4.88 Hgb 15.1 Hct 44.3 MCV 90.8 MCH 30.9 MCHC 34.1 RDW Std Deviation 43.4 RDW Coeff of Tammi 13.0 Plt Count 229 MPV 9.8 Immature Gran % (Auto) 0.5 Neut % (Auto) 67.7 Lymph % (Auto) 23.3 [place] % (Auto) 6.5 Eos % (Auto) 1.5 Baso % (Auto) 0.5 Neut # (Auto) 6.56 H Lymph # (Auto) 2.26 [place] # (Auto) 0.63 H Eos # (Auto) 0.15 Baso # (Auto) 0.05 Immature Gran # (Auto) 0.05 Sodium 134 L Potassium 3.8 Chloride 99 Carbon Dioxide 29 Anion Gap 6 BUN 21 Creatinine 1.03 Est Cr Clr Drug Dosing 76.5 Est GFR ( Amer) 84.9 Est GFR (Non-Af Amer) 73.3 BUN/Creatinine Ratio 20.4 H Glucose 218 H Calcium 9.2 Total Bilirubin 0.5 AST 17 ALT 14 Alkaline Phosphatase 114 H Total Protein 7.3 Albumin 4.4 Globulin 2.9 Albumin/Globulin Ratio 1.5 TSH 2.083 Urine Color Yellow Urine Appearance Clear Urine pH 6.0 Ur Specific [place] 1.021 Urine Protein Negative Urine Glucose (UA) Negative Urine Ketones Negative Urine Blood Negative Urine Nitrite Negative Urine Bilirubin Negative Urine Urobilinogen Negative Ur Leukocyte Esterase Negative Salicylates < 3.0 L Urine Opiates Screen Neg Ur Methadone, Qual Neg Acetaminophen < 3 L Urine Barbiturates Neg Ur Phencyclidine (PCP) Neg U Amphetamin/Meth Scrn Neg MDMA (Ecstasy) Screen Neg U Benzodiazepines Scrn Neg Ur Cocaine Metabolite Neg U Marijuana (THC) Screen Neg Ethyl Alcohol mg/dL < 10.0 SARS-CoV-2, RNA, NAAT NEGATIVE Current Inpatient Medications Current Inpatient Medications: Current Inpatient Medications Acetaminophen (Acetaminophen 325 Mg Tab) 650 mg PO Q4H PRN PRN Reason: Headache or Minor Fever Stop: 01/04/24 22:10 Last Admin: 12/05/23 23:26 Dose: 650 mg Al Hydrox/Mg Hydrox/Simethicone (Aluminum/Magnesium Susp 30 Ml Udc) 30 ml PO Q4H PRN PRN Reason: GI Upset Stop: 01/04/24 22:10 Albuterol (Albuterol Hfa 8 Gm Inhaler) 2 puffs INH Q4 PRN PRN Reason: wheezing Stop: 01/05/24 00:00 Aspirin (Aspirin 81 Mg Ectab) 81 mg PO HS SHANNON Stop: 01/05/24 21:59 Bismuth Subsalicylate (Bismuth Subsalicylate Liqd 236 Ml) 15 ml PO PRN PRN PRN Reason: Loose Stool Stop: 01/04/24 22:10 Citalopram Hydrobromide (Citalopram 20 Mg Tab) 10 mg PO QAM SHANNON Stop: 01/06/24 08:59 Fluticasone/Umeclidinium/Vilanterol (Fluticasone/Umeclidin/Vilanter 200-62.5-25) 1 puffs INH QDL SHANNON Stop: 01/05/24 12:29 Folic Acid (Folic Acid 1 Mg Tab) 1 mg PO QAM SHANNON Stop: 01/05/24 09:14 Last Admin: 12/06/23 11:23 Dose: 1 mg Hydroxyzine HCl (Hydroxyzine Hcl 25 Mg Tab) 50 mg PO HSZ PRN PRN Reason: Insomnia Stop: 01/04/24 22:10 Last Admin: 12/05/23 23:26 Dose: 50 mg Hydroxyzine HCl (Hydroxyzine Hcl 25 Mg Tab) 25 mg PO Q4H PRN PRN Reason: Anxiety Stop: 01/04/24 22:10 Magnesium Hydroxide (Magnesium Hydroxide Susp 30 Ml Udc) 30 ml PO DAILY PRN PRN Reason: Constipation Stop: 01/04/24 22:10 Phenytoin Sodium (Phenytoin Sodium Er 100 Mg Cap) 300 mg PO BID SHANNON Stop: 01/04/24 22:29 Last Admin: 12/06/23 09:03 Dose: 300 mg Sodium Chloride (Sodium Chloride 0.65% Na Soln 45 Ml ([place])) 1 - 2 sprays NA PRN PRN PRN Reason: Nasal Dryness/Congestion Stop: 01/04/24 22:10 Vitamin D (Cholecalciferol 25 Mcg (1000 Units) Tab) 25 mcg PO QAM SHANNON Stop: 01/05/24 08:59 Last Admin: 12/06/23 09:04 Dose: 25 mcg
[2023-12-06] MEDS: DILANTIN 300 MG PO SCH (15:18)
[2023-12-07] MEDS: CITALOPRAM 20 MG TAB PO SCH (09:04)
--- NOTE | 2023-12-07 12:41 | Discharge Summary ---
Date of Service December 07, 2023 History of Present Illness Reviewed and confirmed history as per ED CM: Met with Nelson to complete psychiatric assessment. Nelson receives respiratory therapy every Saturday and for his COPD. While at therapy today, he made several suicidal statements and statements that he wanted to (see previous note with petition statement). Upon arrival to the ED, Nelson states, Just send me home, doc. No one can help my financial woes or love life. Theres nothing anyone can do for me. All I said, I made the stupid mistake of saying Id wanted to do that [kill self] since I was a child. Nelson left respiratory therapy and then spoke to Magdalena at [facility] and states that he told her he had no intention of killing himself. He was not recommended to come to the ED by [facility], but his sister brought him here out of concern for his mental health. Nelson opened up that he feels inadequate without a woman in his life because they are smarter with finances and he feels unable to manage his own finances, leading to poor financial decisions. He states, I want things that I cannot have. Im no spring chicken. Even if I went to the right bar, I probably wouldnt be able to take anything home. He relays that he read a verse in the Bible recently that talked about long-term suffering. This has caused him to wonder if his fate is to suffer for the rest of his life. He says that he has wondered why certain things have happened to him and states, But thats life. Sometimes life can get heavy on your shoulders though. As I think back through my life and realize what I need now, its too late. This rumination of his life has admittedly led to him blaming himself for a lot of what has gone wrong in his life. He states, Im probably coming off as too depressed. He admits that he is embarrassed and ashamed to be here after saying the things he has said. He states that he feels very overwhelmed and emotionally strung out due to his love life and financial woes. Though Nelson states he has had a rough life and struggled with suicidal idea tion since he was a child, he does not have any formal mental health diagnoses or inpatient psychiatric history. During our conversation, he kept repeating that no one can fix the issues I have, you cant fix it right? It was explained to Nelson that while the fixed stressors in his life may not be able to be fixed at the hospital, inpatient treatment can benefit in different ways. Nelson admits that he is increasingly depressed and has suicidal thoughts frequently. He states that the reason he hasnt completed suicide is because he is a coward. Denies HI, AVH, SIB. Current every day smoker. Nelson states that he feels more comfortable opening up to female providers. Nelson has no outpatient psychiatric providers and is not on any mental health medication. He is dx with COPD and does not require oxygen, a seizure disorder (last seizure 2016), and hypertension which, according to his most recent PCP note, he has declined to treat. He is ambulatory and can complete his ADLs. He is agreeable to a referral to [address] [place] [address] for inpatient treatment. Today Nelson is very focussed on dose times for his medications being different from home and lack of control of his personal items while hospitalized. He implied that he has had difficulty discussing his feelings and reaching out to others by phone since his teens. He's mainly opposed to continuing with inpatient care as he does not see how "this can fix me" as his problems, particularly financial are "too big." He said that although he does not intend to harm himself in the near future, he gets overwhelmed with problem solving. 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 He has difficulty organizing his thoughts and was preoccupied and backed in to house breaking his taillight and he does not have means to get it fixed. When social work and MD attempted to problem solve with patient for both his treatment and safety planning he was help rejecting and described a long history of ways he was slighted by others on the phone, not liking how the ED offered him food when he asked, etc. He had difficulty conceptualizing his negative feelings of guilt and shame as a depressive disorder. Physical Exam Psychiatric Patient was alert and oriented x 3. He was clean and well-groomed. Eye contact was good. Speech was normal. Mood was depressed. Affect was restricted, brightened at times. Thought process was logical and goal-directed, talking about several things happening in his future. There was no evidence of any hallucinations or delusions. Patient denied any suicidal or homicidal thoughts. Memory was good. No abnormal movements were seen. Gait was normal. Insight and judgment are improved. Vital Signs (Past 24 Hours) Last Vital Signs Temp 36.5 C 12/07/23 06:37 Pulse 56 L 12/07/23 06:38 Resp 16 12/07/23 06:37 BP 131/72 12/07/23 06:38 Pulse Ox 98 12/05/23 23:44 O2 Del Method Room Air 12/05/23 23:44 Principal Diagnosis Persistent Depressive Disorder Psychiatric Data Patient was admitted here for safety, further evaluation, and treatment. He was somewhat reluctant to take part in the therapeutic milieu, but he did open up and discuss when meeting with staff privately. Dr. Rea started the patient on citalopram to try to help with depressive symptoms. I reviewed the uses, side effects, and time course and he gave informed consent. His sister obviously cares about him a lot. However, he feels that she often will "mother" him too much. We talked about some strategies for how to approach that with his sister in a way that is not going to blow up in his face. We also talked about the value of psychotherapy and case management. Day of Discharge Assessment Today the patient voices readiness for discharge. They note improvement in mood and deny thoughts to harm self or others. Thoughts remain organized and they are improved from admission. There is no evidence of psychosis. They agree to take mediations as prescribed and keep follow-up appointments. They are stable for discharge to outpatient level of care. Transition of Care Transition Of Care Record: was reviewed with the patient Advance Directives Advance Directives Information Provided: Yes Advance Directives: No Mental Health Advance Directive: No Advance Directives on File: No Living Will: No Power of Reception Clerk: No Advance Directives Reason:: Declines as Mental Health Visit. Suicide Risk Level Suicide Risk Level Comments: At this time, I do not feel the patient is in acute danger to himself or others. He is thinking about his future and has some hope. Risk Factors Assessment Male: Yes : Yes Do You Have Access To A Gun?: No Health Problems: Yes Mental Health Diagnoses: Yes Substance Use Disorders: No Previous Attempt: No Previous Psychiatric Hospitalization: No Hopelessness: No Protective Factors Assessment Employed: No Supportive Family: Yes (sister in [place]) Discharge Data Lab Results 12/05/23 12/05/23 12/05/23 16:30 16:54 19:03 WBC 9.70 RBC 4.88 Hgb 15.1 Hct 44.3 MCV 90.8 MCH 30.9 MCHC 34.1 RDW Std Deviation 43.4 RDW Coeff of Tammi 13.0 Plt Count 229 MPV 9.8 Immature Gran % (Auto) 0.5 Neut % (Auto) 67.7 Lymph % (Auto) 23.3 [place] % (Auto) 6.5 Eos % (Auto) 1.5 Baso % (Auto) 0.5 Neut # (Auto) 6.56 H Lymph # (Auto) 2.26 [place] # (Auto) 0.63 H Eos # (Auto) 0.15 Baso # (Auto) 0.05 Immature Gran # (Auto) 0.05 Sodium 134 L Potassium 3.8 Chloride 99 Carbon Dioxide 29 Anion Gap 6 BUN 21 Creatinine 1.03 Est Cr Clr Drug Dosing 76.5 Est GFR ( Amer) 84.9 Est GFR (Non-Af Amer) 73.3 BUN/Creatinine Ratio 20.4 H Glucose 218 H Calcium 9.2 Total Bilirubin 0.5 AST 17 ALT 14 Alkaline Phosphatase 114 H Total Protein 7.3 Albumin 4.4 Globulin 2.9 Albumin/Globulin Ratio 1.5 TSH 2.083 Urine Color Yellow Urine Appearance Clear Urine pH 6.0 Ur Specific [place] 1.021 Urine Protein Negative Urine Glucose (UA) Negative Urine Ketones Negative Urine Blood Negative Urine Nitrite Negative Urine Bilirubin Negative Urine Urobilinogen Negative Ur Leukocyte Esterase Negative Salicylates < 3.0 L Urine Opiates Screen Neg Ur Methadone, Qual Neg Acetaminophen < 3 L Urine Barbiturates Neg Ur Phencyclidine (PCP) Neg U Amphetamin/Meth Scrn Neg MDMA (Ecstasy) Screen Neg U Benzodiazepines Scrn Neg Ur Cocaine Metabolite Neg U Marijuana (THC) Screen Neg Ethyl Alcohol mg/dL < 10.0 SARS-CoV-2, RNA, NAAT NEGATIVE Hospital Course (1) Persistent depressive disorder: (2) COPD (chronic obstructive pulmonary disease): (3) Seizure: (4) Meningioma: Plan Patient will continue with his medication and take it reliably. We also have him set up for case management. Unfortunately, because he is discharging on the weekend, we were not able to set up an individual psychotherapy session. He does have an appointment set up for primary care to follow-up with his medication. We also discussed a crisis plan. Today I spent 40 minutes on the case. This included meeting with the patient, reviewing the chart, reviewing the checkout notes from Dr. Olivo, nursing report, a multidisciplinary meeting with staff, orders, and documentation. Mental Health & Subst Abuse Tx Therapist Name of Therapist: N/A Program Attendant Name of Program Attendant: [facility] (Blended Case Management) Phone Number for Program Attendant: Case Management Appointment Comment: They will call you to complete intake. Post Discharge Appointments Primary Care Physician Name Of Family Doctor/PCP: [facility] Date of Future Appointment with PCP: 12/11/23 Time of Appointment with PCP: 2:00 pm Provider Appointment Comment: [address] [place] [address] Antoni Pierce [phone] Contact Information Discharge Discharge [address]: [address] [place] [address] Antoni Flores [id number] Discharge Plan Discharge Items Patient Disposition: Home - Self-Care Reason For Visit: MHE Discharge Diagnosis: persistent depressive disorder Activity: Resume your previous activity Non-emergency contact: Primary Care Provider and Fire Loss Prevention Engineer Call non-emergency contact if: you have any medication questions and your symptoms worsen Follow-up/Referrals: Noemy Arroyo CRNP [Primary Care Provider] - Diet: Regular Addtl Attending Provider Instructions: SPECIAL CARE INSTRUCTIONS: 1. Follow through with your scheduled aftercare appointments. If unable to keep an appointment, please call to reschedule. 2. Take your medication only as prescribed. Medication should not be changed or stopped without the approval of your doctor. In the event of worsening symptoms or concerns about side effects, contact your doctor immediately. 3. Utilize new healthy coping skills, anger management skills, and stress management skills learned during your hospitalization. Journal feelings and process them with a support person. Identify stressors or situations that may result in relapse, deterioration or inappropriate behaviors and develop a plan to deal with those issues. 4. If your coping skills are ineffective and you are in crisis, contact your outpatient providers for direction. If unable to reach your providers, please call the [facility] CRISIS LINE AT , go to the [facility] walk-in center at [address] [place] [address], [address], [place], or go to the closest Emergency Room. 5. Avoid alcohol and un-prescribed drugs. 6. You have been provided with the Mental Health Advance Directives Pamphlet for your review. 7. Your condition is stable for discharge to outpatient level of care, but recovery is an ongoing process. Ifthoughts to harm yourself or others return, follow the safety plan developed during your stay. Planning for a safe return home includes securing weapons. Our treatment team recommends weaponsbe removed from the home until your outpatient provider reassesses your progress. In rare cases where the items themselvescannot be removed, guns and ammunitionshould be secured separatelyand keys stored by a reliable personoutside of the home. If you were admitted on an involuntary commitment, the police or other legal authorities may be involved in this process. AFTERCARE APPOINTMENTS: * Please call your insurance company prior to your scheduled appointment to confirm your aftercare providers are covered. Take your insurance information to your appointments. WHO TO CALL AND WHEN: Medical Emergencies: For questions or emergencies related to your hospital stay, please contact the Inpatient Behavioral Health Unit at [phone]. A experimental display builder is on-call 06/05 for the Behavioral Health Unit for emergencies At any time you feel your situation is an emergency, you may also call 911 immediately. Pending Studies at Discharge: No Stand-Alone Forms: My [facility], Smoking Cessation Medications and DC Order Prescriptions: New citalopram [Celexa] 10 mg tablet 10 mg PO DAILY Qty: 14 0RF Continued folic acid 1 mg tablet 1 mg PO DAILY Qty: 90 3RF Trelegy Ellipta 200-62.5-25 mcg blister with device 1 inh INHALATION DAILY albuterol sulfate 90 mcg/actuation HFA aerosol inhaler 2 puff INHALATION Q4 PRN (Reason: shortness of breath) phenytoin sodium extended 100 mg capsule 300 mg PO BID aspirin 81 mg Capsule 81 mg PO HS Discharge Orders: Discharge Order (Routine); Ordered 12/07/23 Ordered By: Cj Buck/Other Patient Handouts: Depression Suicide Seniors Admission Data Admit Date/Time: 12/05/23 22:12 Attending Provider: Jennifer Oilvo Admit Provider: Jennifer Olivo Primary Care Provider: Noemy Arroyo Other Interventions: ALESSANDROY Interdisciplinary Discharge Planning Last Done: 12/06/23 12:18 Coding Level of Care Code 07931 D/C day mgmt > 30 min Diagnoses Persistent depressive disorder F34.1 COPD (chronic obstructive pulmonary disease) J44.9 Seizure R56.9 Meningioma D32.9 Time Spent (min) 40
[2023-12-07] MEDS: VILANTER INH SCH (12:54)
[2023-12-07] MEDS: FLUTICASONE INH SCH (12:54)
[2023-12-07] MEDS: UMECLIDIN INH SCH (12:54)
== END 2023-12-07 14:30 | disposition home or self-care (01) | DRG 881 ==
LOC: ED 15:45 → EDUNIT# 22:12 → 3S 22:12

== ENCOUNTER 2024-01-22 13:37 | Inpatient (IN) ==
--- NOTE | 2024-01-22 14:04 | ED Triage Note ---
Date of Service January 22, 2024 Provider in Triage Author: Sarah Brannon History of Present Illness This patient was briefly evaluated while in triage. An abbreviated physical exam was performed. This patient is a 68-year-old Male who presents to the ED for evaluation of dizziness and nausea x 1 week. He describes it like the room is spinning around and reports trouble walking. He denies chest pain or shortness of breath. Physical Exam GENERAL: Non-toxic and in no acute distress. HEENT: Pupils equal. No obvious scleral icterus. HEART: Regular rate and rhythm. LUNGS: Clear to auscultation. No accessory muscle use. NEURO: Alert and oriented. No obvious neurological deficits on quick neuro exam. Initial orders for labs and / or imaging were placed and patient was placed in the waiting area until a bed is available. Please see further documentation for the full ED course.
[2024-01-22 15:43] LABS: Basophils # (auto) 0.05 K/uL (0.00-0.20); Basophils % (auto) 0.6 %; Eosinophils # (auto) 0.22 K/uL (0.00-0.50); Eosinophils % (auto) 2.6 %; Hematocrit (blood only) 45.3 % (42.0-52.0); Hemoglobin 15.1 g/dl (14.0-18.0); Immature Granulocytes # (auto) 0.04 K/uL (0.01-0.20); Immature Granulocytes % (auto) 0.5 %; Lymphocytes # (auto) 1.45 K/uL (1.20-3.40); Lymphocytes % (auto) 16.9 %; Mean Corpuscular Hemoglobin 30.9 pg (25.0-34.0); Mean Corpuscular Hgb Conc 33.3 g/dL (32.0-36.0); Mean Corpuscular Volume 92.6 fL (80.0-100.0); Mean Platelet Volume 9.4 fL (9.4-12.4); Monocytes # (auto) 0.52 K/uL (0.11-0.59); Neutrophils # (auto) 6.32 K/uL (1.40-6.50); Neutrophils % (auto) 73.4 %; Platelet Count 240 K/uL (130-400); RDW Coefficient of Variation 13.1 % (11.5-14.5); RDW Standard Deviation 44.5 fL (36.4-46.3); Red Blood Count 4.89 M/uL (4.70-6.10)
[2024-01-22 16:03] LABS: Alanine Aminotransferase 16 U/L (7-52); Albumin Globulin Ratio 1.5 (0.9-2); Albumin Level 4.6 gm/dl (3.4-5.0); Alkaline Phosphatase 120 U/L (34-104); Anion Gap 4 (3-11); Aspartate Aminotransferase 19 U/L (13-39); BUN Creatinine Ratio 27.8 (10-20); Bilirubin,Total 0.4 mg/dl (0.2-1.0); Blood Urea Nitrogen 27 mg/dl (6-23); Calcium 9.6 mg/dl (8.6-10.3); Carbon Dioxide 31 mmol/L (21-32); Chloride 103 mmol/L (98-107); Est GFR (African American) 91.3 ml/min; Est GFR (Non-African American) 78.8 ml/min; Globulin 3.1 gm/dl (2.5-4.0); Glucose 103 mg/dl (70-99(Fasting)); Magnesium 2.3 mg/dl (1.7-2.4); Potassium 4.7 mmol/L (3.5-5.1); Sodium 138 mmol/L (136-145); Total Protein 7.7 gm/dl (6.0-8.3)
[2024-01-22 16:09] LABS: Troponin I High Sensitivity 2.9 pg/ml (0-20)
[2024-01-22 16:14] LABS: INR 1.1 (0.9-1.1); Partial Thromboplastin Ratio 1.2; Partial Thromboplastin Time 34 Seconds (21-31); Prothrombin Time 11.6 Seconds (9.0-12.0)
[2024-01-22] MEDS: OPTIRAY 320 125ml IV ONE (16:29)
--- NOTE | 2024-01-22 16:50 | CT Scan Report ---
NECK CTA HISTORY: Dizziness TECHNIQUE: Multiaxial CT images of the neck were performed following the intravenous administration o f contrast to evaluate the major cervical vessels. 3D/MIP images were also obtained. Sagittal and cor onal reformats were reviewed. All measurements were calculated based on NASCET criteria. A dose low ering technique was utilized adhering to the principles of ALARA. COMPARISON STUDY: None. FINDINGS: The aortic arch and proximal great vessels are widely patent. There is no significant sten osis, occlusion, or dissection identified within the bilateral common carotid, internal carotid, or v ertebral arteries. Emphysema. Hypoplastic right vertebral artery in comparison to the left. Mild calc ified plaque within the bilateral carotid bifurcations. IMPRESSION: No significant stenosis, occlusion, or dissection identified within the carotid or vertebral arteries . ACT 112: Negative or not required by law. Electronically signed by: Tony Dasilva M.D. 01/22/2024 4:48 PM
--- NOTE | 2024-01-22 16:50 | CT Scan Report ---
CT OF THE HEAD WITHOUT CONTRAST CLINICAL HISTORY: Dizziness. COMPARISON STUDY: MRI of the brain June 14, 2021. Head CT December 05, 2023. TECHNIQUE: Helical axial images of the head were obtained without IV contrast. Automated exposure con trol was utilized for the study. A dose lowering technique was utilized adhering to the principles o f ALARA. FINDINGS: No acute intracranial hemorrhage is present. A 3.5 cm hyperdense extra-axial midline lesion along the cribriform plate is similar to CT of December 05, 2023. This has significantly increased i n size since MRI of June 14, 2011. Jugular system is stable. Basal cisterns are patent. There are no extra axial collections. There are no findings to suggest acute dural sinus thrombosis or acute t erritorial infarct. There are no calvarial fractures. Mild sinus mucosal thickening is present. IMPRESSION: 1. No acute intracranial findings. 2. 3.5 cm hyperdense extra-axial midline lesion along the cribriform plate, similar to CT of December 05, 2023. This has significantly increased in size since MRI of the right first 2010. 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 ACT 112: Negative or not required by law. Electronically signed by: Juan Dominguez M.D. 01/22/2024 4:48 PM
--- NOTE | 2024-01-22 17:05 | CT Scan Report ---
CTA ANGIOGRAPHY OF THE HEAD CLINICAL HISTORY: Dizziness. COMPARISON STUDY: MRI of the brain June 14, 2011. Head CT December 05, 2023. TECHNIQUE: Helical axial images of the head were obtained following uneventful intravenous administr ation of 118 cc of Optiray. Sagittal and coronal reconstructions were viewed as well as maximal inten sity projections on an independent 3-D workstation. Automated exposure control was utilized for the study. A dose lowering technique was utilized adhering to the principles of ALARA. CT DOSE: 1151.05 mGy.cm FINDINGS: No acute intracranial hemorrhage is identified. Jugular system is unremarkable. Basal ciste rns are patent. An enhancing 3.6 cm extra-axial midline lesion overlying the cribriform plate is note d. This is unchanged December 05, 2023. The bilateral M1, M2, A1 and A2 segments are patent. No intra cranial aneurysm. Left vertebral artery is dominant. The right vertebral artery is diminutive on a co ngenital basis. No central vessel occlusion is identified. IMPRESSION: 1. No central vessel occlusion. No intracranial aneurysm. 2. 3.6 cm enhancing extra-axial midline lesion overlying the cribriform plate. 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 This is similar to CT of December 07, 2023 and significantly increase d in size since MRI June 14, 2011. ACT 112: Negative or not required by law. Electronically signed by: Juan Dominguez M.D. 01/22/2024 5:02 PM
--- NOTE | 2024-01-22 20:01 | Emergency Department Note ---
Impression & Plan Dizziness, Ambulatory dysfunction ED Provider Note HISTORY OF PRESENT ILLNESS: Patient is a 68-year-old male presenting with dizziness. Patient reports for the last week he has been very dizzy and "walking like a drunken electrical instrument maker." He reports that he has been having to hold onto busch and objects in his house in order to ambulate anywhere. He reports that he has been crawling on his hands and knees through the grass in his front yard to get to his mailbox because he is so dizzy. Denies any recent falls. Denies any head injury or chiropractic manipulation of his neck. He is on Dilantin for history of epilepsy. He denies any recent changes in his medications. He denies any anticoagulation use. He denies any chest pain or shortness of breath with the dizziness. He denies any changes in vision. He does report some nausea with the dizziness. He states that he occasionally feels like the room is spinning, but mostly that he is unsteady on his feet. Denies any other changes in medications. Denies any recent fevers. ROS: as above PHYSICAL EXAM: Constitutional: Patient appears in no acute distress. HENT: Head: Normocephalic and atraumatic. Eyes: EOMI, PERRL Mouth/Throat: Mucous membranes moist. Neck: Trachea midline. Neck supple. Cardiovascular: Bradycardic with regular rhythm. No murmurs, rubs or gallops. Intact distal pulses. Pulmonary/Chest: No respiratory distress. Breath sounds clear and equal bilaterally. No wheezes or rales. Abdominal: Abdomen soft, no tenderness, rebound or guarding. Musculoskeletal: No edema, tenderness or deformity noted. Skin: Warm and dry. No rash, erythema, pallor or cyanosis Psychiatric: Appropriate mood and affect for situation. Neurological: Alert and keenly responsive. Facies symmetric. Able to raise eyebrows, close eyes, smile, puff mouth, stick out tongue, move tongue left and right and raise palate symmetrically. Able to shrug shoulders. PERRLA. SILT to forehead below eye and at jawline. Can hear soft noise bilaterally. Strength 5/5 in bilateral upper and lower extremities. SILT throughout bilateral upper and lower extremities. MDM: - Vitals signs showed hypertension and bradycardia. - History obtained via patient. History as above. - Chronic conditions affecting care: HTN; HLD; epilepsy - Differential diagnoses include, but are not limited to: CVA; intracranial hemorrhage; dysrhythmia; ACS; pneumonia; electrolyte abnormality - Order placed for continuous cardiac monitoring. At this time, monitor showed rate of 50 bpm with normal sinus rhythm, per my interpretation. - External medical records reviewed. Primary care visit note dated 12/11/2023 was reviewed. Patient follows in their clinic for his persistent depressive disorder and was started on Celexa 10 mg at that time. - EKG interpreted by myself showed normal sinus rhythm. Rate bradycardic at 49 bpm. QT 452. No acute ischemic changes. - Laboratory workup interpreted by myself showed normal WBC; stable electrolytes; normal troponin - CT head wo contrast showed "a 3.5 cm hyperdense extra-axial midline lesion along the cribriform plate" that has increased in size since 2010. - CTA head/neck showed the hyperdense extra-axial lesion, but no vascular pathology. - Discussed case with [facility] neurologist commercial front load driver, Dr. Aviva Romero at 20:06. Discussed patient's CT findings. She was in agreement that his meningioma is unlikely to be the source for his episodes of dizziness. Recommended that if the patient cannot walk, he likely needs PT/OT assessment and needs to be admitted. Recommended that if the patient did not want to be admitted, then workup can be done as outpatient setting given a week of symptoms. - Discussed options with the patient. He did ambulate in the emergency department in his examination room, but was taking very small shuffling steps and was holding onto multiple things in order to get across the room. - Discussion was had with spring encaser about patient's case and need for admission - Hospitalist consulted for admission for PT/OT assessment - [facility] ASSESSMENT AND PLAN: Diagnosis: dizziness; ambulatory dysfunction Plan: admit Past Med/Surg History Medical History No pertinent family history Seizure Closed head injury Depression Noncompliance Tobacco abuse counseling Acute dyspnea Acute hypoxemic respiratory failure Bronchopneumonia due to human metapneumovirus (hMPV) COPD with emphysema Hypertension Hypercholesterolemia Depression Seizure disorder Surgical History No pertinent past surgical history Tonsillectomy planned Thrombophlebitis Family History Other Adopted Family history unknown Social History (Updated 12/11/23 @ 13:59 by Suzanne Parsons LPN) Smoking Status: Never smoker Tobacco Type: Cigarettes Age Started Using Tobacco: 18; packs per day: 0.25; Cigarettes Per Day: .25-2ppd; Second Hand Exposure: No; Do You Dip or Chew Tobacco: No; Hx Alcohol Use: Yes Alcohol type: beer Hx Substance Use: No Preferred Language: Bahraini Communication Ability: Effective Visual Impairment: No Limitations Hearing Ability: Normal Head Tennis Professional Required: No Beliefs That Will Affect Care: None marital status: Single Current Living Situation: Alone current occupational status: retired Feels Safe at Home: Yes Childhood Exposure to Second-Hand Smoke: Yes Diet: regular Diet Comment: Doesn't eat after 8 PM caffeine: Yes during the past year weight has: remained stable Dental Care, Regularly: No Physical Activity Frequency: Does not Exercise Physical Activity Frequency Comment: weight lifting 60minutes Seatbelt Use: always Sunscreen Use: No Gender Identity: Male Assistive Devices: Glasses Allergies Allergies Allergy/AdvReac Type Severity Reaction Status Date / Time poison jose extract Allergy Hives Unverified 12/11/23 13:53 phenobarbital AdvReac Severe MIGRAINE/SEVERE Verified 12/11/23 13:53 PAIN Home Meds Home Medications Medication Instructions Recorded Confirmed albuterol sulfate 90 mcg/actuation 2 puff inhalation Q4 PRN shortness 12/06/23 01/22/24 aerosol inhaler of breath aspirin 81 mg capsule 81 mg PO HS 12/06/23 01/22/24 fluticasone fur. 200 mcg-umeclid 1 inh inhalation DAILY 12/06/23 01/22/24 62.5 mcg-vilant 25 mcg inhalat.powder (Trelegy Ellipta) phenytoin sodium extended 100 mg 300 mg PO BID 12/06/23 01/22/24 capsule Previous Rx's Medication Instructions Recorded folic acid 1 mg tablet 1 mg PO DAILY #90 tabs 10/15/23 citalopram 10 mg tablet (Celexa) 10 mg PO DAILY #90 tabs 12/11/23 Results & Data (ED) Vital Signs Vital Signs - 24 hr 01/22/24 14:00 01/22/24 18:20 01/22/24 18:27 Temperature 36.6 C Temperature Source Temporal Artery Scan Pulse Rate 51 L 49 L Pulse Rate [Apical] 46 L Respiratory Rate 21 18 Respiratory Effort / Characteristics Non-Labored Spontaneous Respiratory Depth Normal Respiratory Pattern Regular Blood Pressure 121/74 Blood Pressure [Right Arm] 176/104 H Blood Pressure Mean 89 Blood Pressure Mean [Right Arm] 128 Blood Pressure Position [Right Arm] Semi-fowlers Pulse Oximetry 96 94 Oxygen Delivery Method Room Air Sepsis Recent Fever Within 48 Hours No Sepsis New/Unexplained Change in Mental Status No Sepsis Action Taken by Nursing No Action Required 01/22/24 19:00 01/22/24 19:20 01/22/24 20:00 Temperature Temperature Source Pulse Rate Pulse Rate [Apical] 47 L 51 L Respiratory Rate 18 18 Respiratory Effort / Characteristics Non-Labored Spontaneous Non-Labored Spontaneous Respiratory Depth Normal Normal Respiratory Pattern Regular Regular Blood Pressure Blood Pressure [Right Arm] 160/84 H 160/82 H Blood Pressure Mean Blood Pressure Mean [Right Arm] 109 108 Blood Pressure Position [Right Arm] Semi-fowlers Semi-fowlers Pulse Oximetry 98 Oxygen Delivery Method Room Air Room Air Room Air Sepsis Recent Fever Within 48 Hours Sepsis New/Unexplained Change in Mental Status Sepsis Action Taken by Nursing 01/22/24 21:00 Temperature Temperature Source Pulse Rate Pulse Rate [Apical] 52 L Respiratory Rate 18 Respiratory Effort / Characteristics Non-Labored Spontaneous Respiratory Depth Normal Respiratory Pattern Regular Blood Pressure Blood Pressure [Right Arm] 139/84 Blood Pressure Mean Blood Pressure Mean [Right Arm] 102 Blood Pressure Position [Right Arm] Semi-fowlers Pulse Oximetry 100 Oxygen Delivery Method Room Air Sepsis Recent Fever Within 48 Hours Sepsis New/Unexplained Change in Mental Status Sepsis Action Taken by Nursing Laboratory Data 01/22/24 15:27 01/22/24 15:27 Lab Results 01/22/24 Range/Units 15:27 WBC 8.60 (4.8-10.8) K/ul RBC 4.89 (4.70-6.10) M/uL Hgb 15.1 (14.0-18.0) g/dl Hct 45.3 (42.0-52.0) % MCV 92.6 (80.0-100.0) fL MCH 30.9 (25.0-34.0) pg MCHC 33.3 (32.0-36.0) g/dL RDW Std Deviation 44.5 (36.4-46.3) fL RDW Coeff of Tammi 13.1 (11.5-14.5) % Plt Count 240 (130-400) K/uL MPV 9.4 (9.4-12.4) fL Immature Gran % (Auto) 0.5 % Neut % (Auto) 73.4 % Lymph % (Auto) 16.9 % Bay % (Auto) 6.0 % Eos % (Auto) 2.6 % Baso % (Auto) 0.6 % Neut # (Auto) 6.32 (1.40-6.50) K/uL Lymph # (Auto) 1.45 (1.20-3.40) K/uL Bay # (Auto) 0.52 (0.11-0.59) K/uL Eos # (Auto) 0.22 (0.00-0.50) K/uL Baso # (Auto) 0.05 (0.00-0.20) K/uL Immature Gran # (Auto) 0.04 (0.01-0.20) K/uL PT 11.6 (9.0-12.0) Seconds INR 1.1 (0.9-1.1) APTT 34 H (21-31) Seconds PTT Ratio 1.2 Sodium 138 (136-145) mmol/L Potassium 4.7 (3.5-5.1) mmol/L Chloride 103 (98-107) mmol/L Carbon Dioxide 31 (21-32) mmol/L Anion Gap 4 (3-11) BUN 27 H (6-23) mg/dl Creatinine 0.97 (0.6-1.4) mg/dl Est Cr Clr Drug Dosing Not Reportable Est GFR ( Amer) 91.3 ml/min Est GFR (Non-Af Amer) 78.8 ml/min BUN/Creatinine Ratio 27.8 H (10-20) Glucose 103 H (70-99(Fasting)) mg/dl Calcium 9.6 (8.6-10.3) mg/dl Magnesium 2.3 (1.7-2.4) mg/dl Total Bilirubin 0.4 (0.2-1.0) mg/dl AST 19 (13-39) U/L ALT 16 (7-52) U/L Alkaline Phosphatase 120 H (34-104) U/L Troponin I High Sens 2.9 (0-20) pg/ml Total Protein 7.7 (6.0-8.3) gm/dl Albumin 4.6 (3.4-5.0) gm/dl Globulin 3.1 (2.5-4.0) gm/dl Albumin/Globulin Ratio 1.5 (0.9-2) Administered Medications Discontinued Medications Ioversol (Optiray 320 125ml) 118 ml IV ONCE ONE Stop: 01/22/24 16:29 Last Admin: 01/22/24 16:29 Dose: 118 ml Documented By: PLW Imaging Data Radiologist's Impression: Head CT 01/22/24 14:06 CT OF THE HEAD WITHOUT CONTRAST CLINICAL HISTORY: Dizziness. COMPARISON STUDY: MRI of the brain June 14, 2021. Head CT December 05, 2023. TECHNIQUE: Helical axial images of the head were obtained without IV contrast. Automated exposure control was utilized for the study. A dose lowering technique was utilized adhering to the principles of ALARA. FINDINGS: No acute intracranial hemorrhage is present. A 3.5 cm hyperdense extra-axial midline lesion along the cribriform plate is similar to CT of December 05, 2023. This has significantly increased in size since MRI of June 14, 2011. Jugular system is stable. Basal cisterns are patent. There are no extra axial collections. There are no findings to suggest acute dural sinus thrombosis or acute territorial infarct. There are no calvarial fractures. Mild sinus mucosal thickening is present. IMPRESSION: 1. No acute intracranial findings. 2. 3.5 cm hyperdense extra-axial midline lesion along the cribriform plate, similar to CT of December 05, 2023. This has significantly increased in size since MRI of the right first 2010. 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 ACT 112: Negative or not required by law. Electronically signed by: Juan Dominguez M.D. 01/22/2024 4:48 PM Head CTA 01/22/24 14:06 CTA ANGIOGRAPHY OF THE HEAD CLINICAL HISTORY: Dizziness. COMPARISON STUDY: MRI of the brain June 14, 2011. Head CT December 05, 2023. TECHNIQUE: Helical axial images of the head were obtained following uneventful intravenous administration of 118 cc of Optiray. Sagittal and coronal reconstructions were viewed as well as maximal intensity projections on an independent 3-D workstation. Automated exposure control was utilized for the study. A dose lowering technique was utilized adhering to the principles of ALARA. CT DOSE: 1151.05 mGy.cm FINDINGS: No acute intracranial hemorrhage is identified. Jugular system is unremarkable. Basal cisterns are patent. An enhancing 3.6 cm extra-axial midline lesion overlying the cribriform plate is noted. This is unchanged December 05, 2023. The bilateral M1, M2, A1 and A2 segments are patent. No intracranial aneurysm. Left vertebral artery is dominant. 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 No central vessel occlusion is identified. IMPRESSION: 1. No central vessel occlusion. No intracranial aneurysm. 2. 3.6 cm enhancing extra-axial midline lesion overlying the cribriform plate. 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 This is similar to CT of December 07, 2023 and significantly increased in size since MRI June 14, 2011. ACT 112: Negative or not required by law. Electronically signed by: Juan Dominguez M.D. 01/22/2024 5:02 PM Neck CTA 01/22/24 14:06 NECK CTA HISTORY: Dizziness TECHNIQUE: Multiaxial CT images of the neck were performed following the intravenous administration of contrast to evaluate the major cervical vessels. 3D/MIP images were also obtained. Sagittal and coronal reformats were reviewed. All measurements were calculated based on NASCET criteria. A dose lowering technique was utilized adhering to the principles of ALARA. COMPARISON STUDY: None. FINDINGS: The aortic arch and proximal great vessels are widely patent. There is no significant stenosis, occlusion, or dissection identified within the bilateral common carotid, internal carotid, or vertebral arteries. Emphysema. Hypoplastic right vertebral artery in comparison to the left. Mild calcified plaque within the bilateral carotid bifurcations. IMPRESSION: No significant stenosis, occlusion, or dissection identified within the carotid or vertebral arteries. ACT 112: Negative or not required by law. Electronically signed by: Tony Dasilva M.D. 01/22/2024 4:48 PM Discharge Plan Visit Data Chief Complaint: Dizziness Stated Complaint: DIZZINESS FOR 1 WEEK, NAUSEA, REF BY DOC ED Provider: Rosie Ni Discharge Problem: Dizziness, Ambulatory dysfunction Forms Stand Alone Forms: [facility] [employer] Prescriptions Prescriptions: No Action folic acid 1 mg tablet 1 mg PO DAILY Qty: 90 3RF citalopram [Celexa] 10 mg tablet 10 mg PO DAILY Qty: 90 3RF Trelegy Ellipta 200-62.5-25 mcg blister with device 1 inh INHALATION DAILY albuterol sulfate 90 mcg/actuation HFA aerosol inhaler 2 puff INHALATION Q4 PRN (Reason: shortness of breath) phenytoin sodium extended 100 mg capsule 300 mg PO BID aspirin 81 mg Capsule 81 mg PO HS Referrals Referrals: Noemy Arroyo CRNP [Primary Care Provider] -
[2024-01-22] MEDS ORDERED: PHENYTOIN 100 MG/4 ML UDP PO SCH (22:00)
[2024-01-22] MEDS: PHENYTOIN SODIUM ER 100 MG CAP PO SCH (22:24)
--- NOTE | 2024-01-22 22:59 | History & Physical Report ---
Date of Service January 22, 2024 Assessment & Plan (1) Ambulatory dysfunction: Plan: 68yo male with ambulatory dysfunction, dizziness and some visual disturbance. -Observation to medical -Check orthostatic VS x 1 -Meclizine PRN -PT/OT evaluation (2) Dizziness: (3) Seizure: Plan: Chronic. Patient reports he hasn't had a seizure for years -Continue Dilantin (4) Depression: Plan: Chronic. Stable -Continue Citalopram (5) COPD (chronic obstructive pulmonary disease): Plan: No cough,, SOB or wheeze. Adequate oxygenation on room air -Continue Umeclidinium/Vilanterol -Albuterol PRN History of Present Illness Chief Complaint: generalized weakness and ambulatory dysfunction Primary Care Provider: CL Rosario i a 68yo male with history of meningioma, seizure disorder, depression, COPD, HTN, HLP presenting with ambulatory dysfunction. Patient lives alone in a trailer in [place]. He reports over the last week he has had difficulty ambulating due to dizziness. 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 His symptoms start when he changes position - goes from sitting to standing. He has started to get up more slowly but is still having the symptoms. He reports his "body doesn't want to cooperate" and he ends up feeling very unsteady, using the wall to support him as he walks. He reports that he doesn't necessarily feel vertigo. He did have some tinnitus before this occurred. Denies hearing loss. His vision is not blurry but is "shaking" and things "seem like they're bouncing". He has had some nausea. Otherwise no complaints - denies fever, chills, recent illness, chest pain, palpitations, cough, worsening SOB, abdominal pain. *Patient voiced that he does not want to be discharged to a rehab facility or [facility] but would rather go home Allergies Allergy/AdvReac Type Severity Reaction Status Date / Time poison jose extract Allergy Hives Unverified 12/11/23 13:53 phenobarbital AdvReac Severe MIGRAINE/SEVERE Verified 12/11/23 13:53 PAIN Home Medications Medication Instructions Recorded Confirmed Type folic acid 1 mg tablet 1 mg PO DAILY #90 tabs 10/15/23 01/22/24 Rx albuterol sulfate 90 mcg/actuation 2 puff inhalation Q4 PRN shortness 12/06/23 01/22/24 History aerosol inhaler of breath aspirin 81 mg capsule 81 mg PO HS 12/06/23 01/22/24 History fluticasone fur. 200 mcg-umeclid 1 inh inhalation DAILY 12/06/23 01/22/24 History 62.5 mcg-vilant 25 mcg inhalat.powder (Trelegy Ellipta) phenytoin sodium extended 100 mg 300 mg PO BID 12/06/23 01/22/24 History capsule citalopram 10 mg tablet (Celexa) 10 mg PO DAILY #90 tabs 12/11/23 01/22/24 Rx Past Med/Surg History Medical History No pertinent family history Seizure Closed head injury Depression Noncompliance Tobacco abuse counseling Acute dyspnea Acute hypoxemic respiratory failure Bronchopneumonia due to human metapneumovirus (hMPV) COPD with emphysema Hypertension Hypercholesterolemia Depression Seizure disorder Surgical History No pertinent past surgical history Tonsillectomy planned Thrombophlebitis Family History Other Adopted Family history unknown Social History Smoking Status: Former smoker Tobacco Type: Cigarettes Age Started Using Tobacco: 18; packs per day: 0.25; Cigarettes Per Day: 1/2 ppd; Smoking End Date: December 15, 2023; Second Hand Exposure: No; Do You Dip or Chew Tobacco: No; Hx Alcohol Use: No Hx Substance Use: No Preferred Language: Cambodian Communication Ability: Effective Visual Impairment: No Limitations Hearing Ability: Normal Production Metal Sprayer Required: No Beliefs That Will Affect Care: None marital status: Single Current Living Situation: Alone current occupational status: retired Feels Safe at Home: Yes Childhood Exposure to Second-Hand Smoke: Yes Diet: regular Diet Comment: Doesn't eat after 8 PM caffeine: Yes during the past year weight has: remained stable Dental Care, Regularly: No Physical Activity Frequency: Does not Exercise Physical Activity Frequency Comment: weight lifting 60minutes Seatbelt Use: always Sunscreen Use: No Gender Identity: Male Assistive Devices: Denture - Upper and Glasses Review of Systems Review of Systems: All systems reviewed & are unremarkable except as noted in HPI & below Physical Exam Physical Exam: General: patient resting comfortably, NAD, non-toxic in appearance, AA&O x 4 Skin: warm, dry, intact, no rashes or lesions HEENT: NC/AT, PERRL, EOMI, anicteric sclera, conjunctiva without injection, external ear normal to inspection and nontender, nares patent, moist mucus membranes, dentition intact, no oropharyngeal lesions, neck supple, trachea midline, no LAD, no thyromegaly, no JVD Heart: +S1/S2, regular, bradycardic, no m/r/g Lungs: equal air entry bilaterally, no rales/rhonchi/wheezes Abd: +BS, soft, NT/ND, no masses/organomegaly/ascites Ext: warm, 2+ pulses in UE/LE bilaterally, no clubbing/cyanosis or edema Neuro: nonfocal, patient AA&O x 4, speech intact, no facial droop, moving all extremities on command with equal strength 5/5 +Nystagmus, horizontal Results & Data Results & Data Vital Signs (Past 12 Hours) Vital Signs Temp Pulse Pulse Resp BP BP Pulse Ox 01/22/24 22:23 48 L 01/22/24 21:00 52 L 18 139/84 100 01/22/24 20:00 51 L 18 160/82 H 01/22/24 19:20 01/22/24 19:00 47 L 18 160/84 H 98 01/22/24 18:27 49 L 01/22/24 18:20 46 L 18 176/104 H 94 01/22/24 14:00 36.6 C 51 L 21 121/74 96 O2 Del Method 01/22/24 22:23 01/22/24 21:00 Room Air 01/22/24 20:00 Room Air 01/22/24 19:20 Room Air 01/22/24 19:00 Room Air 01/22/24 18:27 01/22/24 18:20 Room Air 01/22/24 14:00 Laboratory Results Laboratory Results WBC 8.60 K/ul (4.8-10.8) 01/22/24 15:27 RBC 4.89 M/uL (4.70-6.10) 01/22/24: Hgb 15.1 g/dl (14.0-18.0) 01/22/24: Hct 45.3 % (42.0-52.0) 01/22/24: MCV 92.6 fL (80.0-100.0) 01/22/24: MCH 30.9 pg (25.0-34.0) 01/22/24 MCHC 33.3 g/dL (32.0-36.0) 01/22/24 RDW Std Deviation 44.5 fL (36.4-46.3) 01/22/24 RDW Coeff of Tammi 13.1 % (11.5-14.5) 01/22/24 Plt Count 240 K/uL (130-400) 01/22/24 MPV 9.4 fL (9.4-12.4) 01/22/24 Immature Gran % (Auto) 0.5 % 01/22/24: Neut % (Auto) 73.4 % 01/22/24: Lymph % (Auto) 16.9 % 01/22/24 [place] % (Auto) 6.0 % 01/22/24 Eos % (Auto) 2.6 % 01/22/24 Baso % (Auto) 0.6 % 01/22/24 Neut # (Auto) 6.32 K/uL (1.40-6.50) 01/22/24 Lymph # (Auto) 1.45 K/uL (1.20-3.40) 01/22/24 [place] # (Auto) 0.52 K/uL (0.11-0.59) 01/22/24 Eos # (Auto) 0.22 K/uL (0.00-0.50) 01/22/24 Baso # (Auto) 0.05 K/uL (0.00-0.20) 01/22/24 Immature Gran # (Auto) 0.04 K/uL (0.01-0.20) 01/22/24: PT 11.6 Seconds (9.0-12.0) 01/22/24 15: INR 1.1 (0.9-1.1) 01/22/24 15: APTT 34 Seconds (21-31) H 01/22/24 15: PTT Ratio 1.2 01/22/24 15: Sodium 138 mmol/L (136-145) 01/22/24 15: Potassium 4.7 mmol/L (3.5-5.1) 01/22/24 15: Chloride 103 mmol/L (98-107) 01/22/24 15: Carbon Dioxide 31 mmol/L (21-32) 01/22/24 15: Anion Gap 4 (3-11) 01/22/24: BUN 27 mg/dl (6-23) H 01/22/24 15: Creatinine 0.97 mg/dl (0.6-1.4) 01/22/24: Est Cr Clr Drug Dosing Not Reportable 01/22/24: Est GFR ( Amer) 91.3 ml/min 01/22/24: Est GFR (Non-Af Amer) 78.8 ml/min 01/22/24 15: BUN/Creatinine Ratio 27.8 (10-20) H 01/22/24 15: Glucose 103 mg/dl (70-99(Fasting)) H 01/22/24 15: Calcium 9.6 mg/dl (8.6-10.3) 01/22/24: Magnesium 2.3 mg/dl (1.7-2.4) 01/22/24 15: Total Bilirubin 0.4 mg/dl (0.2-1.0) 01/22/24 15: AST 19 U/L (13-39) 01/22/24 15: ALT 16 U/L (7-52) 01/22/24 15: Alkaline Phosphatase 120 U/L (34-104) H 01/22/24 15:27 Troponin I High Sens 2.9 pg/ml (0-20) 01/22/24 15: Total Protein 7.7 gm/dl (6.0-8.3) 01/22/24 15: Albumin 4.6 gm/dl (3.4-5.0) 01/22/24 15:27 Globulin 3.1 gm/dl (2.5-4.0) 01/22/24 15:27 Albumin/Globulin Ratio 1.5 (0.9-2) 01/22/24 15:27 TSH 2.565 uIu/ml (0.300-4.500) 01/22/24 15:[address] 01/22/24 14:06 CT OF THE HEAD WITHOUT CONTRAST CLINICAL HISTORY: Dizziness. COMPARISON STUDY: MRI of the brain June 14, 2021. Head CT December 05, 2023. TECHNIQUE: Helical axial images of the head were obtained without IV contrast. Automated exposure control was utilized for the study. A dose lowering technique was utilized adhering to the principles of ALARA. FINDINGS: No acute intracranial hemorrhage is present. A 3.5 cm hyperdense extra-axial midline lesion along the cribriform plate is similar to CT of December 05, 2023. This has significantly increased in size since MRI of June 14, 2011. Jugular system is stable. Basal cisterns are patent. There are no extra axial collections. There are no findings to suggest acute dural sinus thrombosis or acute territorial infarct. There are no calvarial fractures. Mild sinus mucosal thickening is present. IMPRESSION: 1. No acute intracranial findings. 2. 3.5 cm hyperdense extra-axial midline lesion along the cribriform plate, similar to CT of December 05, 2023. This has significantly increased in size since MRI of the right first 2010. 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 ACT 112: Negative or not required by law. Electronically signed by: Juan Dominguez M.D. 01/22/2024 4:48 PM Head CTA 01/22/24 14:06 CTA ANGIOGRAPHY OF THE HEAD CLINICAL HISTORY: Dizziness. COMPARISON STUDY: MRI of the brain June 14, 2011. Head CT December 05, 2023. TECHNIQUE: Helical axial images of the head were obtained following uneventful intravenous administration of 118 cc of Optiray. Sagittal and coronal reconstructions were viewed as well as maximal intensity projections on an independent 3-D workstation. Automated exposure control was utilized for the study. A dose lowering technique was utilized adhering to the principles of ALARA. CT DOSE: 1151.05 mGy.cm FINDINGS: No acute intracranial hemorrhage is identified. Jugular system is unremarkable. Basal cisterns are patent. An enhancing 3.6 cm extra-axial midline lesion overlying the cribriform plate is noted. This is unchanged December 05, 2023. The bilateral M1, M2, A1 and A2 segments are patent. No intracranial aneurysm. Left vertebral artery is dominant. 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 No central vessel occlusion is identified. IMPRESSION: 1. No central vessel occlusion. No intracranial aneurysm. 2. 3.6 cm enhancing extra-axial midline lesion overlying the cribriform plate. 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 This is similar to CT of December 07, 2023 and significantly increased in size since MRI June 14, 2011. ACT 112: Negative or not required by law. Electronically signed by: Juan Dominguez M.D. 01/22/2024 5:02 PM Neck CTA 01/22/24 14:06 NECK CTA HISTORY: Dizziness TECHNIQUE: Multiaxial CT images of the neck were performed following the intravenous administration of contrast to evaluate the major cervical vessels. 3D/MIP images were also obtained. Sagittal and coronal reformats were reviewed. All measurements were calculated based on NASCET criteria. A dose lowering technique was utilized adhering to the principles of ALARA. COMPARISON STUDY: None. FINDINGS: The aortic arch and proximal great vessels are widely patent. There is no significant stenosis, occlusion, or dissection identified within the bilateral common carotid, internal carotid, or vertebral arteries. Emphysema. Hypoplastic right vertebral artery in comparison to the left. Mild calcified plaque within the bilateral carotid bifurcations. IMPRESSION: No significant stenosis, occlusion, or dissection identified within the carotid or vertebral arteries. ACT 112: Negative or not required by law. Electronically signed by: Tony Dasilva M.D. 01/22/2024 4:48 PM PG Care Time/CCT Total # of Minutes Spent Total Time Spent with Patient: Total time spent is greater than 50% in coordination of care (as documented) at patient's floor/unit and/or counseling patient: Coding Level of Care Code 47417 INT INP/OBS CARE 2/55MIN Diagnoses Ambulatory dysfunction R26.2 Dizziness R42 Seizure R56.9 Depression F32.A COPD (chronic obstructive pulmonary disease) J44.9
[2024-01-23] MEDS ORDERED: ONDANSETRON INJ 2 MG/ML 2 ML VIAL IV PRN (01:16)
[2024-01-23] MEDS ORDERED: ACETAMINOPHEN 325 MG TAB PO PRN (01:16)
[2024-01-23] MEDS ORDERED: ALBUTEROL HFA 8 GM INHALER INH PRN (01:16)
[2024-01-23 01:52] LABS: Thyroid Stimulating Hormone 2.565 uIu/ml (0.300-4.500)
[2024-01-23 08:23] LABS: Hematocrit (blood only) 40.2 % (42.0-52.0); Hemoglobin 13.5 g/dl (14.0-18.0); Mean Corpuscular Hemoglobin 30.6 pg (25.0-34.0); Mean Corpuscular Hgb Conc 33.6 g/dL (32.0-36.0); Mean Corpuscular Volume 91.2 fL (80.0-100.0); Mean Platelet Volume 9.6 fL (9.4-12.4); Platelet Count 199 K/uL (130-400); RDW Coefficient of Variation 13.2 % (11.5-14.5); RDW Standard Deviation 43.9 fL (36.4-46.3); Red Blood Count 4.41 M/uL (4.70-6.10); White Blood Count 7.74 K/ul (4.8-10.8)
[2024-01-23 08:46] LABS: Albumin Level 3.8 gm/dl (3.4-5.0); BUN Creatinine Ratio 25.9 (10-20); Bilirubin Direct 0.1 mg/dl (0-0.2); Bilirubin,Total 0.4 mg/dl (0.2-1.0); Calcium 9.1 mg/dl (8.6-10.3); Creatinine Clr Calc Pharmacy 81.6 ml/min; Est GFR (African American) 102.3 ml/min; Est GFR (Non-African American) 88.3 ml/min; Potassium 4.2 mmol/L (3.5-5.1); Total Protein 6.3 gm/dl (6.0-8.3)
[2024-01-23] MEDS: FOLIC ACID 1 MG TAB PO SCH (08:49)
[2024-01-23] MEDS: CITALOPRAM 20 MG TAB PO SCH (08:49)
[2024-01-23] MEDS: PHENYTOIN SODIUM ER 100 MG CAP PO SCH (08:49)
[2024-01-23] MEDS: FLUTICASONE FUROATE 200MCG 14 PUFFS/INHALER INH SCH (08:50)
[2024-01-23] MEDS: UMECLIDINIUM/VILANTEROL 62.5/25MCG 7 PUFFS/INHALER INH SCH (08:50)
[2024-01-23] MEDS: MECLIZINE HCL 25 MG TAB PO PRN (08:53)
[2024-01-23] MEDS ORDERED: NON-FORMULARY MEDICATION (Fluticasone-Umeclidin-Vilanter [Trelegy Ellipta] 200-62.5-25 mcg INH SCH (09:00)
--- NOTE | 2024-01-23 11:18 | Hospitalist Progress Note ---
Date of Service January 23, 2024 Assessment & Plan (1) Ambulatory dysfunction: Plan: - Ambulatory dysfunction, dizziness, and some visual disturbance x1 week Concern for intractable vertigo - Patient reports multiple falls at home secondary to ambulatory dysfunction. - Continue scheduled meclizine - Phenytoin level pending -- Phenytoin toxicity can cause symptoms of unsteady gait, horizontal nystagmus, gradually worsening mental status, lethargy, confusion - Positive orthostatic VS. Continue monitoring orthostatic VS twice daily. - Continue to follow with PT and OT. -- PT to do vestibular dysfunction exercises. (2) Seizure: Plan: - Chronic. Stable patient reports he hasn't had a seizure for years -Concern for toxic encephalopathy has unknown phenytoin level, hold phenytoin pending phenytoin level. (3) Depression: Plan: - Chronic. Stable - Continue Citalopram (4) COPD (chronic obstructive pulmonary disease): Plan: - No cough, SOB or wheeze. Adequate oxygenation on room air. - Continue Umeclidinium/Vilanterol - Albuterol PRN Plan CODE STATUS: Full code Admission and Anticipated Discharge Date Admission Date: January 22, 2024 Subjective Patient seen and evaluated at bedside. He attempted to stand up from bed and walk with me in the room, however, he became very unsteady on his feet and was sat back down on the bed. 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 He reports feeling like his body is quivering and feels like he is slurring his speech. However, no tremors are noted and his speech is clear. He says that when he is laying down, he feels like the room is spinning at times. When he is standing up, he reports visual disturbances including a bouncing sensation of his visual field. He denies any nausea. Denies tinnitus, shortness of breath, chest pain, abdominal symptoms, or urinary symptoms. Physical Exam Physical Exam: General: No acute distress, nondiaphoretic, well-developed, well-nourished. Skin: The skin was without rashes, erythema, edema, or bruising. Cardiac: Bradycardic. Regular rhythm without murmurs gallops or rubs. Pulm: Clear to auscultation bilaterally without wheezes, rales or rhonchi. No retractions or accessory muscle use. Abdominal: Positive bowel sounds x 4. Soft, nontender, without masses or organomegaly. No guarding or rebound tenderness. Neuro: A&O x3. No focal neurological deficits. Speech clear. No facial droop. Moving all extremities on command with equal strength 5/5. + Horizontal nystagmus. Results & Data Results & Data Vital Signs (Past 12 Hours) Vital Signs Temp Pulse Pulse Resp BP BP Pulse Ox 01/23/24 07:36 36.8 C 49 L 16 123/75 96 01/23/24 01:30 01/23/24 01:30 36.6 C 47 L 18 155/86 H 99 01/23/24 00:51 49 L 18 139/79 97 O2 Del Method 01/23/24 07:36 Room Air 01/23/24 01:30 Room Air 01/23/24 01:30 Room Air 01/23/24 00:51 Room Air Laboratory Results Reviewed CBC Reviewed CMP PG Care Time/CCT Total # of Minutes Spent Total Time Spent with Patient: Total time spent is greater than 50% in coordination of care (as documented) at patient's floor/unit and/or counseling patient: Coding Level of Care Code 08010 SUB INP/OBS CARE 2/35MIN Diagnoses Ambulatory dysfunction R26.2 Seizure R56.9 Depression F32.A COPD (chronic obstructive pulmonary disease) J44.9
[2024-01-23] MEDS: MECLIZINE HCL 25 MG TAB PO SCH (20:37)
[2024-01-23] MEDS: ASPIRIN 81 MG ECTAB PO SCH (20:37)
--- NOTE | 2024-01-23 23:10 | Electrocardiogram Report ---
Test Reason : Blood Pressure : / mmHG Vent. Rate : 049 BPM Atrial Rate : 049 BPM P-R Int : 166 ms QRS Dur : 094 ms QT Int : 452 ms P-R-T Axes : 083 061 075 degrees QTc Int : 408 ms Sinus bradycardia Otherwise normal ECG When compared with ECG of 25-FEB-2023 20:29, Vent. rate has decreased BY 42 BPM Nonspecific T wave abnormality no longer evident in Anterior leads Confirmed by Alberto De Los Santos ([id number]) on 01/23/2024 11:09:30 PM Referred By: Confirmed By:Alberto De Los Santos
[2024-01-24 07:31] LABS: Hematocrit (blood only) 39.9 % (42.0-52.0); Hemoglobin 13.4 g/dl (14.0-18.0); Mean Corpuscular Hemoglobin 30.4 pg (25.0-34.0); Mean Corpuscular Hgb Conc 33.6 g/dL (32.0-36.0); Mean Corpuscular Volume 90.5 fL (80.0-100.0); Mean Platelet Volume 9.2 fL (9.4-12.4); Platelet Count 207 K/uL (130-400); RDW Coefficient of Variation 13.1 % (11.5-14.5); Red Blood Count 4.41 M/uL (4.70-6.10); White Blood Count 7.49 K/ul (4.8-10.8)
[2024-01-24 08:00] LABS: BUN Creatinine Ratio 22.8 (10-20); Calcium 9.1 mg/dl (8.6-10.3); Creatinine Clr Calc Pharmacy 60.8 ml/min; Est GFR (African American) 75.1 ml/min; Est GFR (Non-African American) 64.8 ml/min; Potassium 4.3 mmol/L (3.5-5.1)
--- NOTE | 2024-01-24 11:26 | Hospitalist Progress Note ---
Date of Service January 24, 2024 Assessment & Plan (1) Ambulatory dysfunction: Plan: - Ambulatory dysfunction, dizziness, and some visual disturbance x1 week Concern for intractable vertigo - Patient reports multiple falls at home secondary to ambulatory dysfunction. - Continue scheduled meclizine - Phenytoin level pending -- Phenytoin toxicity can cause symptoms of unsteady gait, horizontal nystagmus, gradually worsening mental status, lethargy, confusion - Positive orthostatic VS. Continue monitoring orthostatic VS twice daily. - Continue to follow with PT and OT. -- PT to do vestibular dysfunction exercises. (2) Seizure: Plan: - Chronic. Stable patient reports he hasn't had a seizure for years -Concern for toxic encephalopathy has unknown phenytoin level, hold phenytoin pending phenytoin level. (3) Depression: Plan: - Chronic. Stable - Continue Citalopram (4) COPD (chronic obstructive pulmonary disease): Plan: - No cough, SOB or wheeze. Adequate oxygenation on room air. - Continue Umeclidinium/Vilanterol - Albuterol PRN Plan CODE STATUS: Full code Admission and Anticipated Discharge Date Admission Date: January 24, 2024 Subjective Patient seen and evaluated at bedside. He reports that he has not been dizzy this morning and that he "can't quite describe" the visual disturbances that he experiences, but states it is like a portion of his visual field is bouncing vertically. He states that he would like to go home and is not interested in acute rehab. He did get out of bed and walked around the room, and was more stable on his feet today compared to yesterday. He states that he will use his rolling walker when he feels unsteady at home. I voiced my concerns about him falling if he returns home immediately without rehab, to which he still insisted he is not interested in rehab. He is aware that a fall could cause long-term injuries. He denies any complaints at this time. Physical Exam Physical Exam: General: No acute distress, nondiaphoretic, well-developed, well-nourished. Skin: The skin was without rashes, erythema, edema, or bruising. Cardiac: Bradycardic. Regular rhythm without murmurs gallops or rubs. Pulm: Clear to auscultation bilaterally without wheezes, rales or rhonchi. No retractions or accessory muscle use. Abdominal: Positive bowel sounds x 4. Soft, nontender, without masses or organomegaly. No guarding or rebound tenderness. Neuro: A&O x3. No focal neurological deficits. Speech clear. No facial droop. Moving all extremities on command with equal strength 5/5. Results & Data Results & Data Vital Signs (Past 12 Hours) Vital Signs Temp Pulse Resp BP Pulse Ox O2 Del Method 01/24/24 07:32 36.6 C 53 L 16 157/84 H 95 Room Air Laboratory Results Reviewed CBC Reviewed BMP PG Care Time/CCT Total # of Minutes Spent Total Time Spent with Patient: Total time spent is greater than 50% in coordination of care (as documented) at patient's floor/unit and/or counseling patient: Coding Diagnoses Ambulatory dysfunction R26.2 Seizure R56.9 Depression F32.A COPD (chronic obstructive pulmonary disease) J44.9
--- NOTE | 2024-01-24 17:20 | Communication Note ---
Date of Service: January 24, 2024 By CMS guidelines, a determination that the admission or continued stay is not medically necessary has been made by a member of the UR committee and a phys ician for this hospital stay, therefore a Code 44 will be completed and the Inpatient admission will be changed to outpatient.
--- NOTE | 2024-01-24 18:44 | Discharge Summary ---
Date of Service January 24, 2024 Admission HPI Per Admitting Provider Nelson Collado i a 68yo male with history of meningioma, seizure disorder, depression, COPD, HTN, HLP presenting with ambulatory dysfunction. Patient lives alone in a trailer in [place]. He reports over the last week he has had difficulty ambulating due to dizziness. 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 His symptoms start when he changes position - goes from sitting to standing. He has started to get up more slowly but is still having the symptoms. He reports his "body doesn't want to cooperate" and he ends up feeling very unsteady, using the wall to support him as he walks. He reports that he doesn't necessarily feel vertigo. He did have some tinnitus before this occurred. Denies hearing loss. His vision is not blurry but is "shaking" and things "seem like they're bouncing". He has had some nausea. Otherwise no complaints - denies fever, chills, recent illness, chest pain, palpitations, cough, worsening SOB, abdominal pain. *Patient voiced that he does not want to be discharged to a rehab facility or [facility] but would rather go home Admission Exam Per Admitting Provider General: patient resting comfortably, NAD, non-toxic in appearance, AA&O x 4 Skin: warm, dry, intact, no rashes or lesions HEENT: NC/AT, PERRL, EOMI, anicteric sclera, conjunctiva without injection, external ear normal to inspection and nontender, nares patent, moist mucus membranes, dentition intact, no oropharyngeal lesions, neck supple, trachea midline, no LAD, no thyromegaly, no JVD Heart: +S1/S2, regular, bradycardic, no m/r/g Lungs: equal air entry bilaterally, no rales/rhonchi/wheezes Abd: +BS, soft, NT/ND, no masses/organomegaly/ascites Ext: warm, 2+ pulses in UE/LE bilaterally, no clubbing/cyanosis or edema Neuro: nonfocal, patient AA&O x 4, speech intact, no facial droop, moving all extremities on command with equal strength 5/5 +Nystagmus, horizontal Principal Diagnosis Ambulatory dysfunction Dizziness History of seizures Discharge Exam General: No acute distress, nondiaphoretic, well-developed, well-nourished. Skin: The skin was without rashes, erythema, edema, or bruising. Cardiac: Bradycardic. Regular rhythm without murmurs gallops or rubs. Pulm: Clear to auscultation bilaterally without wheezes, rales or rhonchi. No retractions or accessory muscle use. Abdominal: Positive bowel sounds x 4. Soft, nontender, without masses or organomegaly. No guarding or rebound tenderness. Neuro: A&O x3. No focal neurological deficits. Speech clear. No facial droop. Moving all extremities on command with equal strength 5/5. + Horizontal nystagmus. Discharge Data Allergies Allergy/AdvReac Type Severity Reaction Status Date / Time poison jose extract Allergy Hives Unverified 12/11/23 13:53 phenobarbital AdvReac Severe MIGRAINE/SEVERE Verified 12/11/23 13:53 PAIN Consultations 01/22/24 21:39 ED Decision to Admit Stat Ordered Studies 01/22/24 14:06 CT angio head w con Stat CT angio neck with con Stat CT head/brain wo con Stat Hospital Course (1) Ambulatory dysfunction: - Patient presented with ambulatory dysfunction, dizziness, and some visual disturbance x1 week -- Concern for intractable vertigo - Patient reports multiple falls at home secondary to ambulatory dysfunction. - Phenytoin level pending. -- Phenytoin toxicity can cause symptoms of unsteady gait, horizontal nystagmus, gradually worsening mental status, lethargy, confusion - Positive orthostatic VS. - Patient demanded to be discharged. I did not feel like it was fully appropriate, but I wanted to support him and provide thorough instructions and prescriptions upon discharge. - Upon discharge: -- Continue taking meclizine -- Decrease phenytoin dose to 200 mg twice daily. Since the phenytoin level has not resulted from the lab yet, I believe a decreased dose is the safest option and balancing seizure prevention with medication toxicity as the cause for his ambulatory dysfunction. I will personally call the patient with the phenytoin level once resulted. -- Rolling walker provided to patient for home use. Educated patient on the importance of using this while he experiences dizziness and ambulatory dysfunction to ensure safety and prevent falls. (2) Seizure: - Chronic. Stable. Patient reports he hasn't had a seizure for years. - Concern for toxic encephalopathy has unknown phenytoin level, phenytoin held while inpatient pending phenytoin level. - Decrease phenytoin to 200 mg twice daily until phenytoin level results from lab. (3) Depression: - Chronic. Stable - Continue Citalopram (4) COPD (chronic obstructive pulmonary disease): - No cough, SOB or wheeze. Adequate oxygenation on room air. - Continue Umeclidinium/Vilanterol - Albuterol PRN Plan CODE STATUS: Full code Total Time Total Time Spent Total Time Spent (In Minutes): Greater than 30 minutes spent completing this discharge process including direct patient care, medication reconciliation, documentation, review of labs and images, and coordination of care. Discharge Plan Discharge Items Patient Disposition: Home - Self-Care Reason For Visit: WEAKNESS, AMBULATORY DYSFUNCTION Discharge Diagnosis: Ambulatory dysfunction Vertigo Activity: As commented below Activity Comment: Please use your rolling walker as needed to safely ambulate. Non-emergency contact: Primary Care Provider Call non-emergency contact if: you have any medication questions and your symptoms worsen Follow-up/Referrals: Noemy Arroyo CRNP [Primary Care Provider] - Diet: Heart Healthy Addtl Attending Provider Instructions: Mr. Collado, Fer were admitted to the hospital due to ambulatory dysfunction, dizziness, and some visual disturbances. You had a head CT and a head and neck CTA, all which showed no acute abnormalities. There was concern for phenytoin (Dilantin) toxicity, as that can cause symptoms of unsteady gait, horizontal nystagmus, gradually worsening mental status, weakness, and confusion. A phenytoin level was sent out to the lab, however, the result has not come back yet. I will personally call you with that result when it comes in. Upon discharge from the hospital: * Decrease Phenytoin to 200 mg (2 pills) twice daily (morning and evening). Since we do not have an answer on your phenytoin level yet, I believe that decreasing the dose but not stopping it completely is the smartest decision as this medication is important in preventing seizures. * Continue Meclizine 25 mg three times daily. This vertigo medicine prevents dizziness, nausea, and vomiting. This prescription has been sent to your pharmacy. * Use your rolling walker with activity to ensure ambulating safely. * Continue your other medications as prescribed. If your dizziness last more than a few seconds, sit or lie down until it passes. This may help prevent injury in case you fall or pass out. Get up slowly when you begin to feel better. Please follow-up with your primary care provider in the next week or 2 to discuss your hospital course and evaluate how you are doing symptomatically at that point. Please return to the hospital if you experience any of the following: Worsening dizziness or difficulty walking, severe nausea and vomiting, passing out/fainting, shortness of breath, chest pain, feeling like your heart is beating fast or hard, or if you have a seizure. It was a pleasure taking care of you while you were in the hospital, Magdalena Gonzalez PA-C Pending Studies at Discharge: Yes Studies:: Phenytoin level Stand-Alone Forms: My [facility] Insurance Business Applications, Smoking Cessation Medications and DC Order Prescriptions: New meclizine 25 mg Tablet 25 mg PO TID Qty: 30 0RF Continued folic acid 1 mg tablet 1 mg PO DAILY Qty: 90 3RF citalopram [Celexa] 10 mg tablet 10 mg PO DAILY Qty: 90 3RF Trelegy Ellipta 200-62.5-25 mcg blister with device 1 inh INHALATION DAILY albuterol sulfate 90 mcg/actuation HFA aerosol inhaler 2 puff INHALATION Q4 PRN (Reason: shortness of breath) aspirin 81 mg Capsule 81 mg PO HS Changed phenytoin sodium extended 100 mg capsule 200 mg PO BID Qty: 60 0RF Discharge Orders: Discharge Order (Routine); Ordered 01/24/24 Ordered By: Magdalena Buck/Other Patient Handouts: Preventing Falls in the Home, ED Walker Use Admission Data Admit Date/Time: 01/24/24 10:14 Attending Provider: David Barney Admit Provider: Shahla Nelson Primary Care Provider: Noemy Arroyo Other Providers: Shahla Nelson Other Interventions: Discharge Summary Assessment (RN) Last Done: 01/24/24 17:32 Coding Level of Care Code 20967 INP/OBS DISCH >30 MIN Diagnoses Ambulatory dysfunction R26.2 Seizure R56.9 Depression F32.A COPD (chronic obstructive pulmonary disease) J44.9
== END 2024-01-24 18:38 | disposition home or self-care (01) | DRG 93 ==
LOC: ED 13:37 → 3N 13:37 → SUATTDRO 22:59 → 3N 01-23 00:58